=== PATIENT | male | born 1955 | race Caucasian/White ===

== ENCOUNTER 2021-01-07 11:23 | Outpatient (CLI) | payer MEDICARE, OTHER, SELFPAY ==
--- NOTE | ~2021-01-07 | MM_ITS ---
EXAMINATION: MM diagnostic mammo BI HISTORY: Bilateral retroareolar thickening TECHNIQUE: MLO and craniocaudal views of both breasts. CAD analysis was submitted and interpreted. COMPARISON: None BREAST PARENCHYMAL COMPOSITION: The breasts are almost entirely fatty. FINDINGS: No suspicious mass or architectural distortion, malignant calcification, skin thickening or retraction is detected. IMPRESSION: 1. No mammographic evidence of malignancy 2. No recommendations. BI-RADS Category 1: Negative Reviewed, dictated and finalized at location A.
== END 2021-01-07 11:24 | disposition home or self-care (01) ==
PROVIDERS: PCP Internal Medicine; Visit Provider Internal Medicine
DX: N63.32 Unspecified lump in axillary tail of the left breast (principal)
CPT/HCPCS: 77066

== ENCOUNTER 2021-06-16 08:26 | Outpatient (CLI) | payer MEDICARE, OTHER, SELFPAY ==
--- NOTE | 2021-07-06 18:22 | WPDSLEEPSTUD ---
Sleep Study Date of Study: 06/16/21 <Laney Orozco DO - Last Filed: 07/06/21 18:46> Ordering Provider: Mary Zamarripa MD <Laney Orozco DO - Last Filed: 07/06/21 18:46> Interpreting Physician: Laney Orozco DO <Laney Orozco DO - Last Filed: 07/06/21 18:46> Sleep Study Type: Polysomnogram <Laney Orozco DO - Last Filed: 07/06/21 18:46> Height: 1.93 m <Laney Orozco DO - Last Filed: 07/06/21 18:46> Weight: 148.831 kg <Laney Orozco DO - Last Filed: 07/06/21 18:46> Body Mass Index: 39.9 <Laney Orozco DO - Last Filed: 07/06/21 18:46> Neck Circumference (inches): 21 <Laney Orozco DO - Last Filed: 07/06/21 18:46> [place]: 7 <Laney Orozco DO - Last Filed: 07/06/21 18:46> Reason for Sleep Study The patient has known ASHA. He initially started using PAP in 2018. He was on CPAP 17 cm H2O but then was changed to autoPAP 15-20 cm H2O. He still had unrefreshing sleep and daytime hypersomnia despite the pressure chnages. <Laney Orozco DO - Last Filed: 07/06/21 18:46> Sleep History The patient is a 65-year-old male with previously diagnosed obstructive sleep apnea, atrial fibrillation, hypertension, venous insufficiency with stasis dermatitis and dyslipidemia that had a sleep study ordered by his primary care physician to recall of 5 for PAP therapy. The patient occasionally awakens from sleep short of breath. He denies awakening at night with heartburn, belching or cough. He occasionally snores loud enough that others complain. He denies having trouble sleeping when he has a cold. He frequently wakes up gasping for air throughout the night. He frequently has breathing problems at night observed by others. He rarely sweats excessively at night. He frequently has heart palpitations or irregular heartbeats during the night. He denies falling asleep during the day and while driving. He denies having trouble at school or work due to sleepiness. He denies sleep paralysis, cataplexy and hypnagogic / hypnopompic hallucinations. He rarely has nightmares. He occasionally has thoughts racing through his mind. He denies feeling sad or depressed. He occasionally feels anxious. He rarely notices parts of his body jerk. He denies kicking throughout the night. He occasionally has crawling and aching feelings in his legs but denies leg pain during the night. He denies grinding his teeth during sleep and awakening with jaw pain in morning. He is constantly bothered by pain during the day but rarely awakened by pain during the night. He frequently wakes up feeling stiff in the morning with sore and achy muscles. He goes to bed at 11:00 p.m. on both weekdays and weekends. It typically takes him between 15 and 45 minutes to fall asleep. He will wake up between 3 and 4 times per night. When he awakens, he will change positions and fall back asleep. He wakes up between 630 and 7:00 a.m. on both weekdays and weekends. He will typically stay in bed for 5 minutes after awakening in the morning. He is currently living with his girlfriend. He does not consume any caffeinated beverages within 2 hours of bedtime. He does not engage in physical exercise before bedtime. He will read and watch television before falling asleep. He does not take naps in the afternoon or the evening. He consumes caffeinated beverages daily. He has between 3 and 4 alcoholic drinks per day. He denies tobacco and recreational drug use. <Laney Orozco DO - Last Filed: 07/06/21 18:46> [facility] Past Medical History Medical History: Medical History Abdominal wall hernia repaired 2014 Anemia Atrial fibrillation Diastasis recti Dyslipidemia Essential hypertension ASHA (obstructive sleep apnea) Stasis dermatitis Venous insufficiency <Laney Orozco DO - Last Filed:
[2021-07-06 18:33] VITALS: BMI 39.9
== END 2021-06-17 07:21 | disposition home or self-care (01) ==
LOC: ANHCSM 08:27
PROVIDERS: PCP Internal Medicine; Visit Provider Internal Medicine Critical Care Medicine
DX: G47.33 Obstructive sleep apnea (adult) (pediatric) (principal)
CPT/HCPCS: 95810

== ENCOUNTER 2021-07-21 07:50 | Outpatient (CLI) | payer MEDICARE, OTHER, SELFPAY ==
--- NOTE | 2021-08-09 20:30 | WPDSLEEPSTUD ---
Sleep Study Date of Study: 07/21/21 <Laney Orozco DO - Last Filed: 08/10/21 14:18> Ordering Provider: Mary Zamarripa MD <Laney Orozco DO - Last Filed: 08/10/21 14:18> Interpreting Physician: Laney Orozco DO <Laney Orozco DO - Last Filed: 08/10/21 14:18> Sleep Study Type: BiPAP Titration <Laney Orozco DO - Last Filed: 08/10/21 14:18> Height: 1.93 m <Laney Orozco DO - Last Filed: 08/10/21 14:18> Weight: 153.314 kg <Lnaey Orozco DO - Last Filed: 08/10/21 14:18> Body Mass Index: 41.1 <Laney Orozco DO - Last Filed: 08/10/21 14:18> Neck Circumference (inches): 20.5 <Laney Orozco DO - Last Filed: 08/10/21 14:18> [place]: 2 <Laney Orozco DO - Last Filed: 08/10/21 14:18> Reason for Sleep Study The patient had a PSG on 06/16/2021 that showed an AHI of 30.4. It was recommended that he have a BPAP Titration starting at 12/8 cm H2O. <Laney Orozco DO - Last Filed: 08/10/21 14:18> Sleep History The patient is a 65-year-old male with previously diagnosed obstructive sleep apnea, atrial fibrillation, hypertension, venous insufficiency with stasis dermatitis and dyslipidemia that had a sleep study ordered by his primary care physician to recall of 5 for PAP therapy. The patient occasionally awakens from sleep short of breath. He denies awakening at night with heartburn, belching or cough. He occasionally snores loud enough that others complain. He denies having trouble sleeping when he has a cold. He frequently wakes up gasping for air throughout the night. He frequently has breathing problems at night observed by others. He rarely sweats excessively at night. He frequently has heart palpitations or irregular heartbeats during the night. He denies falling asleep during the day and while driving. He denies having trouble at school or work due to sleepiness. He denies sleep paralysis, cataplexy and hypnagogic / hypnopompic hallucinations. He rarely has nightmares. He occasionally has thoughts racing through his mind. He denies feeling sad or depressed. He occasionally feels anxious. He rarely notices parts of his body jerk. He denies kicking throughout the night. He occasionally has crawling and aching feelings in his legs but denies leg pain during the night. He denies grinding his teeth during sleep and awakening with jaw pain in morning. He is constantly bothered by pain during the day but rarely awakened by pain during the night. He frequently wakes up feeling stiff in the morning with sore and achy muscles. He goes to bed at 11:00 p.m. on both weekdays and weekends. It typically takes him between 15 and 45 minutes to fall asleep. He will wake up between 3 and 4 times per night. When he awakens, he will change positions and fall back asleep. He wakes up between 630 and 7:00 a.m. on both weekdays and weekends. He will typically stay in bed for 5 minutes after awakening in the morning. He is currently living with his girlfriend. He does not consume any caffeinated beverages within 2 hours of bedtime. He does not engage in physical exercise before bedtime. He will read and watch television before falling asleep. He does not take naps in the afternoon or the evening. He consumes caffeinated beverages daily. He has between 3 and 4 alcoholic drinks per day. He denies tobacco and recreational drug use. <Laney Orozco DO - Last Filed: 08/10/21 14:18> [facility] Past Medical History Medical History: Medical History Abdominal wall hernia repaired 2014 Anemia Atrial fibrillation Diastasis recti Dyslipidemia Essential hypertension ASHA (obstructive sleep apnea) Stasis dermatitis Venous insufficiency <Laney Orozco DO - Last Filed: 08/10/21 14:18> Surgical History Surgical History: Surgical History (Review
[2021-08-10 14:10] VITALS: BMI 41.1
== END 2021-07-22 07:03 | disposition home or self-care (01) ==
LOC: ANHCSM 07:51
PROVIDERS: PCP Internal Medicine; Visit Provider Internal Medicine Critical Care Medicine
DX: G47.33 Obstructive sleep apnea (adult) (pediatric) (principal)
CPT/HCPCS: 95811

== ENCOUNTER 2021-10-27 10:48 | Outpatient (CLI) | payer MEDICARE, OTHER, SELFPAY ==
--- NOTE | ~2021-10-27 | XR_ITS ---
XR lumbar spine 2-3V DATE: 10/27/2021 11:52 INDICATION: Back pain TECHNIQUE: AP, lateral, coned lateral lumbosacral views COMPARISON: 10/20/2017 lumbar spine 01/16/2017 MRI lumbar spine FINDINGS: Again noted is grade 1 anterolisthesis at L5-S1 due to bilateral L5 pars intra-articular is defects. There is moderately severe degenerative disc disease at L3-4 and L5-S1 and to a lesser extent L4-5. The included lower thoracic and lumbar pedicles are intact. No fracture or bone destruction is evident. The lumbar pedicles appear intact. The sacral iliac joints appear normal. Surgical clips overlie the right upper quadrant, likely due to cholecystectomy. IMPRESSION: Bilateral L5 pars defects with grade 1 anterolisthesis at L5-S1 Multilevel degenerative disc disease, greatest at L3-4 and L5-S1 Little interval change since 10/20/2017 Reviewed, dictated and finalized at location A.
--- NOTE | ~2021-10-27 | US_ITS ---
EXAMINATION: US abdomen complete EXAM DATE: 10/27/2021 11:50 INDICATION: Z87.898 - Personal history of other specified conditions . TECHNIQUE: Multiple grayscale and Doppler images of the complete abdomen were obtained (by a technolo gist who performed the scan) and subsequently reviewed. Correlation is made to CT and MRI abdomen fro m 2010. FINDINGS: The abdominal aorta is normal in caliber. Visualized portion IVC is patent. The pancreatic head a nd body are normal in appearance. The pancreatic tail is not visualized. The liver has normal echogenicity and contour. There is a mass probably left liver lobe measuring 4 cm. Correlating with a prior MRI report from 2010, patient does have known masses which have been pre viously suspected to be benign. Largest mass on that study measured 5 cm. There is no evidence of in trahepatic biliary duct dilation. Portal venous flow was seen in the hepatopedal, normal direction a nd has normal Doppler waveform. Common bile duct measures 5 mm, which is normal. The gallbladder fossa is unremarkable. Right kidney: There is normal contour and echogenicity. It measures 12.9 x 5.5 x 6.7 centimeters. There are no focal renal lesions identified. There is no hydronephrosis. Left kidney: There is normal contour and echogenicity. It measures 14.1 x 5.0 x 5.6 centimeters. A focal lobular region was measured at 2.7 x 2.0 x 2.1 cm, most likely dromedary hump (normal renal cor tical lobulation). Correlation for this was made with coronal CT images from 2010 which does show lob ulation in this region. There is a cyst in the superior pole of the left kidney. There is no hydron ephrosis. The spleen measures 16.9 centimeters which is moderately enlarged. IMPRESSION: 1. Left liver lobe 4 cm mass probably the largest suspected benign mass on MRI from 2010. 2. Moderate splenomegaly. Normal portal venous flow. Reviewed, dictated and finalized at location B.
--- NOTE | ~2021-10-27 | XR_ITS ---
XR hip BI 2V w AP pelvis DATE: 10/27/2021 11:51 INDICATION: Back pain TECHNIQUE: AP pelvis. AP and lateral views of each hip. COMPARISON: None FINDINGS: The pubic symphysis and sacroiliac joints are intact. No pelvic fracture or bone destruction is detected. There is mild bilateral hip osteoarthritis. No fracture or dislocation, avascular necrosis or bone de struction is detected. IMPRESSION: Mild bilateral hip osteoarthritis Reviewed, dictated and finalized at location A.
== END 2021-10-27 10:49 | disposition home or self-care (01) ==
PROVIDERS: PCP Internal Medicine; Visit Provider Internal Medicine
DX: M47.817 Spondylosis without myelopathy or radiculopathy, lumbosacral region (principal); F10.10 Alcohol abuse, uncomplicated; Z87.898 Personal history of other specified conditions; R16.0 Hepatomegaly, not elsewhere classified; R16.1 Splenomegaly, not elsewhere classified; M16.0 Bilateral primary osteoarthritis of hip
CPT/HCPCS: 72100; 73521; 76700

== ENCOUNTER 2021-12-07 08:41 | Outpatient (CLI) | payer MEDICARE, OTHER, SELFPAY ==
--- NOTE | ~2021-12-07 | XR_ITS ---
EXAMINATION: XR chest 2V 12/07/2021 12:59 INDICATION: Status post fall. Right chest pain. PROCEDURE: 2 view chest COMPARISON: No prior studies for comparison. FINDINGS: The lungs are clear. The cardiomediastinal silhouette is borderline. There are no pleural effusions. There is no pneumothorax suspected. IMPRESSION: 1: NO ACUTE CARDIOPULMONARY DISEASE. Reviewed, dictated and finalized at location A.
--- NOTE | 2021-12-07 11:15 | NEURO_ITS ---
Impression: # Complains of numbness of feet. 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 # Needle/EMG revealed no active denervation potentials but severe scarcity of motor unit potentials. # Clinical correlation recommended. Nerve Conduction Studies Anti Sensory Summary Table Stim Site NR Peak (ms) P-T Amp (?V) Site1 Site2 Delta-P (ms) Dist (cm) Ron (m/s) Left Sup Fibular Anti Sensory (Ant Lat Mall) NO RESPONSE 14 cm NR 14 cm Ant Lat Mall 16.0 Right Sup Fibular Anti Sensory (Ant Lat Mall) NO RESPONSE 14 cm NR 14 cm Ant Lat Mall 16.0 Left Sural Anti Sensory (Lat Mall) NO RESPONSE Calf NR Calf Lat Mall 16.0 Right Sural Anti Sensory (Lat Mall) NO RESPONSE Calf NR Calf Lat Mall 16.0 Motor Summary Table Stim Site NR Onset (ms) O-P Amp (mV) Site1 Site2 Delta-0 (ms) Dist (cm) Ron (m/s) Left Peroneal Motor (Vastus Med) NO RESPONSE Ankle NR Popit Ankle 0.0 Popit NR Right Peroneal Motor (Vastus Med) Ankle 4.3 2.1 Popit Ankle 9.8 42.0 43 Popit 14.1 2.1 Left Tibial Motor (Abd Moore Brev) NO RESPONSE Ankle NR Knee NR Right Tibial Motor (Abd Moore Brev) NO RESPONSE Ankle NR Knee NR F Wave Studies NR F-Lat (ms) L-R F-Lat (ms) Left Peroneal (Mrkrs) (EDB) NO RESPONSE NR Right Peroneal (Mrkrs) (EDB) 63.01 Left Tibial (Mrkrs) (Abd Hallucis) 62.69 Right Tibial (Mrkrs) (Abd Hallucis) NO RESPONSE NR EMG Side Muscle Nerve Root Ins Act Fibs Amp Dur Recrt Comment Right AntTibialis Dp Br Fibular L4-5 Nml Nml Nml Nml Reduced Right Gastroc Tibial S1-2 Nml Nml Nml Nml Reduced Right Fibularis Long Sup Br Fibular L5-S1 Nml Nml Nml Nml Reduced Right Flex Dig Long Tibial L5-S2 Nml Nml Nml Nml Reduced Right Ext Dig Brev Dp Br Fibular L5, S1 Nml Nml Nml Nml Reduced Left AntTibialis Dp Br Fibular L4-5 Nml Nml Nml Nml Reduced Left Gastroc Tibial S1-2 Nml Nml Nml Nml Reduced Left Fibularis Long Sup Br Fibular L5-S1 Nml Nml Nml Nml Reduced Left Flex Dig Long Tibial L5-S2 Nml Nml Nml Nml Reduced Left Ext Dig Brev Dp Br Fibular L5, S1 Nml Nml Nml Nml Reduced Right QuadratusFem QuadFemoris L4-5, S1 Nml Nml Nml Nml Reduced Left QuadratusFem QuadFemoris L4-5, S1 Nml Nml Nml Nml Reduced MTDD
== END 2021-12-07 08:42 | disposition home or self-care (01) ==
PROVIDERS: PCP Internal Medicine; Visit Provider Internal Medicine
DX: G62.9 Polyneuropathy, unspecified (principal); R07.89 Other chest pain; R94.131 Abnormal electromyogram [EMG]
CPT/HCPCS: 71046; 95886; 95910

== ENCOUNTER 2022-02-02 13:11 | Outpatient (RCR) | payer MEDICARE, OTHER, SELFPAY ==
[2022-02-02 15:11] VITALS: BP 130/78; PULSE 75; TEMP 36.8; O2SAT 98
[2022-02-02] MEDS: ACETAMINOPHEN 325 MG TABLET 650 MG PO (15:17)
[2022-02-02] MEDS: FAMOTIDINE 20 MG TABLET PO (15:18)
[2022-02-02] MEDS: diphenhydrAMINE HCl CAP 25 MG CAPSULE PO (15:18)
[2022-02-02] MEDS: BEBTELOVIMAB 175 MG/2 ML VIAL IV PUSH (15:34)
[2022-02-02 16:30] VITALS: BP 152/77; PULSE 88; O2SAT 96
== END 2022-02-02 16:00 ==
LOC: AMCINF 13:11
PROVIDERS: PCP Internal Medicine; Referring Provider Internal Medicine; Visit Provider Internal Medicine Hematology & Oncology
DX: U07.1 COVID-19 (principal); I25.10 Atherosclerotic heart disease of native coronary artery without angina pectoris
CPT/HCPCS: A9270; M0222; Q0222

== ENCOUNTER 2022-07-07 07:00 | Outpatient (NON) | payer MEDICARE, OTHER, SELFPAY | END 2022-07-07 07:01 | disposition home or self-care (01) | PROVIDERS: Visit Provider Nurse Practitioner | DX: D22.5 Melanocytic nevi of trunk (principal) | CPT/HCPCS: 88305 ==

== ENCOUNTER 2022-07-18 09:45 | Outpatient (CLI) | payer MEDICARE, OTHER, SELFPAY ==
[2022-07-18 10:24] LABS: Hemoglobin A1C 5.9 % (<5.7)
== END 2022-07-18 09:46 | disposition home or self-care (01) ==
PROVIDERS: Visit Provider Nurse Practitioner
DX: R73.09 Other abnormal glucose (principal)
CPT/HCPCS: 36415; 83036

== ENCOUNTER 2022-08-02 07:00 | Outpatient (NON) | payer MEDICARE, OTHER, SELFPAY | END 2022-08-02 07:01 | disposition home or self-care (01) | LOC: ANHLAB 08-03 10:51 | PROVIDERS: Visit Provider Nurse Practitioner | DX: I78.1 Nevus, non-neoplastic (principal) | CPT/HCPCS: 88305 ==

== ENCOUNTER → 2022-08-23 12:29 | Outpatient (CLI) | payer MEDICARE, OTHER, SELFPAY ==
--- NOTE | ~2022-08-23 | US_ITS ---
EXAMINATION: US soft tissue head and neck DATE: 08/23/2022 12:48 INDICATION: Mass or lump at the anterior left neck TECHNIQUE: Multiple grayscale and Doppler ultrasound images of the region of concern at the supraclav icular anterior left neck were obtained. COMPARISON: None FINDINGS/IMPRESSION: No pathologically enlarged lymph nodes or other abnormal masses or fluid collections identified in th e region of concern. Reviewed, dictated and finalized at location L. RVISOR COFFEE
== END ==
PROVIDERS: PCP Nurse Practitioner; Visit Provider Nurse Practitioner
DX: R22.9 Localized swelling, mass and lump, unspecified (principal)
CPT/HCPCS: 76536

== ENCOUNTER 2022-09-19 11:39 | Outpatient (CLI) | payer MEDICARE, OTHER, SELFPAY ==
[2022-09-21 12:27] LABS: PCP NEGATIVE ng/mL (<25)
[2022-09-23 08:23] LABS: Amphetamines Negative; Barbiturates Negative; Benzodiazepines Negative; Cocaine Metabolites Negative; Marijuana Metabolites Negative
== END 2022-09-19 11:40 | disposition home or self-care (01) ==
LOC: ANHLAB 11:41
PROVIDERS: PCP Nurse Practitioner; Visit Provider Internal Medicine
DX: Z79.899 Other long term (current) drug therapy (principal)
CPT/HCPCS: 80307

== ENCOUNTER 2023-02-01 15:36 | Outpatient (CLI) | payer MEDICARE, OTHER, SELFPAY ==
[2023-02-01 16:41] LABS: Basophils Percent Auto 1.1 % (0.2-1.2); Eosinophils Absolute Auto 0.2 K/mm3 (0-0.3); Hematocrit 40.8 % (42.0-52.0); Hemoglobin 13.4 g/dL (14.0-18.0); Immature Granulocyte Absolute 0.02 K/mm3 (0.00-0.031); Immature Granulocyte Percent A 0.6 % (0-0.5); Lymphocytes Absolute Auto 0.94 K/mm3 (0.9-3.2); Lymphocytes Percent Auto 26.1 % (18.3-44.2); Mean Corpuscular HGB Conc 32.8 g/dl (32-36); Mean Corpuscular Hemoglobin 28.6 pg (26-34); Mean Platelet Volume 9.1 fl (7.4-10.4); Monocytes Absolute Auto 0.4 K/mm3 (0.1-0.6); Monocytes Percent Auto 11.4 % (2.6-8.5); Neutrophils Percent Auto 55.8 % (45.5-73.1); Platelet Count Result 138 k/mm3 (150-375); Red Blood Count 4.69 M/mm3 (4.6-6.20); Red Cell Distribution Width 17.2 % (11.5-14.5); White Blood Count 3.6 K/mm3 (4.5-10.0)
[2023-02-01 16:53] LABS: Alanine Aminotransferase 49 U/L (6-50); Albumin Level 4.1 g/dL (3.5-5.1); Alkaline Phosphatase 58 U/L (38-126); Anion Gap 3 mmol/L (8-16); Aspartate Amino Transferase 42 U/L (17-59); Blood Urea Nitrogen 11 mg/dL (9-20); Calcium 8.7 mg/dL (8.4-10.2); Carbon Dioxide 33 mmol/L (22-30); Chloride 101 mmol/L (98-107); Estimated Glomerular Filt Rate > 60; Glucose 96 mg/dL (65-110); Potassium 4.1 mmol/L (3.4-5.0); Sodium 137 mmol/L (137-145)
[2023-02-01 17:54] LABS: Hemoglobin A1C 5.1 % (<5.7)
[2023-02-01 18:32] LABS: Creatinine Urine 37.4 mg/dL
[2023-02-01 18:55] LABS: MALB Creatinine Ratio < 16.0 mg/g (0-30); Microalbumin Urine Random < 6.0 mg/L (0-16.7)
== END 2023-02-01 15:37 | disposition home or self-care (01) ==
PROVIDERS: PCP Nurse Practitioner Family; Visit Provider Nurse Practitioner Family
DX: Z12.5 Encounter for screening for malignant neoplasm of prostate (principal); R73.09 Other abnormal glucose; I10 Essential (primary) hypertension
CPT/HCPCS: 36415; 80053; 82043; 83036; 84153; 85025; G0103

== ENCOUNTER 2023-03-06 11:37 | Outpatient (CLI) | payer MEDICARE, OTHER, SELFPAY ==
--- NOTE | 2023-03-07 12:05 | WPDPFTINT ---
PFT Procedure Performed PFT Procedure Performed Spirometry with Pre/Post Bronchodilator Plethysmography (Lung Vol) Diffusing Cap (DLCO) Flow Vol Loop PFT Interpretation DOS:03/06/2023 REQUESTING: Ariana Macario APRN REASON FOR TESTING: Shortness of breath PULMONARY FUNCTION TESTS Results are reliable and reproducible. Spirometry: Pre bronchodilator FEV1 is 2.61 L, 64%, decreased. Pre bronchodilator FVC is 4.19 L, 77%, low end of normal. FEV1/ FVC ratio is 62%, decreased, consistent with airflow obstruction. The FEF 25-75 is 1.29 L, 42%, decreased. After bronchodilator, there is a 10% increase in the FEV1, 2.87 L, 70% predicted still below normal. After bronchodilator FVC increases by 4%, 4.37 L, 81%, normal. FEV1/FVC after bronchodilator 66%. This is in the normal range. The FEF 25-75 becomes 1.63 L, 53% predicted, 27% increase. Lung volumes: Total lung capacity is 7.75 L, 94% predicted, normal. Residual volume is 3.51 L, 131% predicted, higher than normal, consistent with air trapping. RV/TLC is 45%, increased, consistent with air trapping. Airway resistance is increased, 5.35, 432% predicted. Diffusion: DLCO is 24.7, 83%, normal. DLCO/ VA is 3.99, 106% predicted, normal. Flow volume loop: There is mild coving of the expiratory limb. IMPRESSION: This study shows a mild obstructive ventilatory impairment with a mild response to bronchodilator. The 10% increase in FEV1 is not statistically significant, below the 12% threshold. There is a severe small airways pattern with an excellent response to bronchodilator. There is mild air trapping and normal diffusion. Lack of response to bronchodilator should not preclude use if clinically indicated. In the proper clinical setting this pattern may be consistent with asthma. No prior studies are available for comparison. Mary Zamarripa MD
== END 2023-03-06 11:38 | disposition home or self-care (01) ==
LOC: ANHPFT 11:37
PROVIDERS: PCP Nurse Practitioner Family; Visit Provider Nurse Practitioner Family
DX: R06.02 Shortness of breath (principal)
CPT/HCPCS: 94060; 94726; 94729

== ENCOUNTER 2023-08-23 10:57 | Outpatient (CLI) | payer MEDICARE, SELFPAY ==
[2023-08-23 12:03] LABS: Hemoglobin A1C 5.7 % (<5.7)
[2023-08-23 12:25] LABS: Free T4 Free Thyroxine 1.09 ng/mL (0.78-2.19)
== END 2023-08-23 10:58 | disposition home or self-care (01) ==
PROVIDERS: PCP Nurse Practitioner Family; Visit Provider Nurse Practitioner Family
DX: R73.09 Other abnormal glucose (principal); I10 Essential (primary) hypertension; G62.9 Polyneuropathy, unspecified; G47.33 Obstructive sleep apnea (adult) (pediatric); E66.01 Morbid (severe) obesity due to excess calories; D50.9 Iron deficiency anemia, unspecified; R53.83 Other fatigue; I48.19 Other persistent atrial fibrillation
CPT/HCPCS: 36415; 83036; 84439; 84443

== ENCOUNTER 2023-10-17 15:10 | Outpatient (CLI) | payer MEDICARE, SELFPAY ==
[2023-10-17 15:37] LABS: Basophils Percent Auto 0.5 % (0.2-1.2); Eosinophils Absolute Auto 0.2 K/mm3 (0-0.3); Eosinophils Percent Auto 4.5 % (0-4.4); Hematocrit 39.1 % (42.0-52.0); Hemoglobin 11.5 g/dL (14.0-18.0); Immature Granulocyte Absolute 0.01 K/mm3 (0.00-0.031); Immature Granulocyte Percent A 0.2 % (0-0.5); Lymphocytes Absolute Auto 0.78 K/mm3 (0.9-3.2); Lymphocytes Percent Auto 18.5 % (18.3-44.2); Mean Corpuscular HGB Conc 29.4 g/dl (32-36); Mean Corpuscular Hemoglobin 23.8 pg (26-34); Mean Corpuscular Volume 80.8 fl (80-100); Mean Platelet Volume 9.4 fl (7.4-10.4); Monocytes Absolute Auto 0.5 K/mm3 (0.1-0.6); Monocytes Percent Auto 12.8 % (2.6-8.5); Neutrophils Absolute Auto 2.7 K/mm3 (1.3-6.7); Neutrophils Percent Auto 63.5 % (45.5-73.1); Platelet Count Result 171 k/mm3 (150-375); Red Blood Count 4.84 M/mm3 (4.6-6.20); Red Cell Distribution Width 15.2 % (11.5-14.5); White Blood Count 4.2 K/mm3 (4.5-10.0)
[2023-10-17 15:46] LABS: Alanine Aminotransferase 45 U/L (6-50); Albumin Level 4.1 g/dL (3.5-5.1); Alkaline Phosphatase 58 U/L (38-126); Anion Gap 5 mmol/L (8-16); Aspartate Amino Transferase 42 U/L (17-59); Bilirubin,Total 0.8 mg/dL (0.2-1.3); Blood Urea Nitrogen 13 mg/dL (9-20); Calcium 9.3 mg/dL (8.4-10.2); Carbon Dioxide 31 mmol/L (22-30); Chloride 101 mmol/L (98-107); Cholesterol 111 mg/dL (0-200); Estimated Glomerular Filt Rate > 60; Glucose 132 mg/dL (65-110); HDL Direct 49 mg/dL; Potassium 4.4 mmol/L (3.4-5.0); Sodium 137 mmol/L (137-145); Triglycerides 140 mg/dL (<150)
[2023-10-17 15:58] LABS: LDL Cholesterol Direct 53 mg/dL
[2023-10-17 16:06] LABS: Anisocytosis 1+; Ovalocytes 1+; Platelet Estimate Adequate (Adequate); Schistocytes None Seen
[2023-10-17 16:38] LABS: Creatinine Urine 76.1 mg/dL
[2023-10-17 17:08] LABS: Microalbumin Urine Random < 6.0 mg/L (0-16.7)
[2023-10-17 17:09] LABS: MALB Creatinine Ratio < 7.9 mg/g (0-30)
== END 2023-10-17 15:11 | disposition home or self-care (01) ==
LOC: ANHLAB 15:14
PROVIDERS: PCP Nurse Practitioner Family; Visit Provider Nurse Practitioner Family
DX: D64.9 Anemia, unspecified (principal); I10 Essential (primary) hypertension; I87.2 Venous insufficiency (chronic) (peripheral); E66.01 Morbid (severe) obesity due to excess calories
CPT/HCPCS: 36415; 80053; 80061; 82043; 85025

== ENCOUNTER 2024-01-17 00:03 | Day surgery (SDC) | payer MEDICARE, SELFPAY ==
[2024-01-08 13:32] VITALS: BMI 41.3
--- NOTE | 2024-01-08 14:22 | PC.NURSE ---
Spoke with __PATIENT AND SPOUSE__ regarding medication _XARELTO_. Pt. verbalizes understanding that the last dose of _XARELTO_ is to be taken on _01/14/2024_ and the Endoscopist will instruct them when to restart after the procedure.
[2024-01-17] MEDS: LACTATED RINGERS 1,000 ML 150 ML IV CONT (08:31)
[2024-01-17 08:33] VITALS: BP 162/92; PULSE 88; RESP 20; TEMP 36.2; O2SAT 97; BMI 38.7
--- NOTE | 2024-01-17 08:35 | SUR.PREOP ---
Pt's last dose of xarelto on Monday. Was supposed to stop on Monday. Dr. Anne made aware. Ok to proceed with procedure.
--- NOTE | 2024-01-17 08:52 | WPDANESEPPF ---
Anes - Initial Pre Proc Eval Procedure: Operation Date: 01/17/24 09:30 Proposed Procedures p Esophagogastroduodenoscopy & Colonoscopy - Ramin Fernandez MD Date/Time: 01/17/24 08:52 Surgeon: Ramin Fernandez MD Pre Op Diagnosis: JUAN CARLOS, Personal Hx. colon polyps,Angiodyplasia Patient Data Age: 68 Gender: M Height: 1.93 m Weight: 144.6 kg Last Vital Signs Temp 97.2 F L 01/17/24 08:33 Pulse 88 01/17/24 08:33 Resp 20 01/17/24 08:33 BP 162/92 H 01/17/24 08:33 Pulse Ox 97 01/17/24 08:33 O2 Del Method Room Air 01/17/24 08:33 Allergies Allergy/AdvReac Type Severity Reaction Status Date / Time No Known Allergies Allergy NONE Verified 01/17/24 08:32 Home Medications Medication Instructions Recorded Confirmed Type pantoprazole 40 mg tablet,delayed 40 mg PO DAILY 05/14/21 01/08/24 History release albuterol sulfate 90 mcg/actuation 2 puff inhalation Q6H PRN 03/31/23 01/08/24 Rx aerosol inhaler (ProAir HFA) Shortness of breath #8.5 grams hydrocodone 10 mg-acetaminophen 1 tablet PO Q6H PRN Pain 08/09/23 01/08/24 History 325 mg tablet carvedilol 25 mg tablet 25 mg PO Q12H #180 tabs 08/14/23 01/08/24 Rx hydrochlorothiazide 12.5 mg tablet 12.5 mg PO DAILY #90 tabs 08/14/23 01/08/24 Rx amlodipine 5 mg tablet 5 mg PO DAILY #90 tabs 10/09/23 01/08/24 Rx telmisartan 80 mg tablet 80 mg PO DAILY #90 tabs 10/12/23 01/08/24 Rx cholestyramine (with sugar) 4 gram 4 g PO DAILY #30 ea 12/05/23 01/08/24 Rx powder for susp in a packet rivaroxaban 20 mg tablet (Xarelto) 20 mg PO DAILY #90 tabs 12/19/23 01/08/24 Rx cholecalciferol (vitamin D3) 125 125 mcg PO QMWF 01/08/24 01/08/24 History mcg (5,000 unit) tablet (Vitamin D3) Patient hx anesthesia problems: none Family hx anesthesia problems: none Results Review: All pre-operative results and documents have been reviewed as part of the pre-operative evaluation. [facility] Past Medical History Medical History Abdominal wall hernia repaired 2014 Actinic keratosis Anemia Atrial fibrillation Degenerative cervical disc Diastasis recti Dyslipidemia Essential hypertension Lumbar degenerative disc disease ASHA (obstructive sleep apnea) Stasis dermatitis Venous insufficiency Surgical History Surgical History History of umbilical hernia repair 2005 S/P vasectomy Family History Family History Father Acute myocardial infarction Patient's father is Mother Patient's mother is Family history of chronic obstructive pulmonary disease Other Cerebrovascular accident Family history of arthritis Hypertension Social History Social History Smoking status: Never smoker Second hand tobacco smoke exposure: Yes Alcohol intake: current Drinks per week: 14 Alcohol use details: [facility] Substance use: never Substance use type: does not use Other substance usage details: CBD/THC OINTMENT NEEDED Lack of Transportation: No Lack of Food: Never True Current Housing: I Have Housing Concerned About Future Housing: No Difficulty Paying Gas/Electric Bills: No Difficulty Paying for Meds: No Currently Unemployed: No Education: High School Diploma/GED Difficulty w/ Childcare or Family Care: No Living arrangements: with family Occupation/Education: retired Gender identity (if verbalized by the patient): Male Spiritual care concerns: No Anes - Eval Final PreProcedure Day of Procedure 01/17/24 08:52 Patient weight: obese Heart: regular rate and rhythm Lungs: clear to auscultation Airway: Mallampati scale and special considerations (Crack on upper L incisor noted and has been repaired. ) Neurological: a
--- NOTE | 2024-01-17 09:11 | PM.HPGS ---
History of Present Illness History of Present Illness Consent: Risks, benefits, and alternatives have been discussed and questions answered. Patient agrees to proceed with procedure. Chief complaint: JUAN CARLOS, Personal Hx. 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 Review of Systems Review of Systems: All systems reviewed & are unremarkable except as noted in HPI and below PMFSH Past Medical History Medical History Abdominal wall hernia repaired 2014 Actinic keratosis Anemia Atrial fibrillation Degenerative cervical disc Diastasis recti Dyslipidemia Essential hypertension Lumbar degenerative disc disease ASHA (obstructive sleep apnea) Stasis dermatitis Venous insufficiency Surgical History Surgical History History of umbilical hernia repair 2005 S/P vasectomy Family History Family History Father Acute myocardial infarction Patient's father is Mother Patient's mother is Family history of chronic obstructive pulmonary disease Other Cerebrovascular accident Family history of arthritis Hypertension Social History Social History Smoking status: Never smoker Second hand tobacco smoke exposure: Yes Alcohol intake: current Drinks per week: 14 Alcohol use details: [facility] Substance use: never Substance use type: does not use Other substance usage details: CBD/THC OINTMENT NEEDED Lack of Transportation: No Lack of Food: Never True Current Housing: I Have Housing Concerned About Future Housing: No Difficulty Paying Gas/Electric Bills: No Difficulty Paying for Meds: No Currently Unemployed: No Education: High School Diploma/GED Difficulty w/ Childcare or Family Care: No Living arrangements: with family Occupation/Education: retired Gender identity (if verbalized by the patient): Male Spiritual care concerns: No Meds Home Medications and Allergies Home Medications Medication Instructions Recorded Confirmed Type pantoprazole 40 mg tablet,delayed 40 mg PO DAILY 05/14/21 01/08/24 History release albuterol sulfate 90 mcg/actuation 2 puff inhalation Q6H PRN 03/31/23 01/08/24 Rx aerosol inhaler (ProAir HFA) Shortness of breath #8.5 grams hydrocodone 10 mg-acetaminophen 1 tablet PO Q6H PRN Pain 08/09/23 01/08/24 History 325 mg tablet carvedilol 25 mg tablet 25 mg PO Q12H #180 tabs 08/14/23 01/08/24 Rx hydrochlorothiazide 12.5 mg tablet 12.5 mg PO DAILY #90 tabs 08/14/23 01/08/24 Rx amlodipine 5 mg tablet 5 mg PO DAILY #90 tabs 10/09/23 01/08/24 Rx telmisartan 80 mg tablet 80 mg PO DAILY #90 tabs 10/12/23 01/08/24 Rx cholestyramine (with sugar) 4 gram 4 g PO DAILY #30 ea 12/05/23 01/08/24 Rx powder for susp in a packet rivaroxaban 20 mg tablet (Xarelto) 20 mg PO DAILY #90 tabs 12/19/23 01/08/24 Rx cholecalciferol (vitamin D3) 125 125 mcg PO QMWF 01/08/24 01/08/24 History mcg (5,000 unit) tablet (Vitamin D3) Allergies Allergy/AdvReac Type Severity Reaction Status Date / Time No Known Allergies Allergy NONE Verified 01/17/24 08:32 Vital Signs Vital Signs - 24 hr 01/17/24 08:33 Temperature 97.2 F L Pulse Rate 88 Respiratory Rate 20 Blood Pressure 162/92 H Pulse Oximetry 97 Oxygen Delivery Room Air Exam Const: General: comfortable and no acute distress HENMT: Face/Nose/Sinus: Normal nares present Eyes: General: appearance normal, both eyes and all related structures Neck: Neck: no JVD Resp: Auscultation: clear to auscultation
--- NOTE | 2024-01-17 09:29 | SUR.OPER ---
EGD: COLON: Start 922
[2024-01-17 09:36] VITALS: BP 117/81; PULSE 87; RESP 20; O2SAT 97
[2024-01-17 09:46] VITALS: BP 122/77; PULSE 81; RESP 20; O2SAT 93
[2024-01-17 09:55] VITALS: BP 139/89; PULSE 81; RESP 20; O2SAT 95
== END 2024-01-17 10:07 | disposition home or self-care (01) ==
PROVIDERS: PCP Nurse Practitioner Family; Referring Provider Nurse Practitioner Family; Visit Provider Internal Medicine Gastroenterology
PROC: 0DJ08ZZ Inspection of Upper Intestinal Tract, Via Natural or Artificial Opening Endoscopic (ICD-10-PCS; CPT 43235; principal; 2024-01-17 09:30)
DX: R19.7 Diarrhea, unspecified (principal); D12.2 Benign neoplasm of ascending colon; K57.30 Diverticulosis of large intestine without perforation or abscess without bleeding; D64.9 Anemia, unspecified; I48.91 Unspecified atrial fibrillation; I10 Essential (primary) hypertension; E78.5 Hyperlipidemia, unspecified; G47.33 Obstructive sleep apnea (adult) (pediatric); I87.2 Venous insufficiency (chronic) (peripheral); E66.9 Obesity, unspecified; Z68.38 Body mass index [BMI] 38.0-38.9, adult; Z79.51 Long term (current) use of inhaled steroids; Z79.01 Long term (current) use of anticoagulants
CPT/HCPCS: 45385; 45380; 43239; 88305; J2704; J7120

== ENCOUNTER 2024-02-27 10:37 | Outpatient (CLI) | payer MEDICARE, SELFPAY ==
[2024-02-27 11:29] LABS: Hemoglobin A1C 5.8 % (<5.7)
[2024-02-27 11:47] LABS: Basophils Percent Auto 0.8 % (0.2-1.2); Eosinophils Absolute Auto 0.2 K/mm3 (0-0.3); Eosinophils Percent Auto 4.5 % (0-4.4); Hematocrit 36.8 % (42.0-52.0); Immature Granulocyte Absolute 0.01 K/mm3 (0.00-0.031); Immature Granulocyte Percent A 0.3 % (0-0.5); Lymphocytes Absolute Auto 0.76 K/mm3 (0.9-3.2); Lymphocytes Percent Auto 20.2 % (18.3-44.2); Mean Corpuscular HGB Conc 29.9 g/dl (32-36); Mean Corpuscular Volume 76.8 fl (80-100); Mean Platelet Volume 9.8 fl (7.4-10.4); Monocytes Absolute Auto 0.5 K/mm3 (0.1-0.6); Neutrophils Absolute Auto 2.3 K/mm3 (1.3-6.7); Neutrophils Percent Auto 62.2 % (45.5-73.1); Platelet Count Result 139 k/mm3 (150-375); Red Blood Count 4.79 M/mm3 (4.6-6.20); Red Cell Distribution Width 17.3 % (11.5-14.5); White Blood Count 3.8 K/mm3 (4.5-10.0)
[2024-02-27 12:13] LABS: Vitamin D 25 Hydroxy 43.9 ng/mL
[2024-02-27 12:14] LABS: Hypochromasia 1+; Ovalocytes 1+; Platelet Estimate Adequate (Adequate); Schistocytes None Seen
[2024-02-27 13:19] LABS: Alanine Aminotransferase 38 U/L (6-50); Albumin Level 4.1 g/dL (3.5-5.1); Alkaline Phosphatase 61 U/L (38-126); Anion Gap 7 mmol/L (4-12); Aspartate Amino Transferase 33 U/L (17-59); Bilirubin,Total 0.8 mg/dL (0.2-1.3); Blood Urea Nitrogen 11 mg/dL (9-20); Calcium 9.2 mg/dL (8.4-10.2); Carbon Dioxide 30 mmol/L (22-30); Chloride 100 mmol/L (98-107); Cholesterol 100 mg/dL (0-200); Estimated Glomerular Filt Rate > 60; Glucose 129 mg/dL (65-110); HDL Direct 50 mg/dL; Potassium 4.1 mmol/L (3.4-5.0); Sodium 137 mmol/L (137-145); Triglycerides 118 mg/dL (<150)
[2024-02-27 13:29] LABS: LDL Cholesterol Direct 38 mg/dL
== END 2024-02-27 10:38 | disposition home or self-care (01) ==
LOC: ANHLAB 10:42
PROVIDERS: PCP Nurse Practitioner Family; Visit Provider Nurse Practitioner Family
DX: I48.19 Other persistent atrial fibrillation (principal); E78.5 Hyperlipidemia, unspecified; I10 Essential (primary) hypertension; D50.9 Iron deficiency anemia, unspecified; D64.9 Anemia, unspecified; E66.01 Morbid (severe) obesity due to excess calories; G47.33 Obstructive sleep apnea (adult) (pediatric); R73.09 Other abnormal glucose
CPT/HCPCS: 36415; 80053; 80061; 82306; 83036; 85025

== ENCOUNTER 2024-06-20 15:11 | Outpatient (CLI) | payer MEDICARE, SELFPAY ==
[2024-06-22 16:54] LABS: Beef IgE (F27) 0.11 kU/L; Lamb (F88) IgE <0.10 kU/L; Lamb Class 0; Pork (F26) IgE <0.10 kU/L; Pork Class 0
[2024-06-25 11:54] LABS: Galactose Alpha 1,3 IgE 0.26 kU/L (<0.10)
== END 2024-06-20 15:12 | disposition home or self-care (01) ==
PROVIDERS: PCP Nurse Practitioner Family; Visit Provider Nurse Practitioner Family
DX: T78.40XA Allergy, unspecified, initial encounter (principal); D50.9 Iron deficiency anemia, unspecified; K52.9 Noninfective gastroenteritis and colitis, unspecified; X58.XXXA Exposure to other specified factors, initial encounter
CPT/HCPCS: 36415; 86008

== ENCOUNTER 2024-06-21 16:00 | Outpatient (CLI) | payer MEDICARE, SELFPAY | END 2024-06-21 16:01 | disposition home or self-care (01) | PROVIDERS: PCP Nurse Practitioner Family; Visit Provider Nurse Practitioner Family | DX: K52.9 Noninfective gastroenteritis and colitis, unspecified (principal); D50.9 Iron deficiency anemia, unspecified | CPT/HCPCS: 82653; 83993 ==

== ENCOUNTER 2024-07-09 07:12 | Outpatient (CLI) | payer MEDICARE, SELFPAY ==
--- NOTE | 2024-06-25 13:54 | SUR.PREOP ---
Patient called in regards to [facility] capsule endoscopy. Went through pre operative questions and patient requested instructions be mailed to him. Informed patient to call us once he receives the instructions so we can go through those with him.
--- NOTE | 2024-07-03 14:18 | PC.NURSE ---
Spoke with patient and confirmed that he received his [facility] capsule endoscopy instructions. Instructions have been gone through and he states he has no questions at this time.
--- NOTE | 2024-07-09 07:13 | SUR.OPER ---
Patient brought to GI Lab. Instructions for patient undergoing Capsule Endoscopy reviewed with patient. Consent form signed. Sensor array applied to patient's abdomen and connected to recorded. Patient swallowed capsule with 16ozs of water infused with Simethicone. Patient instructed they may have clear liquids at 0825 this AM and eat or drink at 1025 this AM. Patient instructed to return to GI Lab at 1500 this afternoon for removal of recording device and to call [phone] or to return to the hospital if any nausea and vomiting or abdominal pain is experienced.
--- NOTE | 2024-07-09 14:33 | SUR.PHASEII ---
Patient returned to the GI Lab at 1430 for recorder box removal. Patient voiced no complaints. States they have understanding of instructions. Patient left ambulatory.
== END 2024-07-09 07:13 | disposition home or self-care (01) ==
PROVIDERS: PCP Nurse Practitioner Family; Referring Provider Nurse Practitioner Family; Visit Provider Internal Medicine Gastroenterology
PROC: 0DJ07ZZ Inspection of Upper Intestinal Tract, Via Natural or Artificial Opening (ICD-10-PCS; CPT 91110; principal; 2024-07-09 07:00)
DX: Z01.818 Encounter for other preprocedural examination (principal); K52.9 Noninfective gastroenteritis and colitis, unspecified; D50.9 Iron deficiency anemia, unspecified
CPT/HCPCS: 91110

== ENCOUNTER 2024-08-29 15:11 | Outpatient (CLI) | payer MEDICARE, SELFPAY ==
--- OUTSIDE RECORDS SUMMARY | 2024-08-29 15:37 | XMS_ITS | Clinical Summary ---
Author Organization [facility] Building C Address [address] [place] [address] Care Team Providers Care Die Maker Apprentice Name Role Phone JoshuaTom DO Unavailable [phone] Dharmesh Paul MD PhD Unavailable [phone] Yony Hill MD Unavailable [phone] Ramin Franco MD Unavailable + Ariana Macario NP Primary Care Provider [phone] Allergies Active Allergy Reactions Criticality Noted Date Comments Prochlorperazine Other (See comments) Low Pt unaware of any reaction to this medication Medications cholecalciferol (VITAMIN D3) 400 unit capsule take 1 by Oral route once 0 0 6 Active carvedilol (COREG) 25 mg tablet Take 1 tablet (25 mg total) by mouth 2 (two) times a day with meals. 60 tablet 1 8 Active telmisartan (MICARDIS) 80 mg tablet Take 0.5 tablets (40 mg total) by mouth daily 0 9 Active amLODIPine (NORVASC) 5 mg tablet TAKE 1 TABLET BY MOUTH EVERY DAY 90 tablet 3 9 Active ProAir HFA 90 mcg/actuation inhaler TAKE 2 PUFFS EVERY 6 HOURS NEEDED FOR COUGH, WHEEZE OR SHORTNESS OF BREATH 11/07/202 0 Active hydroCHLOROthia zide (HYDRODIURIL) 12.5 mg tablet Take 1 tablet (12.5 mg total) by mouth daily 1 Active zolpidem (AMBIEN) 10 mg tablet 1 Active HYDROcodone-veda taminophen (NORCO) 10-325 mg per tablet as needed [address] (PROTONIX) 40 mg EC tablet TAKE 1 TABLET BY MOUTH EVERY DAY 30 tablet 3 4 Active Xarelto 20 mg tablet Take 1 tablet (20 mg total) by mouth daily 90 tablet 1 4 Active dicyclomine (BENTYL) 10 mg capsule 4 Active colestipoL (COLESTID) 5 gram packet Take 1 packet (5 g total) by mouth daily Only takes half a packet a day. Active Active Problems Problem Noted Date Diagnosed Date Typical atrial flutter (CMS/HCC) 11/15/2019 S/P ablation of atrial fibrillation 11/15/2019 Chest discomfort 11/15/2019 Assessment & Plan (11/15/2019 3:26 PM CDT): I do not have a satisfactory explanation for the patient's chest discomfort. He certainly experienced pericarditis type chest discomfort immediately post ablation (as result of ablation in the coronary sinus). This resolved completely before his new chest discomfort, which is of different character, became evident. I believe it is unlikely that pericarditis could be present at this point, though it is not ruled out. He is not reporting pain with swallowing, eating, or drinking, and has not noticed hemoptysis/hematemesis, or melena, so I do not believe that esophageal injury is the cause. The patient is known to have a dilated aortic root, as well as risk factors for coronary disease. I recommended that he contact his deburr technician or to determine if additional evaluation is necessary. I would certainly prefer to have at least an ECG available at our disposal, and possibly an echocardiogram. The patient will follow-up with me in 2 months for an office visit and twelve- lead ECG. Other neutropenia (CMS/HCC) 11/09/2018 Thrombocytopenia, secondary 11/09/2018 Iron deficiency anemia due to chronic blood loss 09/29/2018 Iron deficiency anemia 09/28/2018 Persistent atrial fibrillation 03/06/2017 Assessment & Plan (06/18/2018 3:17 PM COMMUNICATION SPECIALIST): Patient is 1 month status post repeat ablation for persistent atrial fibrillation. He is back in atrial fibrillation. I recommended that he undergo cardioversion. It is possible that his current arrhythmia was mediated by inflammation from the procedure. He has been anticoagulated since the procedure. My office will make the appropriate arrangements. Assessment & Plan (03/06/2017 1:16 PM CDT): He is post ablation of his atrial fibrillation on 02/02/2016. In May of 2016 he was noted to have recurrence of his atrial fibrillation. He then underwent cardioversion on 06/24/2016. Today he presents but states he had an episode of atrial fibrillation that lasted approximately 12 hours last week. He states that during that time he had complaints of fatigue and shortness of breath. Have discussed the role of alcohol in how pertains to increase incidence of atrial fibrillation. He agrees to minimize. If he continues to have increased episodes of atrial fibrillation can consider antiarrhythmic drug therapy or repeat ablation. He can follow up in 6 months for an office visit and 12 lead EKG. Essential hypertension 03/06/2017 Assessment & Plan (06/18/2018 3:18 PM COMMUNICATION SPECIALIST): The patient's blood pressure has been elevated recently. I added low-dose amlodipine to his regimen. Assessment & Plan (09/18/2017 12:55 PM COMMUNICATION SPECIALIST): Risk factor for stroke. Remains anticoagulated. Assessment & Plan (03/06/2017 1:17 PM CDT): Risk factor for stroke. Remains anticoagulated.. Anticoagulation management encounter 03/06/2017 Assessment & Plan (11/15/2019 3:23 PM CDT): I recommended that the patient remain anticoagulated for thromboprophylaxis. He is presently tolerating Xarelto without difficulty. Assessment & Plan (06/18/2018 3:18 PM COMMUNICATION SPECIALIST): The patient has a [id number] score of 1 (annualized risk of stroke 1.2 %). I recommended that the patient remain anticoagulated for thromboprophylaxis. Assessment & Plan (09/18/2017 12:55 PM COMMUNICATION SPECIALIST): He remains anticoagulated on Xarelto 20 mg daily. He denies any issues of bleeding remains compliant with anticoagulation. It is recommended that he remain anticoagulated for thromboprophylaxis. Assessment & Plan (03/06/2017 1:13 PM CDT): He remains anticoagulated with Xarelto 20 mg daily. He denies any issues with bleeding or bruising. Other persistent atrial fibrillation 02/28/2017 Assessment & Plan (11/15/2019 3:23 PM CDT): Symptomatic persistent atrial fibrillation, 1 month post ablation. The patient states that he believes that he is in sinus rhythm the majority of the time. I have no way to confirm this at present. The patient should have a 12 lead ECG when the current SARS-Cov-19 pandemic allows from a safety standpoint. We will continue to monitor and follow closely, and manage new / recurrent arrhythmia expectantly. Assessment & Plan (09/18/2017 12:59 PM COMMUNICATION SPECIALIST): He is post ablation of his atrial fibrillation on 02/02/2016. In May of 2016 he was found to have recurrence of his atrial fibrillation. He then underwent cardioversion on 06/24/2016. He has recently been having more episodes of atrial fibrillation can last up to hours at a time. He does remain anticoagulated on beta-chiquita. At this time have discussed options for management with patient including antiarrhythmic drug therapy versus repeat ablation. Will also discuss with Dr. Shah. The patient is unsure what he would like to pursue at this time but he will call our office to pursue further management. Resolved Problems Problem Noted Date Diagnosed Date Resolved Date Paroxysmal atrial fibrillation ([facility]) 08/29/2019 10/17/2023 Overview (08/29/2019): Added automatically from request for surgery [id number] On amiodarone therapy 08/21/20192023 Encounters Date Type Department Care Team Description 08/26/2024 1:51 PM COMMUNICATION SPECIALIST - 08/26/2024 11:59 PM COMMUNICATION SPECIALIST Hospital Encounter [facility] Lab [address] [place] [phone] Discharge Disposition: Discharge to home or self care 08/23/[address] [facility] On[facility] [address] [place] [phone] Tisha Farley RN 08/22/2024 11:45 AM COMMUNICATION SPECIALIST Infusion [facility] at [address] [phone] Iron deficiency anemia due to chronic blood loss (Primary Dx) 08/22/2024 11:30 AM COMMUNICATION SPECIALIST Office Visit [facility] [address] [place] [phone] Tom Lewis, Iron deficiency anemia, unspecified iron deficiency anemia type; Iron deficiency anemia due to chronic blood loss 08/22/2024 10:45 AM COMMUNICATION SPECIALIST Lab [facility] at [address] [address] Iron deficiency anemia, unspecified iron deficiency anemia type; Iron deficiency anemia due to chronic blood loss 07/25/2024 8:30 AM COMMUNICATION SPECIALIST Infusion [facility] at [address] [phone] Iron deficiency anemia due to chronic blood loss (Primary Dx); Iron deficiency anemia, unspecified iron deficiency anemia type 07/25/2024 7:45 AM COMMUNICATION SPECIALIST Lab [facility] at [address] [address] Iron deficiency anemia, unspecified iron deficiency anemia type 07/18/2024 8:15 AM COMMUNICATION SPECIALIST Infusion [facility] at [address] [phone] Iron deficiency anemia due to chronic blood loss (Primary Dx); Iron deficiency anemia, unspecified iron deficiency anemia type 07/18/2024 7:30 AM COMMUNICATION SPECIALIST Lab [facility] at [address] [address] Iron deficiency anemia, unspecified iron deficiency anemia type 07/11/2024 8:00 AM COMMUNICATION SPECIALIST Infusion [facility] at [address] [place] [phone] Iron deficiency anemia due to chronic blood loss (Primary Dx); Iron deficiency anemia, unspecified iron deficiency anemia type 07/11/2024 7:30 AM COMMUNICATION SPECIALIST Lab [facility] at [address] [address] Iron deficiency anemia, unspecified iron deficiency anemia type 07/05/2024 2:45 PM COMMUNICATION SPECIALIST Office Visit [facility] [address] [place] [address] [place] [phone] Tom Lewis DO Iron deficiency anemia, unspecified iron deficiency anemia type (Primary Dx) 07/05/2024 2:00 PM COMMUNICATION SPECIALIST Lab [facility] at [address] [address] Iron deficiency anemia, unspecified iron deficiency anemia type 06/17/2024 Telephone [facility] [address] [place] [phone] Yony Hill MD Med Refill 05/31/2024 1:27 PM CDT - 05/31/2024 11:59 PM CDT Hospital Encounter [facility] Lab [address] [place] [phone] Iron deficiency anemia, unspecified iron deficiency anemia type Discharge Disposition: Discharge to home or self care 05/31/[address] [facility] [address] [place] [address] [place] [phone] Tisha Farley RN 05/30/2024 12:45 PM CDT Infusion [facility] at [address] [place] [phone] Iron deficiency anemia due to chronic blood loss (Primary Dx); Iron deficiency anemia, unspecified iron deficiency anemia type from Last 3 Months Immunizations Name Administration Dates Next Due Influenza, Unspecified 04/12/2023 Pfizer SARS-CoV-2 Monovalent Vaccination (12+ Yrs) PURPLE 11/04/2020,10/14/2020 Surgical History Surgery Date Site/Laterality Comments HERNIA REPAIR Bilateral UMBILICAL HERNIA REPAIR 07/31/2005 - 07/30/2006 COLONOSCOPY 07/31/2020 - 07/30/2021 Medical History Medical History Date Comments Hypertension Paroxysmal A-fib (CMS/HCC) (HCC) s/p multiple cardioversions, ablation 2015, 2017, 09/2019 PVC (premature ventricular contraction) Family History Medical History Relation Name Comments Heart disease Father Relation Name Status Comments Father Social History Tobacco Use Types Packs/Day Years Used Date Smoking Tobacco: Never Smokeless Tobacco: Never Tobacco Cessation:Counseling Given: Not Answered Alcohol Use Standard Drinks/Week Comments Yes 2 (1 standard drink = 0.6 oz pur e alcohol) AUDIT-C Answer Date Recorded Q1: How often do you have a drink containing alc ohol? 2-3 times a week 12/31/2020 Q2: How many drinks containi ng alcohol do you have on a typical day when you are drinking? 3 or 4 12/31/2020 Frequency of Binge Drinking Not on file 09/2020 PHQ-2 Answer Date Recorded PHQ-2 Score 0 03/23/2019 Sex and Gender Information Value Date Recorded Sex Assigned at Not on file Legal Sex Male 12:26 PM COMMUNICATION SPECIALIST Gender Identity Not on file Sexual Orientation Not on file Obstetrics History Last Filed Vital Signs Vital Sign Reading Time Taken Comments Blood Pressure 121/76 08/22/2024 1:37 PM COMMUNICATION SPECIALIST Pulse 76 08/22/2024 1:37 PM COMMUNICATION SPECIALIST Temperature 36.4 ??C (97.5 ??F) 08/22/2024 10:[address] Respiratory Rate 18 08/22/2024 1:37 PM COMMUNICATION SPECIALIST Oxygen Saturation 96% 08/22/2024 1:37 PM COMMUNICATION SPECIALIST Inhaled Oxygen Concentration - - Weight 155.6 kg (343 lb) 08/22/2024 10:50 AM COMMUNICATION SPECIALIST Height 193 cm (6' 4 ) 08/22/2024 10:50 AM COMMUNICATION SPECIALIST w shoes Body Mass Index 41.75 08/22/2024 10:50 AM COMMUNICATION SPECIALIST Plan of Treatment Health Maintenance Due Date Last Done Comments Hepatitis C Screening 1955 Prostate Cancer Screening-PSA 1957 Pneumococcal vaccine 65+ (1 of 2 - PCV) 1963 DTaP/Tdap/Td Vaccine (1 - Tdap) 1968 Hepatitis B Screening 1975 Zoster Vaccine (1 of 2) 1976 Depression Screening 03/27/2019 03/27/2018 Covid-19 Vaccine (3 - Pfizer risk series) 12/02/2020 11/04/2020, 10/14/2020 Fall Risk Assessment 10/12/2021 10/12/2020, 03/27/20 18 Well Visit 65+ 2022 Influenza Vaccine (#1) 2024 04/12/2023 Colon Cancer Screening-Colonoscopy 10/12/20302020 Colon Cancer Screening-CT Colonography Discontinued Colon Cancer Screening-DNA Stool Discontinued 10/13/19 Colon Cancer Screening-FIT Discontinued 10/12/2020 Colon Cancer Screening-Sigmoidoscopy Discontinued 09/28 Medical Devices Implanted Type Area Roll Cutting Operator Device Identifier Shelf Expiration Date Model / Serial / Lot [employer] [id number] Vascade 6/7fr Bioabsorbable Vascular System Compression Collagen - [id number] - [id number] Implanted:Qty: 1 on 09/30/2019 by José Antonio Shah MD at [facility] Collagen N/A: Vein [employer] 05/08/2021 [id number] 05U / [id number] 09A / [id number] 09A [employer] [id number] System 6-12fr Mvp Venous Closure Vascade - [id number] - [id number] Implanted:Qty: 1 on 09/30/2019 by José Antonio Shah MD at [facility] Collagen N/A: Vein [employer] 09/16/2021 800-612C- 10U / [id number] 17A / [id number] 17A [employer] [id number] System 6-12fr Mvp Venous Closure Vascade - [id number] - [id number] Implanted:Qty: 1 on 09/30/2019 by José Antonio Shah MD at [facility] Collagen N/A: Vein [employer] 09/16/2021 800-612C- 10U / [id number] 17A / [id number] 17A [employer] [id number] System 6-12fr Mvp Venous Closure Vascade - [id number] - [id number] Implanted:Qty: 1 on 09/30/2019 by José Antonio Shah MD at [facility] Collagen N/A: Vein [employer] 09/16/2021 800-612C- 10U / [id number] 17A / [id number] 17A Procedures Procedure Name Priority Date/Time Associated Diagnosis Comments RETICULOCYTES Routine 08/22/2024 10:12 AM COMMUNICATION SPECIALIST Iron deficiency anemia, unspecified iron deficiency anemia type DIFFERENTIAL AUTO Routine 08/22/2024 10: 12 AM COMMUNICATION SPECIALIST Iron deficiency anemia, unspecified iron deficiency anemia type FERRITIN Routine 08/22/2024 10:12 AM COMMUNICATION SPECIALIST Iron deficiency anemia, unspecified iron deficiency anemia type IRON PROFILE W/ IBC Routine 08/22/2024 1 0:12 AM COMMUNICATION SPECIALIST Iron deficiency anemia, unspecified iron deficiency anemia type CBC WITH AUTO DIFFERENTIAL Routine 08/22/2024 10:12 AM COMMUNICATION SPECIALIST Iron deficiency anemia, unspecified iron deficiency anemia type DIFFERENTIAL AUTO Routine 07/25/2024 7:3 5 AM COMMUNICATION SPECIALIST Iron deficiency anemia, unspecified iron deficiency anemia type CBC WITH AUTO DIFFERENTIAL Routine 07/25/2024 7:35 AM COMMUNICATION SPECIALIST Iron deficiency anemia, unspecified iron deficiency anemia type DIFFERENTIAL AUTO Routine 07/18/2024 7:1 2 AM COMMUNICATION SPECIALIST Iron deficiency anemia, unspecified iron deficiency anemia type CBC WITH AUTO DIFFERENTIAL Routine 07/18/2024 7:12 AM COMMUNICATION SPECIALIST Iron deficiency anemia, unspecified iron deficiency anemia type DIFFERENTIAL AUTO Routine 07/11/2024 7:3 5 AM COMMUNICATION SPECIALIST Iron deficiency anemia, unspecified iron deficiency anemia type ANTIBODY SCREEN Routine 07/11/2024 7:35 AM COMMUNICATION SPECIALIST Iron deficiency anemia, unspecified iron deficiency anemia type ABO/RH Routine 07/11/2024 7:35 AM COMMUNICATION SPECIALIST Iron deficiency anemia, unspecified iron deficiency anemia type TYPE AND SCREEN Routine 07/11/2024 7:35 AM COMMUNICATION SPECIALIST Iron deficiency anemia, unspecified iron deficiency anemia type CBC WITH AUTO DIFFERENTIAL Routine 07/11/2024 7:35 AM COMMUNICATION SPECIALIST Iron deficiency anemia, unspecified iron deficiency anemia type MANUAL DIFFERENTIAL Routine 07/05/2024 2 :01 PM COMMUNICATION SPECIALIST Iron deficiency anemia, unspecified iron deficiency anemia type DIFFERENTIAL AUTO Routine 07/05/2024 2:0 1 PM COMMUNICATION SPECIALIST Iron deficiency anemia, unspecified iron deficiency anemia type CBC WITH AUTO DIFFERENTIAL Routine 07/05/2024 2:01 PM COMMUNICATION SPECIALIST Iron deficiency anemia, unspecified iron deficiency anemia type FERRITIN Routine 07/05/2024 2:01 PM COMMUNICATION SPECIALIST Iron deficiency anemia, unspecified iron deficiency anemia type IRON PROFILE W/ IBC Routine 07/05/2024 2 :01 PM COMMUNICATION SPECIALIST Iron deficiency anemia, unspecified iron deficiency anemia type RETICULOCYTES Routine 07/05/2024 2:01 PM COMMUNICATION SPECIALIST Iron deficiency anemia, unspecified iron deficiency anemia type GUAIAC OCCULT BLOOD, FECAL, NOT FOR NEOPLASM SCREENING Routine 05/31/2024 2:20 PM CDT Iron deficiency anemia, unspecified iron deficiency anemia type COLONOSCOPY 10/12/2020 3:51 PM CDT from Last 3 Months or Most Recently Relevant to Health Maintenance Results * Differential, auto (08/22/2024 10:12 AM COMMUNICATION SPECIALIST) Neutrophil abs 2.8 1.5 - 6.5 K/cumm Comment:Testing performed by : [address] [address] Imm gran abs 0.0 0.0 - 0.1 K/cumm [facility] Comment:Testing performed by : [address] [address] Lymphocyte abs 0.9 0.8 - 3.3 K/cumm [facility] Comment:Testing performed by : [address] [address] Monocyte abs 0.5 0.2 - 0.8 K/cumm [facility] Comment:Testing performed by : [address] [address] Eosinophil abs 0.2 0.0 - 0.5 K/cumm [facility] Comment:Testing performed by : [address] [address] Basophil abs 0.0 0.0 - 0.1 K/cumm [facility] Comment:Testing performed by : [address] [address] Neutrophil pct 63.7 % [facility] Comment: Interpretive Data Percent cell count reference ranges are not reported, since discordance with absolute values may lead to misinterpretation of CBC data. Current Interpretive Data was last revised on 2017. Testing performed by: [address] [address] Imm gran pct 0.2 % [facility] Comment: Interpretive Data Percent cell count reference ranges are not reported, since discordance with absolute values may lead to misinterpretation of CBC data. Current Interpretive Data was last revised on 2017. Testing performed by: [address] [address] Lymphocyte pct 19.4 % [facility] Comment: Interpretive Data Percent cell count reference ranges are not reported, since discordance with absolute values may lead to misinterpretation of CBC data. Current Interpretive Data was last revised on 2017. Testing performed by: [address] [place]., [address] Monocyte pct 11.9 % [facility] Comment: Interpretive Data Percent cell count reference ranges are not reported, since discordance with absolute values may lead to misinterpretation of CBC data. Current Interpretive Data was last revised on 2017. Testing performed by: [address] [address] Eosinophil pct 4.1 % [facility] Comment: Interpretive Data Percent cell count reference ranges are not reported, since discordance with absolute values may lead to misinterpretation of CBC data. Current Interpretive Data was last revised on 2017. Testing performed by: [address] [address] Basophil pct 0.7 % [facility] Comment: Interpretive Data Percent cell count reference ranges are not reported, since discordance with absolute values may lead to misinterpretation of CBC data. Current Interpretive Data was last revised on 2017. Testing performed by: [address] [address] Blood 08/22/2024 10:1 2 AM COMMUNICATION SPECIALIST 08/22/2024 10:14 AM COMMUNICATION SPECIALIST Tom Lewis DO LAB BLOOD ORDERABLES Final R esult [facility] [address] [facility] Department [place] [address] * (ABNORMAL) Iron profile w/ IBC (08/22/2024 10:12 AM COMMUNICATION SPECIALIST) Iron 27(L) 50 - 150 mcg/dL Comment:Testing performed by : [address] [address] TIBC 463(H) 250 - 400 mcg/dL [facility] Comment:Testing performed by : [address] [address] Transferrin saturation 6(L) 20 - 50 % [facility] Comment:Testing performed by : [address] [address] Blood 08/22/2024 10:1 2 AM COMMUNICATION SPECIALIST 08/22/2024 11:41 AM COMMUNICATION SPECIALIST us Tom Lewis DO LAB BLOOD ORDERABLES Final R esult [facility] [address] [facility] Department [place] [address] * (ABNORMAL) CBC with auto differential (08/22/2024 10:12 AM COMMUNICATION SPECIALIST) Pathologist [facility] WBC 4.4 3.8 - 9.9 K/cumm Comment:Testing performed by : [address] [address] Hgb 9.3(L) 13.0 - 17.5 g/dL [facility] Comment:Testing performed by : [address] [address] Hct 32.7(L) 38.9 - 50.3 % [facility] Comment:Testing performed by : [address] [address] Plt 171 150 - 400 K/cumm [facility] Comment:Testing performed by : [address] [address] MPV 9.3 9.1 - 12.3 fL [facility] Comment:Testing performed by : [address] [address] RBC 4.92 4.30 - 5.80 M/cumm [facility] Comment:Testing performed by : [address] [address] MCV 66.5(L) 81.3 - 96.4 fL [facility] Comment:Testing performed by : [address] [address] MCH 18.9(L) 27.1 - 33.3 pg [facility] Comment:Testing performed by : [address] [address] MCHC 28.4(L) 32.3 - 35.7 g/dL [facility] Comment:Testing performed by : [address] [address] RDW CV 18.9(H) 11.1 - 14.9 % [facility] Comment:Testing performed by : [address] [address] RDW SD 44.3 35.7 - 48.1 fL [facility] Comment:Testing performed by : [address] [address] NRBC abs 0.00 0.00 - 0.01 K/cumm [facility] Comment:Testing performed by : [address] [address] Blood 08/22/2024 10:1 2 AM COMMUNICATION SPECIALIST 08/22/2024 10:14 AM COMMUNICATION SPECIALIST Tom Lewis LAB BLOOD ORDERABLES Final R esult Performing Organization Address [facility] de Phone Number HECTOR [address] [place] [address] * (ABNORMAL) Reticulocyte Count (08/22/2024 10:12 AM COMMUNICATION SPECIALIST) Retics, absolute 0.080 0.020 - 0.087 M/cumm Comment:Testing performed by : [address] [address] Retics 1.6 0.4 - 2.9 % [facility] Comment:Testing performed by : [address] [address] Reticulocyte Hgb 17.9(L) 30.5 - 38.0 pg [facility] Comment:Testing performed by : [address] [address] Blood 08/22/2024 10:1 2 AM COMMUNICATION SPECIALIST 08/22/2024 10:14 AM COMMUNICATION SPECIALIST Tom Lewis LAB BLOOD ORDERABLES Final R esult Performing Organization Address [facility] de Phone Number HECTOR [address] [place] [address] * (ABNORMAL) Ferritin (08/22/2024 10:12 AM COMMUNICATION SPECIALIST) Ferritin 15(L) 30 - 400 ng/mL Comment:Testing performed by : [address] [address] Blood 08/22/2024 10:1 2 AM COMMUNICATION SPECIALIST 08/22/2024 11:41 AM COMMUNICATION SPECIALIST Tom Lewis DO LAB BLOOD ORDERABLES Final R esult [facility] [address] [facility] Department [place] [address] * Differential, auto (07/25/2024 7:35 AM COMMUNICATION SPECIALIST) Pathologist [facility] Neutrophil abs 1.9 1.5 - 6.5 K/cumm Comment:Testing performed by : [address] [address] Imm gran abs 0.0 0.0 - 0.1 K/cumm HECTOR Comment:Testing performed by : [address] [address] Lymphocyte abs 0.8 0.8 - 3.3 K/cumm HECTOR Comment:Testing performed by : [address] [address] Monocyte abs 0.5 0.2 - 0.8 K/cumm [facility] Comment:Testing performed by : [address] [address] Eosinophil abs 0.1 0.0 - 0.5 K/cumm HECTOR Comment:Testing performed by : [address] [address] Basophil abs 0.0 0.0 - 0.1 K/cumm HECTOR Comment:Testing performed by : [address] [address] Neutrophil pct 55.6 % [facility] Comment: Interpretive Data Percent cell count reference ranges are not reported, since discordance with absolute values may lead to misinterpretation of CBC data. Current Interpretive Data was last revised on 2017. Testing performed by: [address] [address] Imm gran pct 0.3 % [facility] Comment: Interpretive Data Percent cell count reference ranges are not reported, since discordance with absolute values may lead to misinterpretation of CBC data. Current Interpretive Data was last revised on 2017. Testing performed by: [address] [address] Lymphocyte pct 24.0 % [facility] Comment: Interpretive Data Percent cell count reference ranges are not reported, since discordance with absolute values may lead to misinterpretation of CBC data. Current Interpretive Data was last revised on 2017. Testing performed by: [address] [address] Monocyte pct 15.0 % [facility] Comment: Interpretive Data Percent cell count reference ranges are not reported, since discordance with absolute values may lead to misinterpretation of CBC data. Current Interpretive Data was last revised on 2017. Testing performed by: [address] [address] Eosinophil pct 4.2 % [facility] Comment: Interpretive Data Percent cell count reference ranges are not reported, since discordance with absolute values may lead to misinterpretation of CBC data. Current Interpretive Data was last revised on 2017. Testing performed by: [address] [address] Basophil pct 0.9 % [facility] Comment: Interpretive Data Percent cell count reference ranges are not reported, since discordance with absolute values may lead to misinterpretation of CBC data. Current Interpretive Data was last revised on 2017. Testing performed by: [address] [address] Blood 07/25/2024 7:35 AM COMMUNICATION SPECIALIST 07/25/2024 7:44 AM COMMUNICATION SPECIALIST us Tom Lewis DO LAB BLOOD ORDERABLES Final R esult HECTOR [address] [facility] Department [place] [address] * (ABNORMAL) CBC with auto differential (07/25/2024 7:35 AM COMMUNICATION SPECIALIST) [facility] WBC 3.3(L) 3.8 - 9.9 K/cumm Comment:Testing performed by : [address] [address] Hgb 8.6(L) 13.0 - 17.5 g/dL HECTOR Comment:Testing performed by : [address] [address] Hct 30.5(L) 38.9 - 50.3 % HECTOR Comment:Testing performed by : [address] [address] Plt 155 150 - 400 K/cumm HECTOR Comment:Testing performed by : [address] [address] MPV 9.2 9.1 - 12.3 fL HECTOR Comment:Testing performed by : [address] [address] RBC 4.51 4.30 - 5.80 M/cumm HECTOR Comment:Testing performed by : [address] [address] MCV 67.6(L) 81.3 - 96.4 fL HECTOR Comment:Testing performed by : [address] [address] MCH 19.1(L) 27.1 - 33.3 pg HECTOR Comment:Testing performed by : [address] [address] MCHC 28.2(L) 32.3 - 35.7 g/dL HECTOR Comment:Testing performed by : [address] [address] RDW CV 19.6(H) 11.1 - 14.9 % HECTOR Comment:Testing performed by : [address] [address] RDW SD 47.2 35.7 - 48.1 fL HECTOR Comment:Testing performed by : [address] [address] NRBC abs 0.00 0.00 - 0.01 K/cumm HECTOR Comment:Testing performed by : [address] [address] Blood 07/25/2024 7:35 AM COMMUNICATION SPECIALIST 07/25/2024 7:44 AM COMMUNICATION SPECIALIST Tom Lewis DO LAB BLOOD ORDERABLES Final R esult HECTOR 0020 [facility] Department [place] [address] * Differential, auto (07/18/2024 7:12 AM COMMUNICATION SPECIALIST) Pathologist [facility] Neutrophil abs 2.6 1.5 - 6.5 K/cumm Comment:Testing performed by : [address] [address] Imm gran abs 0.0 0.0 - 0.1 K/cumm HECTOR Comment:Testing performed by : [address] [address] Lymphocyte abs 0.8 0.8 - 3.3 K/cumm HECTOR Comment:Testing performed by : [address] [address] Monocyte abs 0.5 0.2 - 0.8 K/cumm HECTOR Comment:Testing performed by : [address] [address] Eosinophil abs 0.2 0.0 - 0.5 K/cumm HECTOR Comment:Testing performed by : [address] [address] Basophil abs 0.0 0.0 - 0.1 K/cumm HECTOR Comment:Testing performed by : [address] [address] Neutrophil pct 63.4 % HECTOR Comment: Interpretive Data Percent cell count reference ranges are not reported, since discordance with absolute values may lead to misinterpretation of CBC data. Current Interpretive Data was last revised on 2017. Testing performed by: [address] [address] Imm gran pct 0.7 % [facility] Comment: Interpretive Data Percent cell count reference ranges are not reported, since discordance with absolute values may lead to misinterpretation of CBC data. Current Interpretive Data was last revised on 2017. Testing performed by: [address] [address] Lymphocyte pct 19.3 % [facility] Comment: Interpretive Data Percent cell count reference ranges are not reported, since discordance with absolute values may lead to misinterpretation of CBC data. Current Interpretive Data was last revised on 2017. Testing performed by: [address] [address] Monocyte pct 12.0 % [facility] Comment: Interpretive Data Percent cell count reference ranges are not reported, since discordance with absolute values may lead to misinterpretation of CBC data. Current Interpretive Data was last revised on 2017. Testing performed by: [address] [address] Eosinophil pct 3.9 % [facility] Comment: Interpretive Data Percent cell count reference ranges are not reported, since discordance with absolute values may lead to misinterpretation of CBC data. Current Interpretive Data was last revised on 2017. Testing performed by: [address] [address] Basophil pct 0.7 % [facility] Comment: Interpretive Data Percent cell count reference ranges are not reported, since discordance with absolute values may lead to misinterpretation of CBC data. Current Interpretive Data was last revised on 2017. Testing performed by: [address] [address] Blood 07/18/2024 7:12 AM COMMUNICATION SPECIALIST 07/18/2024 7:30 AM COMMUNICATION SPECIALIST us Tom Lewis DO LAB BLOOD ORDERABLES Final R esult HECTOR 23[address] [facility] Department of Laboratories [place], [place] [id number] * (ABNORMAL) CBC with auto differential (07/18/2024 7:12 AM COMMUNICATION SPECIALIST) [facility] WBC 4.1 3.8 - 9.9 K/cumm Comment:Testing performed by : [address] [address] Hgb 8.6(L) 13.0 - 17.5 g/dL HECTOR Comment:Testing performed by : [address], [address] Hct 30.9(L) 38.9 - 50.3 % HECTOR Comment:Testing performed by : [address], [address] Plt 204 150 - 400 K/cumm HECTOR Comment:Testing performed by : [address] [address] MPV 10.1 9.1 - 12.3 fL HECTOR Comment:Testing performed by : [address], [address] RBC 4.56 4.30 - 5.80 M/cumm HECTOR Comment:Testing performed by : [address] [address] MCV 67.8(L) 81.3 - 96.4 fL HECTOR Comment:Testing performed by : [address] [address] MCH 18.9(L) 27.1 - 33.3 pg HECTOR Comment:Testing performed by : [address], [address] MCHC 27.8(L) 32.3 - 35.7 g/dL HECTOR Comment:Testing performed by : [address], [address] RDW CV 18.9(H) 11.1 - 14.9 % HECTOR Comment:Testing performed by : [address] [address] RDW SD 45.7 35.7 - 48.1 fL HECTOR Comment:Testing performed by : [address], [address] NRBC abs 0.00 0.00 - 0.01 K/cumm HECTOR Comment:Testing performed by : [address] [address] Blood 07/18/2024 7:12 AM COMMUNICATION SPECIALIST 07/18/2024 7:30 AM COMMUNICATION SPECIALIST Tom Lewis DO LAB BLOOD ORDERABLES Final R esult HECTOR 2150 [facility] Department [place] [address] * (ABNORMAL) Differential, auto (07/11/2024 7:35 AM COMMUNICATION SPECIALIST) Neutrophil abs 1.4(L) 1.5 - 6.5 K/cumm Comment:Testing performed by : [address] [address] Imm gran abs 0.0 0.0 - 0.1 K/cumm HECTOR Comment:Testing performed by : [address] [address] Lymphocyte abs 0.7(L) 0.8 - 3.3 K/cumm HECTOR Comment:Testing performed by : [address] [address] Monocyte abs 0.4 0.2 - 0.8 K/cumm HECTOR Comment:Testing performed by : [address] [address] Eosinophil abs 0.1 0.0 - 0.5 K/cumm HECTOR Comment:Testing performed by : [address] [address] Basophil abs 0.0 0.0 - 0.1 K/cumm HECTOR Comment:Testing performed by : [address] [address] Neutrophil pct 53.0 % HECTOR Comment: Interpretive Data Percent cell count reference ranges are not reported, since discordance with absolute values may lead to misinterpretation of CBC data. Current Interpretive Data was last revised on 2017. Testing performed by: [address] [address] Imm gran pct 0.4 % [facility] Comment: Interpretive Data Percent cell count reference ranges are not reported, since discordance with absolute values may lead to misinterpretation of CBC data. Current Interpretive Data was last revised on 2017. Testing performed by: [address] [address] Lymphocyte pct 26.3 % [facility] Comment: Interpretive Data Percent cell count reference ranges are not reported, since discordance with absolute values may lead to misinterpretation of CBC data. Current Interpretive Data was last revised on 2017. Testing performed by: [address] [address] Monocyte pct 14.3 % [facility] Comment: Interpretive Data Percent cell count reference ranges are not reported, since discordance with absolute values may lead to misinterpretation of CBC data. Current Interpretive Data was last revised on 2017. Testing performed by: [address] [address] Eosinophil pct 4.9 % [facility] Comment: Interpretive Data Percent cell count reference ranges are not reported, since discordance with absolute values may lead to misinterpretation of CBC data. Current Interpretive Data was last revised on 2017. Testing performed by: [address] [address] Basophil pct 1.1 % [facility] Comment: Interpretive Data Percent cell count reference ranges are not reported, since discordance with absolute values may lead to misinterpretation of CBC data. Current Interpretive Data was last revised on 2017. Testing performed by: [address] [address] Blood 07/11/2024 7:35 AM COMMUNICATION SPECIALIST 07/11/2024 7:46 AM COMMUNICATION SPECIALIST us Tom Lewis DO LAB BLOOD ORDERABLES Final R esult HECTOR 7[address] [facility] Department of Laboratories [place], [place] [id number] * (ABNORMAL) CBC with auto differential (07/11/2024 7:35 AM COMMUNICATION SPECIALIST) [facility] WBC 2.7(L) 3.8 - 9.9 K/cumm Comment:Testing performed by : [address] [address] Hgb 8.4(L) 13.0 - 17.5 g/dL HECTOR Comment:Testing performed by : [address], [address] Hct 29.3(L) 38.9 - 50.3 % HECTOR Comment:Testing performed by : [address], [address] Plt 168 150 - 400 K/cumm HECTOR Comment:Testing performed by : [address], [address] MPV 9.6 9.1 - 12.3 fL HECTOR Comment:Testing performed by : [address], [address] RBC 4.36 4.30 - 5.80 M/cumm HECTOR Comment:Testing performed by : [address] [address] MCV 67.2(L) 81.3 - 96.4 fL HECTOR Comment:Testing performed by : [address] [address] MCH 19.3(L) 27.1 - 33.3 pg HECTOR Comment:Testing performed by : [address], [address] MCHC 28.7(L) 32.3 - 35.7 g/dL HECTOR Comment:Testing performed by : [address], [address] RDW CV 18.1(H) 11.1 - 14.9 % HECTOR Comment:Testing performed by : [address], [address] RDW SD 43.8 35.7 - 48.1 fL HECTOR Comment:Testing performed by : [address], [address] NRBC abs 0.00 0.00 - 0.01 K/cumm [facility] Comment:Testing performed by : [address] [address] Blood 07/11/2024 7:35 AM COMMUNICATION SPECIALIST 07/11/2024 7:46 AM COMMUNICATION SPECIALIST Tom Lewis DO LAB BLOOD ORDERABLES Final R esult Performing Organization Address [facility] Co de Phone Number [address] [place] [address] * ABO/Rh (07/11/2024 7:35 AM COMMUNICATION SPECIALIST) ABO/Rh AB Positive Comment:Testing performed by : [address], [address] Blood 07/11/2024 7:35 AM COMMUNICATION SPECIALIST 07/11/2024 9:39 AM COMMUNICATION SPECIALIST Narrative HECTOR - 07/11/2024 10:40 AM COMMUNICATION SPECIALIST Has the patient had Daratumumab or Isatuximab in the past 6 months?->No Tom Lewis Ecal BLOOD BANK TEST ORDERABL ES Final Result Performing Organization Address [facility] de Phone Number [address] [address] * Antibody screen (07/11/2024 7:35 AM COMMUNICATION SPECIALIST) Jose, indirect, Gel Interpretation Negative ABSC Comment:Testing performed by : [address] [address] Blood 07/11/2024 7:35 AM COMMUNICATION SPECIALIST 07/11/2024 9:39 AM COMMUNICATION SPECIALIST Narrative HECTOR - 07/11/2024 10:40 AM COMMUNICATION SPECIALIST Has the patient had Daratumumab or Isatuximab in the past 6 months?->No Tom Lewis Ecal BLOOD BANK TEST ORDERABL ES Final Result Performing Organization Address [facility] de Phone Number HECTOR 16[address] [facility] Department [place] [address] * Differential, auto (07/05/2024 2:01 PM COMMUNICATION SPECIALIST) Neutrophil abs 2.0 1.5 - 6.5 K/cumm Comment:Testing performed by : [address] [address] Imm gran abs 0.0 0.0 - 0.1 K/cumm HECTOR Comment:Testing performed by : [address] [address] Lymphocyte abs 0.8 0.8 - 3.3 K/cumm HECTOR Comment:Testing performed by : [address] [address] Monocyte abs 0.4 0.2 - 0.8 K/cumm HECTOR Comment:Testing performed by : [address] [address] Eosinophil abs 0.1 0.0 - 0.5 K/cumm HECTOR Comment:Testing performed by : [address] [address] Basophil abs 0.0 0.0 - 0.1 K/cumm HECTOR Comment:Testing performed by : [address] [address] Neutrophil pct 60.3 % HECTOR Comment: Interpretive Data Percent cell count reference ranges are not reported, since discordance with absolute values may lead to misinterpretation of CBC data. Current Interpretive Data was last revised on 2017. Testing performed by: [address] [address] Imm gran pct 0.6 % HECTOR Comment: Interpretive Data Percent cell count reference ranges are not reported, since discordance with absolute values may lead to misinterpretation of CBC data. Current Interpretive Data was last revised on 2017. Testing performed by: [address] [address] Lymphocyte pct 22.7 % HECTOR Comment: Interpretive Data Percent cell count reference ranges are not reported, since discordance with absolute values may lead to misinterpretation of CBC data. Current Interpretive Data was last revised on 2017. Testing performed by: [address] [address] Monocyte pct 12.8 % HECTOR Comment: Interpretive Data Percent cell count reference ranges are not reported, since discordance with absolute values may lead to misinterpretation of CBC data. Current Interpretive Data was last revised on 2017. Testing performed by: [address] [address] Eosinophil pct 2.7 % HECTRO Comment: Interpretive Data Percent cell count reference ranges are not reported, since discordance with absolute values may lead to misinterpretation of CBC data. Current Interpretive Data was last revised on 2017. Testing performed by: [address] [address] Basophil pct 0.9 % HECTOR Comment: Interpretive Data Percent cell count reference ranges are not reported, since discordance with absolute values may lead to misinterpretation of CBC data. Current Interpretive Data was last revised on 2017. Testing performed by: [address] [address] Blood 07/05/2024 2:01 PM COMMUNICATION SPECIALIST 07/05/2024 2:03 PM COMMUNICATION SPECIALIST us Tom Lewis DO LAB BLOOD ORDERABLES Final R esult [facility] [address] [facility] Department [place] [address] * (ABNORMAL) Iron profile w/ IBC (07/05/2024 2:01 PM COMMUNICATION SPECIALIST) Iron 15(L) 50 - 150 mcg/dL Comment:Testing performed by : [address] [address] TIBC 461(H) 250 - 400 mcg/dL HECTOR Comment:Testing performed by : [address] [address] Transferrin saturation 3(L) 20 - 50 % HECTOR Comment:Testing performed by : [address] [address] Blood 07/05/2024 2:01 PM COMMUNICATION SPECIALIST 07/05/2024 4:18 PM COMMUNICATION SPECIALIST us Tom Lewis DO LAB BLOOD ORDERABLES Final R esult HECTOR 45[address] [facility] Department [place] [address] * (ABNORMAL) CBC with auto differential (07/05/2024 2:01 PM COMMUNICATION SPECIALIST) WBC 3.4(L) 3.8 - 9.9 K/cumm Comment:Testing performed by : [address] [address] Hgb 8.7(L) 13.0 - 17.5 g/dL HECTOR Comment:Testing performed by : [address] [address] Hct 30.4(L) 38.9 - 50.3 % HECTOR Comment:Testing performed by : [address] [address] Plt 181 150 - 400 K/cumm HECTOR Comment:Testing performed by : [address] [address] MPV 9.0(L) 9.1 - 12.3 fL HECTOR Comment:Testing performed by : [address] [address] RBC 4.48 4.30 - 5.80 M/cumm HECTOR Comment:Testing performed by : [address] [address] MCV 67.9(L) 81.3 - 96.4 fL HECTOR Comment:Testing performed by : [address] [address] MCH 19.4(L) 27.1 - 33.3 pg HECTOR Comment:Testing performed by : [address] [address] MCHC 28.6(L) 32.3 - 35.7 g/dL HECTOR DUNCAN Comment:Testing performed by : [address] [address] RDW CV 18.4(H) 11.1 - 14.9 % HECTOR DUNCAN Comment:Testing performed by : [address] [address] RDW SD 44.9 35.7 - 48.1 fL HECTOR DUNCAN Comment:Testing performed by : [address] [address] NRBC abs 0.00 0.00 - 0.01 K/cumm HECTOR Comment:Testing performed by : [address] [address] Blood 07/05/2024 2:01 PM COMMUNICATION SPECIALIST 07/05/2024 2:03 PM COMMUNICATION SPECIALIST Tom Lewis DO LAB BLOOD ORDERABLES Final R esult HECTOR 64[address] [facility] Department [place] [address] * Manual Differential (07/05/2024 2:01 PM COMMUNICATION SPECIALIST) Differential Auto Comment:Testing performed by : [address] [address] Neutrophil abs 2.0 1.5 - 6.5 K/cumm HECTOR Comment:Testing performed by : [address] [address] Imm gran abs 0.0 0.0 - 0.1 K/cumm HECTOR Comment:Testing performed by : [address] [address] Lymphocyte abs 0.8 0.8 - 3.3 K/cumm HECTOR Comment:Testing performed by : [address] [address] Monocyte abs 0.4 0.2 - 0.8 K/cumm HECTOR Comment:Testing performed by : [address] [address] Eosinophil abs 0.1 0.0 - 0.5 K/cumm [facility] Comment:Testing performed by : [address] [address] Basophil abs 0.0 0.0 - 0.1 K/cumm [facility] Comment:Testing performed by : [address] [address] Neutrophil pct 60.3 % [facility] Comment: Interpretive Data Percent cell count reference ranges are not reported, since discordance with absolute values may lead to misinterpretation of CBC data. Current Interpretive Data was last revised on 2017. Testing performed by: [address] [address] Imm gran pct 0.6 % [facility] Comment: Interpretive Data Percent cell count reference ranges are not reported, since discordance with absolute values may lead to misinterpretation of CBC data. Current Interpretive Data was last revised on 2017. Testing performed by: [address] [address] Lymphocyte pct 22.7 % [facility] Comment: Interpretive Data Percent cell count reference ranges are not reported, since discordance with absolute values may lead to misinterpretation of CBC data. Current Interpretive Data was last revised on 2017. Testing performed by: [address] [address] Monocyte pct 12.8 % [facility] Comment: Interpretive Data Percent cell count reference ranges are not reported, since discordance with absolute values may lead to misinterpretation of CBC data. Current Interpretive Data was last revised on 2017. Testing performed by: [address] [address] Eosinophil pct 2.7 % [facility] Comment: Interpretive Data Percent cell count reference ranges are not reported, since discordance with absolute values may lead to misinterpretation of CBC data. Current Interpretive Data was last revised on 2017. Testing performed by: [address] [address] Basophil pct 0.9 % [facility] Comment: Interpretive Data Percent cell count reference ranges are not reported, since discordance with absolute values may lead to misinterpretation of CBC data. Current Interpretive Data was last revised on 2017. Testing performed by: [address] [address] RBC morphology Consistent with RBC Indicies HECTOR DUNCAN Comment:Testing performed by : [address] [address] Blood 07/05/2024 2:01 PM COMMUNICATION SPECIALIST 07/05/2024 2:03 PM COMMUNICATION SPECIALIST Tom Navarrete Joshua DO LAB BLOOD ORDERABLES Final R esult Performing Organization Address [facility] Co de Phone Number HECTOR [facility] [place] [address] * (ABNORMAL) Reticulocyte Count (07/05/2024 2:01 PM COMMUNICATION SPECIALIST) Retics, absolute 0.082 0.020 - 0.087 M/cumm Comment:Testing performed by : [address] [address] Retics 1.8 0.4 - 2.9 % HECTOR DUNCAN Comment:Testing performed by : [address] [address] Reticulocyte Hgb 18.2(L) 30.5 - 38.0 pg HECTOR DUNCAN Comment:Testing performed by : [address] [address] Blood 07/05/2024 2:01 PM COMMUNICATION SPECIALIST 07/05/2024 2:03 PM COMMUNICATION SPECIALIST Tom CamejoMatt Joshua DO LAB BLOOD ORDERABLES Final R esult Performing Organization Address [facility] Co de Phone Number HECTOR [address] [place] [address] * (ABNORMAL) Ferritin (07/05/2024 2:01 PM COMMUNICATION SPECIALIST) Ferritin 12(L) 30 - 400 ng/mL Comment:Testing performed by : [address] [address] Blood 07/05/2024 2:01 PM COMMUNICATION SPECIALIST 07/05/2024 4:18 PM COMMUNICATION SPECIALIST Tom Lewis DO LAB BLOOD ORDERABLES Final R esult Performing Organization Address [facility] Co de Phone Number SHAJI[address] [address] * (ABNORMAL) Guaiac occult blood, fecal, not for neoplasm screening (05/31/2024 2:20 PM CDT) Guaiac occult blood, fecal Positive(A ) Negative Comment:Testing performed by : [facility], [address] [place] [address]., [address] Stool 05/31/2024 2:20 PM CDT 05/31/2024 3:51 PM CDT Tom Lewis DO LAB BODY FLUIDS AND STOOLS O RDERABLES Final Result Performing Organization Address [facility] de Phone Number SHAJI[address] [place] [address] * COLONOSCOPY (10/12/2020 3:51 PM CDT) Anatomical Region Laterality Modality Other Narrative Procedure Note Dharmesh Paul MD PhD - 10/12/2020 3:51 PM CDT ENDOSCOPY LAB Patient Name: Darian Sheffield Procedure Date: 10/12/2020 3:51 PM Date of : 1955 Admit Type: Outpatient Age: 65 Gender: Male Attending MD: Dharmesh Paul MD,PHD Room: [facility] ENDOSCOPY ROOM 03 Note Status: Finalized Procedure: Colonoscopy Indications: Iron deficiency anemia Providers: Dharmesh Paul MD, PHD Referring MD: Julio Lockhart.N.PMatt Medicines: Monitored Anesthesia Care Complications: No immediate complications. Estimated Blood Loss: Estimated blood loss: none. Procedure: Pre-Anesthesia Assessment: - Immediately prior to administration ofmedications, the patient was re-assessed for adequacy to receive sedatives. The benefits, risks and alternatives of theprocedure and sedation were discussed and informed consentwas obtained. All questions were answered. Please referto the signed informed consent document in the medical record. The scope was passed under direct vision.The [id number] was introduced through the anusand advanced to the terminal ileum. The colonoscopy was performed with difficulty due to a redundant colon. Successful completion of the procedure was aided by ColoWrap and water immersion. The patient tolerated the procedure well. The quality of the bowel preparation was excellent. The quality of the bowel preparation was evaluated using the BBPS (BostonBowel Preparation Scale) with scores of: Right Colon = 3, Transverse Colon = 3 and Left Colon = 3 (entiremucosa seen well with no residual staining, smallfragments of stool or opaque liquid). The total BBPS score equals 9. The bowel preparation used was SUPREP via split dose instruction. Bowel prep was administered using a split dose. Findings: The perianal and digital rectal examinations were normal. The terminal ileum appeared normal. A 25 mm polyp was found in the cecum. The polyp was Parisclassification Is (protruding, sessile). Area was successfully injected with 8 mLOrise gel for a lift polypectomy. The polyp was removed with a piecemeal technique using a hot snare. Resection and retrieval were complete.To close after polypectomy, three hemostatic clips were successfullyplaced (MR conditional). A 25 mm polyp was found in the ascending colon. The polyp was Mickie classification Is (protruding, sessile). Area was successfullyinjected with 5 mL Orise gel for a lift polypectomy. The polyp was removedwith a piecemeal technique using a hot snare. Resection and retrieval were complete. To close after polypectomy, two hemostatic clips were successfully placed (MR conditional). A few small and large-mouthed diverticula were found in the sigmoid colon. The exam was otherwise without abnormality on direct and retroflexion views. Impression: - The examined portion of the ileum was normal. - One 25 mm polyp in the cecum, removed piecemeal using a hot snare. Resected and retrieved.Injected. Clips (MR conditional) were placed. - One 25 mm polyp in the ascending colon, removed piecemeal using a hot snare. Resected andretrieved. Injected. Clips (MR conditional) were placed. - Diverticulosis in the sigmoid colon. - The examination was otherwise normal on directand retroflexion views. Recommendation: - Await pathology results. - Repeat colonoscopy in 6 months for surveillance after piecemeal polypectomy and for surveillancebased on pathology results. - In the unusual situation that you developabdominal pain, bleeding, or other significant problems inthe days following this procedure, please call gene at [phone] or [phone] to speak to my tutoring assistant. After hours and weekends, please call [phone] and ask for the GI fellow lead radiation therapist.Please tell them that Dr. Paul did your procedure and that you were instructed to have the fellow call me orthe physician covering for me to discuss yourcondition. If you have an urgent problem, please go thenearest emergency room and have the ER doctor call gene during the day or the GI fellow after hours and weekends. Attending Participation: I personally performed the entire procedure. Electronically signed by Dharmesh Paul MD. Dharmesh Paul MD, PHD 10/12/2020 4:42:00 PM Number of Addenda: 0 Note Initiated On: 10/12/2020 3:51 PM Dharmesh Paul MD PhD ENDOSCOPY PROCEDURES Denita l Result from Last 3 Months or Most Recently Relevant to Health Maintenance Insurance [facility] MEDIC[facility] Address: [address] [address] MEDICARE SOL[employer] [facility] MEDICARE Address: [address] [address] [place] [address] Advance Directives For more information, please contact: [phone] * Full Code (Latest Code Status on File) Date Activated Date Inactivated Comments 10/12/2020 2:15 PM 10/12/2020 9:37 PM * Full Code Date Activated Date Inactivated Comments 05/02/2018 5:10 PM 05/03/2018 3:03 PM 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 Relationship Specialty Start Date End Date Ariana Macario NP [address] [facility] [address] [place] [address] PCP - General Nurse Practitioner 07/05/24 Tom Lewis DO [address] [facility] MEDICAL ONCOLOGY, [facility] [address] [place] [address] Medical Oncologist/Hematologi Hematology and Oncology 08/26/20 Dharmesh Paul MD PhD [address] [place] [address] Referring Physician Gastroenterology 12/31/20 Yony Hill MD [address] [facility] [address] [place] [address] Consulting Physician Cardiology 04/14/22 Ramin Franco MD [address] [facility] [address] [place] [address] Referring Physician Gastroenterology 06/03/24
--- OUTSIDE RECORDS SUMMARY | 2024-08-29 15:37 | XMS_ITS | Encounter Summary ---
Author Organization [facility] Address [address] [address] Care Team Providers Care Commodity Director Name Role Phone No, Physician Primary Care Provider [phone] Jonathan QURESHI NP, Merlin Larson Primary Care Provider Jonathan QURESHI NP, Merlin Larson Primary Care Provider Tom Lewis DO Unavailable [phone] Toro Henriquez MD Primary Care Provider [phone] Dharmesh Paul MD PhD Unavailable [phone] Yony Hill MD Unavailable [phone] Gabo Vance MD Primary Care Provider [phone] Ramin Franco MD Unavailable + Ariana Macario NP Primary Care Provider [phone] Encounter Details Date Type Department Care Team (Late st Contact Info) Description 07/28/2016 Orders Only Arrhythmia Center Provider, MD Murali [address] [place] [id number] Social History Tobacco Use Types Packs/Day Years Used Date Smoking Tobacco: Never Assessed Alcohol Use Standard Drinks/Week Comments Yes 0 (1 standard drink = 0.6 oz pur e alcohol) Sex and Gender Information Value Date Recorded Sex Assigned at Not on file 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 us Historical Provider [facility] NIKOLAY JAQUEZ Final Result documented in this encounter Visit Diagnoses Not on filedocumented in this encounter Care Teams Commodity Director Relationship Specialty Start Date End Date No, Physician PCP - General 02/06/17 02/13/17 Merlin Castillo III DIRECTOR STRATEGIC ACCOUNT MANAGEMENT PCP - General Family Practice 02/14/17 09/24/18 Merlin Castillo III DIRECTOR STRATEGIC ACCOUNT MANAGEMENT PCP - General Family Practice 09/25/18 12/30/20 Toro Henriquez MD [address] [facility] [address] [place] [address] PCP - General Internal Medicine 12/31/20 06/14/23 Gabo Vance MD [address] [facility] [address] [place] [address] PCP - General Family Practice 06/15/23 07/04/24 Ariana Macario NP [address] [facility] [address] [place] [address] PCP - General Nurse Practitioner 07/05/24 Tom Lewis DO [address] [place] [address] MEDICAL ONCOLOGY, [facility] [address] [place] [address] Medical Oncologist/Hematologi Hematology and Oncology 08/26/20 Dharmesh Paul MD PhD [address] [place] [address] Referring Physician Gastroenterology 12/31/20 Yony Hill MD [address] [facility] [address] [place] [address] Consulting Physician Cardiology 04/14/22 Ramin Franco MD [address] [facility] [address] [place] [address] Referring Physician Gastroenterology 06/03/24 documented as of this encounter
--- OUTSIDE RECORDS SUMMARY | 2024-08-29 15:37 | XMS_ITS | Referral Summary ---
[facility] Address [address] [place] [address] Care Team Providers Care Publicity Manager Name Role Phone JoshuaTom DO Unavailable [phone] Dharmesh Paul MD PhD Unavailable [phone] Yony Hill MD Unavailable Ramin Franco MD Unavailable + Ariana Macario NP Primary Care Provider [phone] Encounters Date Type Department Care Team Description 08/26/2024 1:51 PM VETERINARY SURGEON - 08/26/2024 11:59 PM VETERINARY SURGEON Hospital Encounter [facility] Lab [address] [place] [id number] Discharge Disposition: Discharge to home or self care 08/23/2024 Telephone [facility] Oncology [address] [place] [phone] Tisha Farley RN 08/22/2024 11:45 AM VETERINARY SURGEON Infusion [facility] at [address] [phone] Iron deficiency anemia due to chronic blood loss (Primary Dx) 08/22/2024 10:45 AM VETERINARY SURGEON Lab [address] [address] Iron deficiency anemia, unspecified iron deficiency anemia type; Iron deficiency anemia due to chronic blood loss 08/22/2024 11:30 AM VETERINARY SURGEON Office Visit [facility]cology [address] [place] [phone] Tom Lewis DO Iron deficiency anemia, unspecified iron deficiency anemia type; Iron deficiency anemia due to chronic blood loss 07/25/2024 7:45 AM VETERINARY SURGEON Lab [facility] at [address] [address] Iron deficiency anemia, unspecified iron deficiency anemia type 07/25/2024 8:30 AM VETERINARY SURGEON Infusion [facility] at [address] [phone] Iron deficiency anemia due to chronic blood loss (Primary Dx); Iron deficiency anemia, unspecified iron deficiency anemia type 07/18/2024 7:30 AM VETERINARY SURGEON Lab [facility] at [address] [address] Iron deficiency anemia, unspecified iron deficiency anemia type 07/18/2024 8:15 AM VETERINARY SURGEON Infusion [facility] at [address] [address] Iron deficiency anemia due to chronic blood loss (Primary Dx); Iron deficiency anemia, unspecified iron deficiency anemia type 07/11/2024 7:30 AM VETERINARY SURGEON Lab [facility] at [address] [address] Iron deficiency anemia, unspecified iron deficiency anemia type 07/11/2024 8:00 AM VETERINARY SURGEON Infusion [facility] at [address] [phone] Iron deficiency anemia due to chronic blood loss (Primary Dx); Iron deficiency anemia, unspecified iron deficiency anemia type 07/05/2024 2:00 PM VETERINARY SURGEON Lab [facility] at [address] [address] Iron deficiency anemia, unspecified iron deficiency anemia type 07/05/2024 2:45 PM VETERINARY SURGEON Office Visit [facility] On[facility] [address] [place] [phone] Tom Lewis DO Iron deficiency anemia, unspecified iron deficiency anemia type (Primary Dx) 06/17/2024 Telephone [facility] Cardiology [address] [place] [address] Yony Hill MD Med Refill 05/31/2024 Telephone [facility] [address] [place] [phone] Tisha Farley RN 05/31/2024 1:27 PM CDT - 05/31/2024 11:59 PM CDT Hospital Encounter [facility] [place] [facility] [address] [place] [address] Iron deficiency anemia, unspecified iron deficiency anemia type Discharge Disposition: Discharge to home or self care 05/30/2024 12:45 PM CDT Infusion [facility] at [facility] [address] [place] [phone] Iron deficiency anemia due to chronic blood loss (Primary Dx); Iron deficiency anemia, unspecified iron deficiency anemia type from Last 3 Months Allergies Active Allergy Reactions Criticality Noted Date [...] FOR COUGH, WHEEZE OR SHORTNESS OF BREATH 0 Active hydroCHLOROthia zide (HYDRODIURIL) 12.5 mg [...] disease. I recommended that he contact his house mover or to determine if additional evaluation is [...] 03/06/2017 Assessment & Plan (06/18/2018 3:17 PM VETERINARY SURGEON): Patient is 1 month status post repeat [...] 03/06/2017 Assessment & Plan (06/18/2018 3:18 PM VETERINARY SURGEON): The patient's blood pressure has been elevated recently. I added low-dose amlodipine to his regimen. Assessment & Plan (09/18/2017 12:55 PM VETERINARY SURGEON): Risk factor for stroke. Remains anticoagulated. Assessment & Plan (03/06/2017 1:17 PM CDT): Risk factor for stroke. Remains anticoagulated.. Anticoagulation management encounter 03/06/2017 Assessment & Plan (11/15/2019 3:23 PM CDT): I recommended that the patient remain anticoagulated for thromboprophylaxis. He is presently tolerating Xarelto without difficulty. Assessment & Plan (06/18/2018 3:18 PM VETERINARY SURGEON): The patient has a [id number] score of 1 (annualized risk of stroke 1.2 %). I recommended that the patient remain anticoagulated for thromboprophylaxis. Assessment & Plan (09/18/2017 12:55 PM VETERINARY SURGEON): He remains anticoagulated on Xarelto 20 mg [...] expectantly. Assessment & Plan (09/18/2017 12:59 PM VETERINARY SURGEON): He is post ablation of his atrial [...] Diagnosed Date Resolved Date Paroxysmal atrial fibrillation ([facility]) 08/29/2019 10/17/2023 Overview (08/29/2019): Added automatically from request for surgery [id number] On amiodarone therapy 08/21/20192023 Immunizations Name Administration Dates Next Due Influenza, Unspecified 04/12/2023 Pfizer SARS-CoV-2 Monovalent Vaccination (12+ Yrs) PURPLE 11/04/2020,10/14/2020 Social History Tobacco Use Types Packs/Day Years [...] on file Legal Sex Male 12:26 PM VETERINARY SURGEON Gender Identity Not on file Sexual Orientation Not on file Last Filed Vital Signs Vital Sign Reading Time Taken Comments Blood Pressure 121/76 08/22/2024 1:37 PM VETERINARY SURGEON Pulse 76 08/22/2024 1:37 PM VETERINARY SURGEON Temperature 36.4 ??C (97.5 ??F) 08/22/2024 10:[address] Respiratory Rate 18 08/22/2024 1:37 PM VETERINARY SURGEON Oxygen Saturation 96% 08/22/2024 1:37 PM VETERINARY SURGEON Inhaled Oxygen Concentration - - Weight 155.6 kg (343 lb) 08/22/2024 10:50 AM VETERINARY SURGEON Height 193 cm (6' 4 ) 08/22/2024 10:50 AM VETERINARY SURGEON w shoes Body Mass Index 41.75 08/22/2024 10:50 AM VETERINARY SURGEON Plan of Treatment Not on file Medical Devices Implanted Type [employer] Device Identifier Shelf Expiration Date Model / Serial / Lot [employer] [id number] Vascade 6/7fr Bioabsorbable Vascular System Compression Collagen - [id number] - [id number] Implanted:Qty: 1 on 09/30/2019 by José Antonio Shah MD at [facility] Collagen N/A: Vein [employer] 05/08/2021 700-580I- 05U / [id number] 09A / [id number] 09A [employer] [id number] System 6-12fr Mvp Venous Closure Vascade - [id number] - [id number] Implanted:Qty: 1 on 09/30/2019 by José Antonio Shah MD at [facility] Collagen N/A: Vein [employer] 09/16/2021 800-612C- 10U / [id number] 17A / [id number] 17A [employer] [id number] System 6-12fr Mvp Venous Closure Vascade - [id number] - [id number] Implanted:Qty: 1 on 09/30/2019 by José Antonio Shah MD at [facility] Collagen N/A: Vein [employer] 09/16/2021 800-612C- 10U / [id number] 17A / [id number] 17A [employer] [id number] System 6-12fr Mvp Venous Closure Vascade - [id number] - [id number] Implanted:Qty: 1 on 09/30/2019 by José Antonio Shah MD at [facility] Collagen N/A: Vein [employer] 09/16/2021 800-612C- 10U / [id number] 17A / [id number] 17A Procedures Procedure Name Priority Date/Time Associated Diagnosis Comments RETICULOCYTES Routine 08/22/2024 10:12 AM VETERINARY SURGEON Iron deficiency anemia, unspecified iron deficiency anemia type DIFFERENTIAL AUTO Routine 08/22/2024 10: 12 AM VETERINARY SURGEON Iron deficiency anemia, unspecified iron deficiency anemia type FERRITIN Routine 08/22/2024 10:12 AM VETERINARY SURGEON Iron deficiency anemia, unspecified iron deficiency anemia type IRON PROFILE W/ IBC Routine 08/22/2024 1 0:12 AM VETERINARY SURGEON Iron deficiency anemia, unspecified iron deficiency anemia type CBC WITH AUTO DIFFERENTIAL Routine 08/22/2024 10:12 AM VETERINARY SURGEON Iron deficiency anemia, unspecified iron deficiency anemia type DIFFERENTIAL AUTO Routine 07/25/2024 7:3 5 AM VETERINARY SURGEON Iron deficiency anemia, unspecified iron deficiency anemia type CBC WITH AUTO DIFFERENTIAL Routine 07/25/2024 7:35 AM VETERINARY SURGEON Iron deficiency anemia, unspecified iron deficiency anemia type DIFFERENTIAL AUTO Routine 07/18/2024 7:1 2 AM VETERINARY SURGEON Iron deficiency anemia, unspecified iron deficiency anemia type CBC WITH AUTO DIFFERENTIAL Routine 07/18/2024 7:12 AM VETERINARY SURGEON Iron deficiency anemia, unspecified iron deficiency anemia type DIFFERENTIAL AUTO Routine 07/11/2024 7:3 5 AM VETERINARY SURGEON Iron deficiency anemia, unspecified iron deficiency anemia type ANTIBODY SCREEN Routine 07/11/2024 7:35 AM VETERINARY SURGEON Iron deficiency anemia, unspecified iron deficiency anemia type ABO/RH Routine 07/11/2024 7:35 AM VETERINARY SURGEON Iron deficiency anemia, unspecified iron deficiency anemia type TYPE AND SCREEN Routine 07/11/2024 7:35 AM VETERINARY SURGEON Iron deficiency anemia, unspecified iron deficiency anemia type CBC WITH AUTO DIFFERENTIAL Routine 07/11/2024 7:35 AM VETERINARY SURGEON Iron deficiency anemia, unspecified iron deficiency anemia type MANUAL DIFFERENTIAL Routine 07/05/2024 2 :01 PM VETERINARY SURGEON Iron deficiency anemia, unspecified iron deficiency anemia type DIFFERENTIAL AUTO Routine 07/05/2024 2:0 1 PM VETERINARY SURGEON Iron deficiency anemia, unspecified iron deficiency anemia type CBC WITH AUTO DIFFERENTIAL Routine 07/05/2024 2:01 PM VETERINARY SURGEON Iron deficiency anemia, unspecified iron deficiency anemia type FERRITIN Routine 07/05/2024 2:01 PM VETERINARY SURGEON Iron deficiency anemia, unspecified iron deficiency anemia type IRON PROFILE W/ IBC Routine 07/05/2024 2 :01 PM VETERINARY SURGEON Iron deficiency anemia, unspecified iron deficiency anemia type RETICULOCYTES Routine 07/05/2024 2:01 PM VETERINARY SURGEON Iron deficiency anemia, unspecified iron deficiency anemia type GUAIAC OCCULT BLOOD, FECAL, NOT FOR NEOPLASM SCREENING Routine 05/31/2024 2:20 PM CDT Iron deficiency anemia, unspecified iron deficiency anemia type COLONOSCOPY 10/12/2020 3:51 PM CDT from Last 3 Months or Most Recently Relevant to Health Maintenance Results * Differential, auto (08/22/2024 10:12 AM VETERINARY SURGEON) Neutrophil abs 2.8 1.5 - 6.5 K/cumm Comment:Testing performed by : [address] [address] Imm gran abs 0.0 0.0 - 0.1 K/cumm HECTOR Comment:Testing performed by : [address] [address] Lymphocyte abs 0.9 0.8 - 3.3 K/cumm HECTOR Comment:Testing performed by : [address] [address] Monocyte abs 0.5 0.2 - 0.8 K/cumm HECTOR Comment:Testing performed by : [address] [address] Eosinophil abs 0.2 0.0 - 0.5 K/cumm HECTOR Comment:Testing performed by : [address] [address] Basophil abs 0.0 0.0 - 0.1 K/cumm HECTOR Comment:Testing performed by : [address] [address] Neutrophil pct 63.7 % HECTOR Comment: Interpretive Data Percent cell count reference ranges are not reported, since discordance with absolute values may lead to misinterpretation of CBC data. Current Interpretive Data was last revised on 2017. Testing performed by: [address] [address] Imm gran pct 0.2 % [facility] Comment: Interpretive Data Percent cell count reference ranges are not reported, since discordance with absolute values may lead to misinterpretation of CBC data. Current Interpretive Data was last revised on 2017. Testing performed by: [address] [address] Lymphocyte pct 19.4 % [facility] Comment: Interpretive Data Percent cell count reference ranges are not reported, since discordance with absolute values may lead to misinterpretation of CBC data. Current Interpretive Data was last revised on 2017. Testing performed by: [address] [address] Monocyte pct 11.9 % [facility] Comment: Interpretive Data Percent cell count reference ranges are not reported, since discordance with absolute values may lead to misinterpretation of CBC data. Current Interpretive Data was last revised on 2017. Testing performed by: [address] [address] Eosinophil pct 4.1 % [facility] Comment: Interpretive Data Percent cell count reference ranges are not reported, since discordance with absolute values may lead to misinterpretation of CBC data. Current Interpretive Data was last revised on 2017. Testing performed by: [address] [address] Basophil pct 0.7 % [facility] Comment: Interpretive Data Percent cell count reference ranges are not reported, since discordance with absolute values may lead to misinterpretation of CBC data. Current Interpretive Data was last revised on 2017. Testing performed by: [address] [address] Blood 08/22/2024 10:1 2 AM VETERINARY SURGEON 08/22/2024 10:14 AM VETERINARY SURGEON us Tom Lewis DO LAB BLOOD ORDERABLES Final R esult HECTOR [address] [facility] Department of Laboratories [place], [place] [id number] * (ABNORMAL) Iron profile w/ IBC (08/22/2024 10:12 AM VETERINARY SURGEON) [facility] Iron 27(L) 50 - 150 mcg/dL Comment:Testing performed by : [address] [address] TIBC 463(H) 250 - 400 mcg/dL HECTOR DUNCAN Comment:Testing performed by : [address] [address] Transferrin saturation 6(L) 20 - 50 % HECTOR Comment:Testing performed by : [address] [address] Blood 08/22/2024 10:1 2 AM VETERINARY SURGEON 08/22/2024 11:41 AM VETERINARY SURGEON us Tom Lewis DO LAB BLOOD ORDERABLES Final R esult Performing Organization Address City/State/[facility] Co de Phone Number HECTOR [address] [facility] Department [place] [address] * (ABNORMAL) CBC with auto differential (08/22/2024 10:12 AM VETERINARY SURGEON) [facility] WBC 4.4 3.8 - 9.9 K/cumm Comment:Testing performed by : [address] [address] Hgb 9.3(L) 13.0 - 17.5 g/dL HECTOR DUNCAN Comment:Testing performed by : [address] [address] Hct 32.7(L) 38.9 - 50.3 % HECTOR DUNCAN Comment:Testing performed by : [address] [address] Plt 171 150 - 400 K/cumm HECTOR DUNCAN Comment:Testing performed by : [address] [address] MPV 9.3 9.1 - 12.3 fL HECTOR DUNCAN Comment:Testing performed by : [address] [address] RBC 4.92 4.30 - 5.80 M/cumm HECTOR Comment:Testing performed by : [address] [address] MCV 66.5(L) 81.3 - 96.4 fL HECTOR Comment:Testing performed by : [address] [address] MCH 18.9(L) 27.1 - 33.3 pg HECTOR Comment:Testing performed by : [address] [address] MCHC 28.4(L) 32.3 - 35.7 g/dL HECTOR Comment:Testing performed by : [address], [address] RDW CV 18.9(H) 11.1 - 14.9 % HECTOR Comment:Testing performed by : [address] [address] RDW SD 44.3 35.7 - 48.1 fL HECTOR Comment:Testing performed by : [address] [address] NRBC abs 0.00 0.00 - 0.01 K/cumm HECTOR Comment:Testing performed by : [address] [address] Blood 08/22/2024 10:1 2 AM VETERINARY SURGEON 08/22/2024 10:14 AM VETERINARY SURGEON Tom Lewis DO LAB BLOOD ORDERABLES Final R esult [facility] [address] [facility] Department [place] [address] * (ABNORMAL) Reticulocyte Count (08/22/2024 10:12 AM VETERINARY SURGEON) Retics, absolute 0.080 0.020 - 0.087 M/cumm Comment:Testing performed by : [address], [address] Retics 1.6 0.4 - 2.9 % HECTOR Comment:Testing performed by : [address] [place]., [address] Reticulocyte Hgb 17.9(L) 30.5 - 38.0 pg HECTOR Comment:Testing performed by : [address] [address] Blood 08/22/2024 10:1 2 AM VETERINARY SURGEON 08/22/2024 10:14 AM VETERINARY SURGEON Tom Lewis DO LAB BLOOD ORDERABLES Final R esult Performing Organization Address [facility] de Phone Number [address] [place] [address] * (ABNORMAL) Ferritin (08/22/2024 10:12 AM VETERINARY SURGEON) Pathologist [facility] Ferritin 15(L) 30 - 400 ng/mL Comment:Testing performed by : [address] [address] Blood 08/22/2024 10:1 2 AM VETERINARY SURGEON 08/22/2024 11:41 AM VETERINARY SURGEON Tom Lewis DO LAB BLOOD ORDERAB[facility] Performing Organization Address [facility] de Phone Number [address] [place] [address] * Differential, auto (07/25/2024 7:35 AM VETERINARY SURGEON) Pathologist [facility] Neutrophil abs 1.9 1.5 - 6.5 K/cumm Comment:Testing performed by : [address] [address] Imm gran abs 0.0 0.0 - 0.1 K/cumm HECTOR Comment:Testing performed by : [address] [address] Lymphocyte abs 0.8 0.8 - 3.3 K/cumm HECTOR Comment:Testing performed by : [address] [address] Monocyte abs 0.5 0.2 - 0.8 K/cumm HECTOR Comment:Testing performed by : [address] [address] Eosinophil abs 0.1 0.0 - 0.5 K/cumm HECTOR Comment:Testing performed by : [address] [address] Basophil abs 0.0 0.0 - 0.1 K/cumm HECTOR Comment:Testing performed by : [address] [address] Neutrophil pct 55.6 % [facility] Comment: Interpretive Data Percent cell count reference ranges are not reported, since discordance with absolute values may lead to misinterpretation of CBC data. Current Interpretive Data was last revised on 2017. Testing performed by: [address] [address] Imm gran pct 0.3 % [facility] Comment: Interpretive Data Percent cell count reference ranges are not reported, since discordance with absolute values may lead to misinterpretation of CBC data. Current Interpretive Data was last revised on 2017. Testing performed by: [address] [address] Lymphocyte pct 24.0 % [facility] Comment: Interpretive Data Percent cell count reference ranges are not reported, since discordance with absolute values may lead to misinterpretation of CBC data. Current Interpretive Data was last revised on 2017. Testing performed by: [address] [address] Monocyte pct 15.0 % [facility] Comment: Interpretive Data Percent cell count reference ranges are not reported, since discordance with absolute values may lead to misinterpretation of CBC data. Current Interpretive Data was last revised on 2017. Testing performed by: [address] [address] Eosinophil pct 4.2 % [facility] Comment: Interpretive Data Percent cell count reference ranges are not reported, since discordance with absolute values may lead to misinterpretation of CBC data. Current Interpretive Data was last revised on 2017. Testing performed by: [address] [address] Basophil pct 0.9 % [facility] Comment: Interpretive Data Percent cell count reference ranges are not reported, since discordance with absolute values may lead to misinterpretation of CBC data. Current Interpretive Data was last revised on 2017. Testing performed by: [address] [address] Blood 07/25/2024 7:35 AM VETERINARY SURGEON 07/25/2024 7:44 AM VETERINARY SURGEON Tom Lewis DO LAB BLOOD ORDERABLES Final R esult [facility] [address] [facility] Department of Laboratories [place], [place] [id number] * (ABNORMAL) CBC with auto differential (07/25/2024 7:35 AM VETERINARY SURGEON) Pathologist [facility] WBC 3.3(L) 3.8 - 9.9 K/cumm Comment:Testing performed by : [address] [address] Hgb 8.6(L) 13.0 - 17.5 g/dL HECTOR Comment:Testing performed by : [address] [address] Hct 30.5(L) 38.9 - 50.3 % HECTOR Comment:Testing performed by : [address] [address] Plt 155 150 - 400 K/cumm HECTOR Comment:Testing performed by : [address] [address] MPV 9.2 9.1 - 12.3 fL HECTOR Comment:Testing performed by : [address] [address] RBC 4.51 4.30 - 5.80 M/cumm HECTOR Comment:Testing performed by : [address] [address] MCV 67.6(L) 81.3 - 96.4 fL HECTOR Comment:Testing performed by : [address] [address] MCH 19.1(L) 27.1 - 33.3 pg HECTOR DUNCAN Comment:Testing performed by : [address] [address] MCHC 28.2(L) 32.3 - 35.7 g/dL HECTOR DUNCAN Comment:Testing performed by : [address] [address] RDW CV 19.6(H) 11.1 - 14.9 % HECTOR DUNCAN Comment:Testing performed by : [address] [address] RDW SD 47.2 35.7 - 48.1 fL HECTOR DUNCAN Comment:Testing performed by : [address] [address] NRBC abs 0.00 0.00 - 0.01 K/cumm HECTOR DUNCAN Comment:Testing performed by : [address] [address] Blood 07/25/2024 7:35 AM VETERINARY SURGEON 07/25/2024 7:44 AM VETERINARY SURGEON Tom Lewis DO LAB BLOOD ORDERABLES Final R esult [facility] [address] [facility] Department [place] [address] * Differential, auto (07/18/2024 7:12 AM VETERINARY SURGEON) Neutrophil abs 2.6 1.5 - 6.5 K/cumm Comment:Testing performed by : [address] [address] Imm gran abs 0.0 0.0 - 0.1 K/cumm HECTOR DUNCAN Comment:Testing performed by : [address] [address] Lymphocyte abs 0.8 0.8 - 3.3 K/cumm HECTOR DUNCAN Comment:Testing performed by : [address] [address] Monocyte abs 0.5 0.2 - 0.8 K/cumm HECTOR DUNCAN Comment:Testing performed by : [address] [address] Eosinophil abs 0.2 0.0 - 0.5 K/cumm [facility] Comment:Testing performed by : [address] [address] Basophil abs 0.0 0.0 - 0.1 K/cumm [facility] Comment:Testing performed by : [address] [address] Neutrophil pct 63.4 % [facility] Comment: Interpretive Data Percent cell count reference ranges are not reported, since discordance with absolute values may lead to misinterpretation of CBC data. Current Interpretive Data was last revised on 2017. Testing performed by: [address] [address] Imm gran pct 0.7 % [facility] Comment: Interpretive Data Percent cell count reference ranges are not reported, since discordance with absolute values may lead to misinterpretation of CBC data. Current Interpretive Data was last revised on 2017. Testing performed by: [address] [address] Lymphocyte pct 19.3 % [facility] Comment: Interpretive Data Percent cell count reference ranges are not reported, since discordance with absolute values may lead to misinterpretation of CBC data. Current Interpretive Data was last revised on 2017. Testing performed by: [address] [address] Monocyte pct 12.0 % [facility] Comment: Interpretive Data Percent cell count reference ranges are not reported, since discordance with absolute values may lead to misinterpretation of CBC data. Current Interpretive Data was last revised on 2017. Testing performed by: [address] [address] Eosinophil pct 3.9 % [facility] Comment: Interpretive Data Percent cell count reference ranges are not reported, since discordance with absolute values may lead to misinterpretation of CBC data. Current Interpretive Data was last revised on 2017. Testing performed by: [address] [address] Basophil pct 0.7 % [facility] Comment: Interpretive Data Percent cell count reference ranges are not reported, since discordance with absolute values may lead to misinterpretation of CBC data. Current Interpretive Data was last revised on 2017. Testing performed by: [address] [address] Blood 07/18/2024 7:12 AM VETERINARY SURGEON 07/18/2024 7:30 AM VETERINARY SURGEON Tom Lewis DO LAB BLOOD ORDERABLES Final R esult [facility] [address] [facility] Department [place] [address] * (ABNORMAL) CBC with auto differential (07/18/2024 7:12 AM VETERINARY SURGEON) WBC 4.1 3.8 - 9.9 K/cumm Comment:Testing performed by : [address] [address] Hgb 8.6(L) 13.0 - 17.5 g/dL HECTOR Comment:Testing performed by : [address] [address] Hct 30.9(L) 38.9 - 50.3 % HECTOR Comment:Testing performed by : [address] [address] Plt 204 150 - 400 K/cumm HECTOR Comment:Testing performed by : [address] [address] MPV 10.1 9.1 - 12.3 fL HECTOR Comment:Testing performed by : [address] [address] RBC 4.56 4.30 - 5.80 M/cumm HECTOR Comment:Testing performed by : [address] [address] MCV 67.8(L) 81.3 - 96.4 fL HECTOR Comment:Testing performed by : [address] [address] MCH 18.9(L) 27.1 - 33.3 pg HECTOR DUNCAN Comment:Testing performed by : [address] [address] MCHC 27.8(L) 32.3 - 35.7 g/dL HECTOR DUNCAN Comment:Testing performed by : [address] [address] RDW CV 18.9(H) 11.1 - 14.9 % HECOTR DUNCAN Comment:Testing performed by : [address] [address] RDW SD 45.7 35.7 - 48.1 fL HECTOR DUNCAN Comment:Testing performed by : [address] [address] NRBC abs 0.00 0.00 - 0.01 K/cumm HECTOR DUNCAN Comment:Testing performed by : [address] [address] Blood 07/18/2024 7:12 AM VETERINARY SURGEON 07/18/2024 7:30 AM VETERINARY SURGEON us Tom Lewis DO LAB BLOOD ORDERABLES Final R esult HECTOR [address] [facility] Department [place] [address] * (ABNORMAL) Differential, auto (07/11/2024 7:35 AM VETERINARY SURGEON) Neutrophil abs 1.4(L) 1.5 - 6.5 K/cumm Comment:Testing performed by : [address] [address] Imm gran abs 0.0 0.0 - 0.1 K/cumm HECTOR DUNCAN Comment:Testing performed by : [address] [address] Lymphocyte abs 0.7(L) 0.8 - 3.3 K/cumm HECTOR DUNCAN Comment:Testing performed by : [address] [address] Monocyte abs 0.4 0.2 - 0.8 K/cumm HECTOR DUNCAN Comment:Testing performed by : [address] [address] Eosinophil abs 0.1 0.0 - 0.5 K/cumm [facility] Comment:Testing performed by : [address] [address] Basophil abs 0.0 0.0 - 0.1 K/cumm HECTOR Comment:Testing performed by : [address] [address] Neutrophil pct 53.0 % [facility] Comment: Interpretive Data Percent cell count reference ranges are not reported, since discordance with absolute values may lead to misinterpretation of CBC data. Current Interpretive Data was last revised on 2017. Testing performed by: [address] [address] Imm gran pct 0.4 % [facility] Comment: Interpretive Data Percent cell count reference ranges are not reported, since discordance with absolute values may lead to misinterpretation of CBC data. Current Interpretive Data was last revised on 2017. Testing performed by: [address] [address] Lymphocyte pct 26.3 % [facility] Comment: Interpretive Data Percent cell count reference ranges are not reported, since discordance with absolute values may lead to misinterpretation of CBC data. Current Interpretive Data was last revised on 2017. Testing performed by: [address] [address] Monocyte pct 14.3 % [facility] Comment: Interpretive Data Percent cell count reference ranges are not reported, since discordance with absolute values may lead to misinterpretation of CBC data. Current Interpretive Data was last revised on 2017. Testing performed by: [address] [address] Eosinophil pct 4.9 % [facility] Comment: Interpretive Data Percent cell count reference ranges are not reported, since discordance with absolute values may lead to misinterpretation of CBC data. Current Interpretive Data was last revised on 2017. Testing performed by: [address] [address] Basophil pct 1.1 % [facility] Comment: Interpretive Data Percent cell count reference ranges are not reported, since discordance with absolute values may lead to misinterpretation of CBC data. Current Interpretive Data was last revised on 2017. Testing performed by: [address] [address] Blood 07/11/2024 7:35 AM VETERINARY SURGEON 07/11/2024 7:46 AM VETERINARY SURGEON Tom Lewis DO LAB BLOOD ORDERABLES Final R esult [facility] Department [place] [address] * (ABNORMAL) CBC with auto differential (07/11/2024 7:35 AM VETERINARY SURGEON) WBC 2.7(L) 3.8 - 9.9 K/cumm Comment:Testing performed by : [address] [address] Hgb 8.4(L) 13.0 - 17.5 g/dL HECTOR Comment:Testing performed by : [address] [address] Hct 29.3(L) 38.9 - 50.3 % HECTOR Comment:Testing performed by : [address] [address] Plt 168 150 - 400 K/cumm HECTOR Comment:Testing performed by : [address] [address] MPV 9.6 9.1 - 12.3 fL HECTOR Comment:Testing performed by : [address] [address] RBC 4.36 4.30 - 5.80 M/cumm HECTOR Comment:Testing performed by : [address] [address] MCV 67.2(L) 81.3 - 96.4 fL HECTOR Comment:Testing performed by : [address] [address] MCH 19.3(L) 27.1 - 33.3 pg HECTOR DUNCAN Comment:Testing performed by : [facility], [address] [place] [address]., [address] MCHC 28.7(L) 32.3 - 35.7 g/dL HECTOR DUNCAN Comment:Testing performed by : [address] [address] RDW CV 18.1(H) 11.1 - 14.9 % HECTOR DUNCAN Comment:Testing performed by : [address] [address] RDW SD 43.8 35.7 - 48.1 fL HECTOR DUNCAN Comment:Testing performed by : [address] [address] NRBC abs 0.00 0.00 - 0.01 K/cumm HECTOR Comment:Testing performed by : [address] [address] Blood 07/11/2024 7:35 AM VETERINARY SURGEON 07/11/2024 7:46 AM VETERINARY SURGEON Tom Navarrete [employer] LAB BLOOD ORDERABLES Final R esult Performing Organization Address [facility] Co de Phone Number [address] [place] [address] * ABO/Rh (07/11/2024 7:35 AM VETERINARY SURGEON) ABO/Rh AB Positive Comment:Testing performed by : [address] [address] Blood 07/11/2024 7:35 AM VETERINARY SURGEON 07/11/2024 9:39 AM VETERINARY SURGEON Narrative HECTOR - 07/11/2024 10:40 AM VETERINARY SURGEON Has the patient had Daratumumab or Isatuximab in the past 6 months?->No Tom Lewis [employer] BLOOD BANK TEST ORDERABL ES Final Result Performing Organization Address [facility] Co de Phone Number [place] [address] [facility] [place] [address] * Antibody screen (07/11/2024 7:35 AM VETERINARY SURGEON) Jose, indirect, Gel Interpretation Negative ABSC Comment:Testing performed by : [address] [address] Blood 07/11/2024 7:35 AM VETERINARY SURGEON 07/11/2024 9:39 AM VETERINARY SURGEON Narrative HECTOR - 07/11/2024 10:40 AM VETERINARY SURGEON Has the patient had Daratumumab or Isatuximab in the past 6 months?->No Tom Lewis DO LAB BLOOD BANK TEST ORDERABL ES Final Result HECTOR [address] [facility] Department [place] [address] * Differential, auto (07/05/2024 2:01 PM VETERINARY SURGEON) Pathologist [facility] Neutrophil abs 2.0 1.5 - 6.5 K/cumm Comment:Testing performed by : [address] [address] Imm gran abs 0.0 0.0 - 0.1 K/cumm HECTOR Comment:Testing performed by : [address] [address] Lymphocyte abs 0.8 0.8 - 3.3 K/cumm HECTOR Comment:Testing performed by : [address] [address] Monocyte abs 0.4 0.2 - 0.8 K/cumm HECTOR Comment:Testing performed by : [address] [address] Eosinophil abs 0.1 0.0 - 0.5 K/cumm HECTOR Comment:Testing performed by : [address] [address] Basophil abs 0.0 0.0 - 0.1 K/cumm HECTOR Comment:Testing performed by : [address] [address] Neutrophil pct 60.3 % HECTOR Comment: Interpretive Data Percent cell count reference ranges are not reported, since discordance with absolute values may lead to misinterpretation of CBC data. Current Interpretive Data was last revised on 2017. Testing performed by: [address] [address] Imm gran pct 0.6 % CERNER Comment: Interpretive Data Percent cell count reference ranges are not reported, since discordance with absolute values may lead to misinterpretation of CBC data. Current Interpretive Data was last revised on 2017. Testing performed by: [address] [address] Lymphocyte pct 22.7 % [facility] Comment: Interpretive Data Percent cell count reference ranges are not reported, since discordance with absolute values may lead to misinterpretation of CBC data. Current Interpretive Data was last revised on 2017. Testing performed by: [address] [address] Monocyte pct 12.8 % [facility] Comment: Interpretive Data Percent cell count reference ranges are not reported, since discordance with absolute values may lead to misinterpretation of CBC data. Current Interpretive Data was last revised on 2017. Testing performed by: [address] [address] Eosinophil pct 2.7 % [facility] Comment: Interpretive Data Percent cell count reference ranges are not reported, since discordance with absolute values may lead to misinterpretation of CBC data. Current Interpretive Data was last revised on 2017. Testing performed by: [address] [address] Basophil pct 0.9 % [facility] Comment: Interpretive Data Percent cell count reference ranges are not reported, since discordance with absolute values may lead to misinterpretation of CBC data. Current Interpretive Data was last revised on 2017. Testing performed by: [address] [address] Blood 07/05/2024 2:01 PM VETERINARY SURGEON 07/05/2024 2:03 PM VETERINARY SURGEON Tom Lewis DO LAB BLOOD ORDERABLES Final R esult Performing Organization Address City/State/[facility] Co de Phone Number HECTOR [address] [facility] Department [place] [address] * (ABNORMAL) Iron profile w/ IBC (07/05/2024 2:01 PM VETERINARY SURGEON) Pathologist [facility] Iron 15(L) 50 - 150 mcg/dL Comment:Testing performed by : [address] [address] TIBC 461(H) 250 - 400 mcg/dL HECTOR DUNCAN Comment:Testing performed by : [address] [address] Transferrin saturation 3(L) 20 - 50 % HECTOR Comment:Testing performed by : [address] [address] Blood 07/05/2024 2:01 PM VETERINARY SURGEON 07/05/2024 4:18 PM VETERINARY SURGEON Tom Lewis DO LAB BLOOD ORDERABLES Final R esult Performing Organization Address [facility] de Phone Number [place] [id number] [facility] Department [place] [address] * (ABNORMAL) CBC with auto differential (07/05/2024 2:01 PM VETERINARY SURGEON) Pathologist [facility] WBC 3.4(L) 3.8 - 9.9 K/cumm Comment:Testing performed by : [address] [address] Hgb 8.7(L) 13.0 - 17.5 g/dL HECTOR DUNCAN Comment:Testing performed by : [address] [address] Hct 30.4(L) 38.9 - 50.3 % HECTOR DUNCAN Comment:Testing performed by : [address] [address] Plt 181 150 - 400 K/cumm HECTOR DUNCAN Comment:Testing performed by : [address] [address] MPV 9.0(L) 9.1 - 12.3 fL HECTOR DUNCAN Comment:Testing performed by : [address] [address] RBC 4.48 4.30 - 5.80 M/cumm HECTOR Comment:Testing performed by : [address] [address] MCV 67.9(L) 81.3 - 96.4 fL HECTOR Comment:Testing performed by : [address] [address] MCH 19.4(L) 27.1 - 33.3 pg HECTOR Comment:Testing performed by : [address] [address] MCHC 28.6(L) 32.3 - 35.7 g/dL HECTOR Comment:Testing performed by : [address] [address] RDW CV 18.4(H) 11.1 - 14.9 % HECTOR Comment:Testing performed by : [address] [address] RDW SD 44.9 35.7 - 48.1 fL HECTOR Comment:Testing performed by : [address] [address] NRBC abs 0.00 0.00 - 0.01 K/cumm HECTOR Comment:Testing performed by : [address] [address] Blood 07/05/2024 2:01 PM VETERINARY SURGEON 07/05/2024 2:03 PM VETERINARY SURGEON us Tom Lewis DO LAB BLOOD ORDERABLES Final R esult HECTOR [address] [facility] Department [place] [address] * Manual Differential (07/05/2024 2:01 PM VETERINARY SURGEON) Differential Auto Comment:Testing performed by : [address] [address] Neutrophil abs 2.0 1.5 - 6.5 K/cumm CERNER Comment:Testing performed by : [facility], [address] [place] [address], [place]., [address] Imm gran abs 0.0 0.0 - 0.1 K/cumm [facility] Comment:Testing performed by : [address], [place]., [address] Lymphocyte abs 0.8 0.8 - 3.3 K/cumm [facility] Comment:Testing performed by : [address] [address] Monocyte abs 0.4 0.2 - 0.8 K/cumm [facility] Comment:Testing performed by : [address], [place]., [address] Eosinophil abs 0.1 0.0 - 0.5 K/cumm [facility] Comment:Testing performed by : [address], [place]., [address] Basophil abs 0.0 0.0 - 0.1 K/cumm [facility] Comment:Testing performed by : [address] [address] Neutrophil pct 60.3 % [facility] Comment: Interpretive Data Percent cell count reference ranges are not reported, since discordance with absolute values may lead to misinterpretation of CBC data. Current Interpretive Data was last revised on 2017. Testing performed by: [address] [address] Imm gran pct 0.6 % CERNER Comment: Interpretive Data Percent cell count reference ranges are not reported, since discordance with absolute values may lead to misinterpretation of CBC data. Current Interpretive Data was last revised on 2017. Testing performed by: [address] [address] Lymphocyte pct 22.7 % CERNER Comment: Interpretive Data Percent cell count reference ranges are not reported, since discordance with absolute values may lead to misinterpretation of CBC data. Current Interpretive Data was last revised on 2017. Testing performed by: [address] [address] Monocyte pct 12.8 % CERNER Comment: Interpretive Data Percent cell count reference ranges are not reported, since discordance with absolute values may lead to misinterpretation of CBC data. Current Interpretive Data was last revised on 2017. Testing performed by: [address] [address] Eosinophil pct 2.7 % HECTOR Comment: Interpretive Data Percent cell count reference ranges are not reported, since discordance with absolute values may lead to misinterpretation of CBC data. Current Interpretive Data was last revised on 2017. Testing performed by: [address] [address] Basophil pct 0.9 % HECTOR Comment: Interpretive Data Percent cell count reference ranges are not reported, since discordance with absolute values may lead to misinterpretation of CBC data. Current Interpretive Data was last revised on 2017. Testing performed by: [address] [address] RBC morphology Consistent with RBC Indicies HECTOR DUNCAN Comment:Testing performed by : [address] [address] Blood 07/05/2024 2:01 PM VETERINARY SURGEON 07/05/2024 2:03 PM VETERINARY SURGEON us Tom Lewis DO LAB BLOOD ORDERABLES Final R esult HECTOR DUNCAN [address] [facility] Department of Laboratories [place], [place] [id number] * (ABNORMAL) Reticulocyte Count (07/05/2024 2:01 PM VETERINARY SURGEON) Retics, absolute 0.082 0.020 - 0.087 M/cumm Comment:Testing performed by : [address] [address] Retics 1.8 0.4 - 2.9 % HECTOR DUNCAN Comment:Testing performed by : [address] [address] Reticulocyte Hgb 18.2(L) 30.5 - 38.0 pg HECTOR DUNCAN Comment:Testing performed by : [address] [address] Blood 07/05/2024 2:01 PM VETERINARY SURGEON 07/05/2024 2:03 PM VETERINARY SURGEON Tom Lewis DO LAB BLOOD ORDERABLES Final R esult Performing Organization Address [facility] Co de Phone Number SHAJI[address] [address] * (ABNORMAL) Ferritin (07/05/2024 2:01 PM VETERINARY SURGEON) Ferritin 12(L) 30 - 400 ng/mL Comment:Testing performed by : [address] [address] Blood 07/05/2024 2:01 PM VETERINARY SURGEON 07/05/2024 4:18 PM VETERINARY SURGEON Tom Lewis DO LAB BLOOD ORDERABLES Final R esult Performing Organization Address [facility] [place] [facility] de Phone Number [address] [address] * (ABNORMAL) Guaiac occult blood, fecal, not for neoplasm screening (05/31/2024 2:20 PM CDT) [facility] Guaiac occult blood, fecal Positive(A ) Negative Comment:Testing performed by : [address] [address] Stool 05/31/2024 2:20 PM CDT 05/31/2024 3:51 PM CDT Tom Lewis DO LAB BODY FLUIDS AND STOOLS O RDERABLES Final Result Performing Organization Address [facility] Co de Phone Number SHAJI[address] [address] * COLONOSCOPY (10/12/2020 3:51 PM CDT) Anatomical Region Laterality Modality Other Narrative Procedure Note Dharmesh Paul MD PhD - 10/12/2020 3:51 PM CDT ENDOSCOPY LAB Patient Name: Darian Sheffield Procedure Date: 10/12/2020 3:51 PM Date of : 1955 Admit Type: Outpatient Age: 65 Gender: Male Attending MD: Dharmesh Paul MD,PHD Room: [facility] ENDOSCOPY ROOM 03 Note Status: Finalized Procedure: Colonoscopy Indications: Iron deficiency anemia Providers: Dharmesh Paul MD, PHD Referring MD: Isaac LockhartNKaran Medicines: Monitored Anesthesia Care Complications: No immediate [...] The scope was passed under direct vision.The [id number] was introduced through the anusand advanced to [...] inthe days following this procedure, please call camilairvinice at [phone] or [phone] to speak to my faculty research assistant. After hours and weekends, please call [phone] and ask for the GI fellow communications officer.Please tell them that Dr. Paul did your [...] Recently Relevant to Health Maintenance Insurance [facility] Address: [facility] [address] [place] [address] [facility] Address: [address] [address] Advance Directives For more information, please contact: [phone] * Full Code (Latest Code Status on File) Date Activated Date Inactivated Comments 10/12/2020 2:15 PM 10/12/2020 9:37 PM * Full Code Date Activated Date Inactivated Comments 05/02/2018 5:10 PM 05/03/2018 3:03 PM Care Teams Publicity Manager Relationship Specialty Start Date End Date Ariana Macario NP [address] [facility] 1 [place] [address] PCP - General Nurse Practitioner 07/05/24 Tom Lewis DO [address] [facility] MEDICAL ONCOLOGY, [facility] [address] [place] [address] Medical Oncologist/Hematologi Hematology and Oncology 08/26/20 Dharmesh Paul MD PhD [address] [place] [address] Referring Physician Gastroenterology 12/31/20 Yony Hill MD [address] [facility] [address] [place], [place] [address] Consulting Physician Cardiology 04/14/22 Ramin Franco MD [address] [facility] 204 [place] [address] Referring Physician Gastroenterology 06/03/24
--- OUTSIDE RECORDS SUMMARY | 2024-08-29 15:37 | XMS_ITS | Encounter Summary ---
Author Organization [facility] Address [address] [address] Care Team Providers Care Video Arcade Manager Name Role Phone No, Physician Primary Care Provider [phone] Jonathan QURESHI NP, Merlin Larson Primary Care Provider Jonathan QURESHI NP, Merlin Larson Primary Care Provider Tom Lewis DO Unavailable [phone] Toro Henriquez MD Primary Care Provider [phone] Dharmesh Paul MD PhD Unavailable [phone] Yony Hill MD Unavailable [phone] Gabo Vance MD Primary Care Provider + [phone] Ramin Franco MD Unavailable + Ariana Macario NP Primary Care Provider [phone] Encounter Details Date Type Department Care Team (Late st Contact Info) Description 09/27/2016 Orders Only [facility] ProviderMurali MD [address] [place] [address] Social History Tobacco Use Types Packs/Day Years Used Date Smoking Tobacco: Never Assessed Alcohol Use Standard Drinks/Week Comments Yes 0 (1 standard drink = 0.6 oz pur e alcohol) Sex and Gender Information Value Date Recorded Sex Assigned at Not on file Legal Sex Male 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 us Historical Provider [facility] NIKOLAY JAQUEZ Final Result documented in this encounter Visit Diagnoses Not on filedocumented in this encounter Care Teams Video Arcade Manager Relationship Specialty Start Date End Date No, Physician PCP - General 02/06/17 02/13/17 Merlin Castillo III, NP PCP - General Family Practice 02/14/17 09/24/18 Merlin Castillo III EMPLOYEE HE[employer] NURSE PCP - General Family Practice 09/25/18 12/30/20 Toro Henriquez MD [address] [facility] 1 [place] [address] PCP - General Internal Medicine 12/31/20 06/14/23 Gabo Vance MD [address] [facility] [address] [place] [address] PCP - General Family Practice 06/15/23 07/04/24 Ariana Macario NP [address] [facility] 1 [place] [address] PCP - General Nurse Practitioner 07/05/24 Tom Lewis DO [address] [place] [address] MEDICAL ONCOLOGY, [facility] [address] [place] [address] Medical Oncologist/Hematologi Hematology and Oncology 08/26/20 Dharmesh Paul MD PhD [address] [place] [address] Referring Physician Gastroenterology 12/31/20 Yony Hill MD [address] [facility] [address] [place] [address] Consulting Physician Cardiology 04/14/22 Ramin Franco MD [address] [facility] [address] [place] [address] Referring Physician Gastroenterology 06/03/24 documented as of this encounter
[2024-08-29 17:31] LABS: Alanine Aminotransferase 33 U/L (6-50); Albumin Level 4.1 g/dL (3.5-5.1); Alkaline Phosphatase 69 U/L (38-126); Anion Gap 11 mmol/L (4-12); Aspartate Amino Transferase 25 U/L (17-59); Blood Urea Nitrogen 10 mg/dL (9-20); Calcium 9.3 mg/dL (8.4-10.2); Carbon Dioxide 27 mmol/L (22-30); Chloride 101 mmol/L (98-107); Cholesterol 90 mg/dL (0-200); Estimated Glomerular Filt Rate > 60; Glucose 98 mg/dL (65-110); HDL Direct 45 mg/dL; Potassium 3.9 mmol/L (3.4-5.0); Sodium 139 mmol/L (137-145); Triglycerides 95 mg/dL (<150)
[2024-08-29 17:43] LABS: LDL Cholesterol Direct 33 mg/dL
[2024-08-29 20:21] LABS: Hemoglobin A1C 5.3 % (<5.7)
== END 2024-08-29 15:12 | disposition home or self-care (01) ==
PROVIDERS: PCP Nurse Practitioner Family; Visit Provider Nurse Practitioner Family
DX: R73.03 Prediabetes (principal); I10 Essential (primary) hypertension; I48.19 Other persistent atrial fibrillation; E78.5 Hyperlipidemia, unspecified; E66.01 Morbid (severe) obesity due to excess calories; R93.3 Abnormal findings on diagnostic imaging of other parts of digestive tract; D50.0 Iron deficiency anemia secondary to blood loss (chronic); M54.50 Low back pain, unspecified; G89.29 Other chronic pain; G47.33 Obstructive sleep apnea (adult) (pediatric); L57.0 Actinic keratosis
CPT/HCPCS: 36415; 80053; 80061; 83036

== ENCOUNTER 2025-01-02 11:19 | Outpatient (CLI) | payer MEDICARE, SELFPAY ==
--- NOTE | ~2025-01-02 | XR_ITS ---
Lumbosacral Spine: AP and lateral views Clinical History: Pain Findings: Bilateral L5 pars interarticularis defects are present. There is approximately 2.5 cm anter olisthesis of L5 over S1 with severe degenerative disc narrowing at L5-S1. There is advanced facet ar thropathy from L3 through S1. There is moderate degenerative disc narrowing at L3-L4. The sacroiliac joints are normally outlined. Impression: Bilateral L5 pars interarticularis defects with probable 2.5 cm anterolisthesis of L5 over S1. Advanced degenerative change of the lower lumbar spine, as above. Reviewed, dictated and finalized at [facility]. Impression: Bilateral L5 pars interarticularis defects with probable 2.5 cm anterolisthesis of L5 over S1. Advanced degenerative change of the lower lumbar spine, as above.
--- OUTSIDE RECORDS SUMMARY | 2025-01-02 12:26 | XMS_ITS | Encounter Summary ---
Author Organization [facility] Address [address] [address] Care Team Providers Care Hair Boiler Name Role Phone No, Physician Primary Care Provider [phone] Jonathan QURESHI NP, Merlin Larson Primary Care Provider Jonathan QURESHI NP, Merlin Larson Primary Care Provider Tom Lewis DO Unavailable [phone] Toro Henriquez MD Primary Care Provider [phone] Dharmesh Paul MD PhD Unavailable [phone] Yony Hill MD Unavailable [phone] Gabo Vance MD Primary Care Provider [phone] Ramin Franco MD Unavailable + Ariana Macario NP Primary Care Provider [phone] Agustin Stroud MD Unavailable [phone] Encounter Details Date Type Department Care Team (Late st Contact Info) Description 07/28/2016 Orders Only [facility] Provider, MD Murali [address] [place] [address] Social History Tobacco Use Types Packs/Day Years Used Date Smoking Tobacco: Never Assessed Alcohol Use Standard Drinks/Week Comments Yes 0 (1 standard drink = 0.6 oz pur e alcohol) Sex and Gender Information Value Date Recorded Sex Assigned at Not on file Legal Sex Male 12:26 PM 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 Historical Provider [facility] N[facility] JAQUEZ Final Result documented in this encounter Visit Diagnoses Not on filedocumented in this encounter Care Teams Hair Boiler Relationship Specialty Start Date End Date No, Physician PCP - General 02/06/17 02/13/17 Merlin Castillo III, CAKE WINDER PCP - General Family Practice 02/14/17 09/24/18 Merlin Castillo III, CAKE WINDER PCP - General Family Practice 09/25/18 12/30/20 Toro Henriquez MD [address] [place] [address] PCP - General Internal Medicine 12/31/20 06/14/23 Gabo Vance MD [address] [place], [place] [id number] PCP - General Family Practice 06/15/23 07/04/24 Ariana Macario NP [address] [place] [address] PCP - General Nurse Practitioner 07/05/24 Tom Lewis DO [address] [facility] [address] [place] [address] Medical Oncologist/Hematologi Hematology and Oncology 08/26/20 Dharmesh Paul MD PhD [address] [place] [address] Referring Physician Gastroenterology 12/31/20 Yony Hill MD [address] [place], [place] [id number] Consulting Physician Cardiology 04/14/22 Ramin Franco MD [address] [place] [address] Referring Physician Gastroenterology 06/03/24 Agustin Stroud MD [address] [place] [address] Consulting Physician Cardiothoracic Surgery 12/10/24 documented as of this encounter
--- OUTSIDE RECORDS SUMMARY | 2025-01-02 12:26 | XMS_ITS | Encounter Summary ---
Author Organization [facility] Address [address] [address] Care Team Providers Care Housekeeper/Laundry Assistant Name Role Phone No, Physician Primary Care Provider [phone] Jonathan QURESHI NP, Merlin Larson Primary Care Provider Jonathan QURESHI NP, Merlin Larson Primary Care Provider Tom Lewis DO Unavailable [phone] Toro Henriquez MD Primary Care Provider [phone] Dharmesh Paul MD PhD Unavailable [phone] Yony Hill MD Unavailable [phone] Gabo Vance MD Primary Care Provider [phone] Ramin Franco MD Unavailable + Ariana Macario NP Primary Care Provider [phone] Agustin Stroud MD Unavailable [phone] Encounter Details Date Type Department Care Team (Late st Contact Info) Description 09/27/2016 Orders Only [facility] ProviderMurali MD [address] [place] [address] Social History Tobacco Use Types Packs/Day Years Used Date Smoking Tobacco: Never Assessed Alcohol Use Standard Drinks/Week Comments Yes 0 (1 standard drink = 0.6 oz pur e alcohol) Sex and Gender Information Value Date Recorded Sex Assigned at Not on file Legal Sex Male 12:26 PM 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 Historical Provider [facility] N[facility] JAQUEZ Final Result documented in this encounter Visit Diagnoses Not on filedocumented in this encounter Care Teams Housekeeper/Laundry Assistant Relationship Specialty Start Date End Date No, Physician PCP - General 02/06/17 02/13/17 Merlin Castillo III, DISPLAY ARTIST PCP - General Family Practice 02/14/17 09/24/18 Merlin Castillo III, DISPLAY ARTIST PCP - General Family Practice 09/25/18 12/30/20 Toro Henriquez MD [address] [place] [address] PCP - General Internal Medicine 12/31/20 06/14/23 Gabo Vance MD [address] [place], [place] [id number] PCP - General Family Practice 06/15/23 07/04/24 Ariana Macario NP [address] [place], [place] [id number] PCP - General Nurse Practitioner 07/05/24 Tom Lewis DO [address] [facility] [place] [address] Medical Oncologist/Hematologi Hematology and Oncology 08/26/20 Dharmesh Paul MD PhD [address] [place] [address] Referring Physician Gastroenterology 12/31/20 Yony Hill MD [address] [place], [place] [id number] Consulting Physician Cardiology 04/14/22 Ramin Franco MD [address] [place] [address] Referring Physician Gastroenterology 06/03/24 Agustin Stroud MD [address] [place] [address] Consulting Physician Cardiothoracic Surgery 12/10/24 documented as of this encounter
--- OUTSIDE RECORDS SUMMARY | 2025-01-02 12:27 | XMS_ITS | Referral Summary ---
Author Organization [facility] Address [address] [place] [address] Care Team Providers Care Automatic Chief Name Role Phone Tom Lewis DO Unavailable [phone] Dharmesh Paul MD PhD Unavailable [phone] Yony Hill MD Unavailable Ramin Fracno MD Unavailable + Ariana Macario NP Primary Care Provider Agustin Stroud MD Unavailable [phone] Encounters Date Type Department Care Team Description 12/19/2024 11:15 AM CDT Lab [facility] [address] [place] [id number] Iron deficiency anemia, unspecified iron deficiency anemia type 12/19/2024 11:45 AM CDT Office Visit [facility] On[facility] [address] [place] [address] [address] [place] [phone] Tom Lewis DO Iron deficiency anemia, unspecified iron deficiency anemia type (Primary Dx) 12/10/2024 Documentation Cardiovascular and Thoracic Surgery [address] [facility] [address] [place] [address] Meaghan Desai 12/09/2024 9:10 AM CDT Anesthesia Event [facility] [address] [place] [phone] Roderick Graham MD Strand, Sarah B., MD 12/09/2024 7:56 AM CDT - 12/09/2024 11:59 PM CDT Hospital Encounter [facility] [address] [place] [phone] Yony Castro MD Persistent atrial fibrillation (HCC) Discharge Disposition: Discharge to home or self care 12/09/2024 6:08 AM CDT - 12/09/2024 11:59 PM CDT Hospital Encounter [facility] - Imaging [address] [place] [phone] Persistent atrial fibrillation (HCC) Discharge Disposition: Discharge to home or self care 11/14/2024 12:15 PM CDT Lab [facility] at [address] [address] Iron deficiency anemia, unspecified iron deficiency anemia type 11/14/2024 12:45 PM CDT Infusion [facility] at [address] [place] [phone] Iron deficiency anemia due to chronic blood loss (Primary Dx); Iron deficiency anemia, unspecified iron deficiency anemia type 10/31/2024 Orders Only [facility] Cardiology [address] [place] [address] [address] [place] [phone] Murali Barrera MD 10/30/2024 Telephone [facility] Medical [facility] [address] [facility] [address] [place] [address] Yony Hill MD [facility] Scheduling 10/30/2024 11:45 AM CDT Office Visit [facility] Cardiology at [address] [place] [phone] Yony Hill MD Persistent atrial fibrillation (HCC) (Primary Dx) 10/17/2024 12:00 PM CDT Lab [facility] at [address] [address] Iron deficiency anemia, unspecified iron deficiency anemia type 10/17/2024 12:30 PM CDT Infusion [facility] at [address] [place] [phone] Iron deficiency anemia due to chronic blood loss (Primary Dx); Iron deficiency anemia, unspecified iron deficiency anemia type from Last 3 Months Allergies Active Allergy Reactions Criticality Noted Date Comments Prochlorperazine Other (See comments) Low Pt unaware of any reaction to this medication Medications cholecalcifero l (VITAMIN D3) 400 unit capsule take 1 by Oral route once 0 0 6 Active Additional Information Patient taking differently: (No dose reported), Take 1 tablet po on Monday, Monday and Monday, Reported on 12/19/2024 carvedilol (COREG) 25 mg tablet Take 1 tablet (25 mg total) by mouth 2 (two) times a day with meals. 60 tablet 1 8 Active telmisartan (MICARDIS) 80 mg tablet Take 1 tablet (80 mg total) by mouth daily 0 9 Active amLODIPine (NORVASC) 5 mg tablet TAKE 1 TABLET BY MOUTH EVERY DAY 90 tablet 3 9 Active ProAir HFA 90 mcg/actuation inhaler TAKE 2 PUFFS EVERY 6 HOURS NEEDED FOR COUGH, WHEEZE OR SHORTNESS OF BREATH 0 Active hydroCHLOROthi azide (HYDRODIURIL) 12.5 mg tablet Take 1 tablet (12.5 mg total) by mouth daily 1 Active HYDROcodone-ac etaminophen (NORCO) 10-325 mg per tablet as needed 2 Active Xarelto 20 mg tablet Take 1 tablet (20 mg total) by mouth daily 90 tablet [address] (PROTONIX) 40 mg EC tablet TAKE ONE TABLET BY MOUTH ONCE DAILY 30 tablet 2 5 Active zolpidem (AMBIEN) 10 mg tablet 1 12/20/19 25 Discontin ued(Patie nt Reported) dicyclomine (BENTYL) 10 mg capsule 4 12/20/19 25 Discontin ued(Patie nt Reported) colestipoL (COLESTID) 5 gram packet Take 1 packet (5 g total) by mouth daily Only takes half a packet a day. 12/20/19 25 Discontin ued(Patie nt Reported) Active Problems Problem Noted Date Diagnosed Date Typical atrial flutter 11/15/2019 S/P ablation of atrial fibrillation 11/15/2019 [...] disease. I recommended that he contact his hand engraver or to determine if additional evaluation is necessary. I would certainly prefer to have at least an ECG available at our disposal, and possibly an echocardiogram. The patient will follow-up with me in 2 months for an office visit and twelve- lead ECG. 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 I added low-dose amlodipine to his regimen. Assessment & Plan (09/18/2017 12:55 PM E COMMERCE RETAILER): Risk factor for stroke. Remains anticoagulated. Assessment & Plan (03/06/2017 1:17 PM CDT): Risk factor for stroke. Remains anticoagulated.. Anticoagulation management encounter 03/06/2017 Assessment & Plan (11/15/2019 3:23 PM CDT): I recommended that the patient remain anticoagulated for thromboprophylaxis. He is presently tolerating Xarelto without difficulty. Assessment & Plan (06/18/2018 3:18 PM E COMMERCE RETAILER): The patient has a [id number] score of 1 (annualized risk of stroke 1.2 %). I recommended that the patient remain anticoagulated for thromboprophylaxis. Assessment & Plan (09/18/2017 12:55 PM E COMMERCE RETAILER): He remains anticoagulated on Xarelto 20 mg [...] expectantly. Assessment & Plan (09/18/2017 12:59 PM E COMMERCE RETAILER): He is post ablation of his atrial [...] Diagnosed Date Resolved Date Paroxysmal atrial fibrillation 08/29/2019 10/17/2023 Overview (08/29/2019): Added automatically from request for surgery [id number] On amiodarone therapy 08/21/20192023 Immunizations Immunization Administration Dates Next Due Influenza, Unspecified 04/12/2023 [employer] SARS-CoV-2 Monovalent Vaccination (12+ Yrs) PURPLE 11/04/2020,10/14/2020 [...] Answer Date Recorded PHQ-2 Score 0 03/23/2019 Personal Safety Answer Date Recorded Have you ever been in or are you currently in a harmful physical or emotional relationship or is someone making you feel afraid or unsafe? Denies 12/09/2024 Sex and Gender Information Value Date Recorded Sex Assigned at Not on file Legal Sex Male 12:26 PM E COMMERCE RETAILER Gender Identity Not on file Sexual Orientation Not on file Last Filed Vital Signs Vital Sign Reading Time Taken Comments Blood Pressure 153/83 12/19/2024 11:35 AM CDT Pulse 96 12/19/2024 11:35 AM CDT Temperature 36.4 C (97.5 F) 12/19/2024 11:35 AM CDT Respiratory Rate 16 12/19/2024 11:35 AM CDT Oxygen Saturation 97% 12/19/2024 11:35 AM CDT Inhaled Oxygen Concentration - - Weight 155.1 kg (342 lb) 12/19/2024 11:35 AM CDT Height 193 cm (6' 4) 12/09/2024 8:26 AM CDT Body Mass Index 41.63 12/09/2024 8:26 AM CDT Plan of Treatment Not on file Medical Devices Implanted Type Area Medicare Specialist Device Identifier Shelf Expiration Date Model / Serial / Lot [employer] [id number] Vascade 6/7fr Bioabsorbable Vascular System Compression Collagen - [id number] - [id number] Implanted:Qty: 1 on 09/30/2019 by José Antonio Shah MD at [facility] Collagen N/A: Vein [employer] 05/08/2021 [id number] [id number] / [id number] / [id number] [employer] [id number] System 6-12fr Mvp Venous Closure Vascade - [id number] - [id number] Implanted:Qty: 1 on 09/30/2019 by José Antonio Shah MD at [facility] Collagen N/A: Vein [employer] 09/16/2021 [id number] [id number] / [id number] 17A / [id number] 17A [employer] [id number] System 6-12fr Mvp Venous Closure Vascade - [id number] - [id number] Implanted:Qty: 1 on 09/30/2019 by José Antonio Shah MD at [facility] Collagen N/A: Vein [employer] 09/16/2021 [id number] [id number] / [id number] 17A / [id number] 17A [employer] [id number] System 6-12fr Mvp Venous Closure Vascade - [id number] - [id number] Implanted:Qty: 1 on 09/30/2019 by José Antonio Shah MD at [facility] Collagen N/A: Vein [employer] 09/16/2021 800-612C- [id number] / [id number] [id number] / [id number] [id number] Procedures Procedure Name Priority Date/Time Associated Diagnosis Comments EGFR Routine 12/19/2024 11:03 AM CDT Iron deficiency anemia, unspecified iron deficiency anemia type DIFFERENTIAL AUTO Routine 12/19/2024 11:03 AM CDT Iron deficiency anemia, unspecified iron deficiency anemia type COMPREHENSIVE METABOLIC PANEL Routine 12/19/2024 11:03 AM CDT Iron deficiency anemia, unspecified iron deficiency anemia type FERRITIN Routine 12/19/2024 11:03 AM CDT Iron deficiency anemia, unspecified iron deficiency anemia type IRON PROFILE W/ IBC Routine 12/19/2024 11:03 AM CDT Iron deficiency anemia, unspecified iron deficiency anemia type CBC WITH AUTO DIFFERENTIAL Routine 12/19/2024 11:03 AM CDT Iron deficiency anemia, unspecified iron deficiency anemia type TRANSESOPHAGEAL ECHO (LISSA) W DOPPLER/CF WO CONTRAST Routine 12/09/2024 9:38 AM CDT Persistent atrial fibrillation (HCC) CT HEART MORPHOLOGY W CONTRAST Schedule Routine, Read Routine (OP Routine) 12/09/2024 7:46 AM CDT Persistent atrial fibrillation (HCC) DIFFERENTIAL AUTO Routine 11/14/2024 12:28 PM CDT Iron deficiency anemia, unspecified iron deficiency anemia type IRON PROFILE W/ IBC Routine 11/14/2024 12:28 PM CDT Iron deficiency anemia, unspecified iron deficiency anemia type FERRITIN Routine 11/14/2024 12:28 PM CDT Iron deficiency anemia, unspecified iron deficiency anemia type CBC WITH AUTO DIFFERENTIAL Routine 11/14/2024 12:28 PM CDT Iron deficiency anemia, unspecified iron deficiency anemia type DIFFERENTIAL AUTO Routine 10/17/2024 12:11 PM CDT Iron deficiency anemia, unspecified iron deficiency anemia type CBC WITH AUTO DIFFERENTIAL Routine 10/17/2024 12:11 PM CDT Iron deficiency anemia, unspecified iron deficiency anemia type COLONOSCOPY 10/12/2020 3:51 PM CDT from Last 3 Months or Most Recently Relevant to Health Maintenance Results * eGFR (12/19/2024 11:03 AM CDT) eGFR >90 >=60 mL/min/1. 73 m2 Comment: Interpretive Data Reference Interval Normal >/= 90 mL/min/1.73m2 Mildly decreased* 60 - 89 mL/min/1.73m2 Mildly to moderately decreased 45 - 59 mL/min/1.73m2 Moderately to severely decreased 30 - 44 mL/min/1.73m2 Severely decreased 15 - 29 mL/min/1.73m2 Kidney Failure < 15 mL/min/1.73m2 *Relative to young adult level Estimated glomerular filtration rate is determined by the 2020 CKD-EPI equation recommended by the National Kid[employer] (A Unifying Approach to GFR Estimation: Recommendations of the NKF-ASK Task Force on Reassessing the Inclusion of Race in Diagnosing Kidney Disease, JASN 2020). The CKD-EPI equation should not be used for patients with unstable renal function and has not been validated in children and those over 70. Current interpretive data was last reviewed 2021. Testing performed by: [address] [address] Blood 12/19/2024 11:0 3 AM CDT 12/19/2024 11:15 AM CDT us Tom Lewis DO LAB BLOOD ORDERABLES Final R esult HECTOR [address] [facility] Department [place] [address] * Differential, auto (12/19/2024 11:03 AM CDT) Neutrophil abs 2.91 1.50 - 6.50 K/cumm Comment:Testing performed by : [address] [address] Imm gran abs 0.01 0.00 - 0.10 K/cumm HECTOR Comment:Testing performed by : [address] [address] Lymphocyte abs 0.84 0.80 - 3.30 K/cumm HECTOR Comment:Testing performed by : [address] [address] Monocyte abs 0.63 0.20 - 0.80 K/cumm HECTOR Comment:Testing performed by : [address] [address] Eosinophil abs 0.18 0.00 - 0.50 K/cumm HECTOR Comment:Testing performed by : [address] [address] Basophil abs 0.04 0.00 - 0.10 K/cumm HECTOR Comment:Testing performed by : [address] [address] Neutrophil pct 63.1 % HECTOR Comment: Interpretive Data Percent cell count reference ranges are not reported, since discordance with absolute values may lead to misinterpretation of CBC data. Current Interpretive Data was last revised on 2017. Testing performed by: [address] [address] Imm gran pct 0.2 % [facility] Comment: Interpretive Data Percent cell count reference ranges are not reported, since discordance with absolute values may lead to misinterpretation of CBC data. Current Interpretive Data was last revised on 2017. Testing performed by: [address] [address] Lymphocyte pct 18.2 % [facility] Comment: Interpretive Data Percent cell count reference ranges are not reported, since discordance with absolute values may lead to misinterpretation of CBC data. Current Interpretive Data was last revised on 2017. Testing performed by: [address] [address] Monocyte pct 13.7 % [facility] Comment: Interpretive Data Percent cell count reference ranges are not reported, since discordance with absolute values may lead to misinterpretation of CBC data. Current Interpretive Data was last revised on 2017. Testing performed by: [address] [address] Eosinophil pct 3.9 % [facility] Comment: Interpretive Data Percent cell count reference ranges are not reported, since discordance with absolute values may lead to misinterpretation of CBC data. Current Interpretive Data was last revised on 2017. Testing performed by: [address] [address] Basophil pct 0.9 % [facility] Comment: Interpretive Data Percent cell count reference ranges are not reported, since discordance with absolute values may lead to misinterpretation of CBC data. Current Interpretive Data was last revised on 2017. Testing performed by: [address] [address] Blood 12/19/2024 11:0 3 AM CDT 12/19/2024 11:15 AM CDT us Tom Lewis DO LAB BLOOD ORDERABLES Final R esult [facility]ECTOR [address] [facility] Department [place] [address] * (ABNORMAL) Iron profile w/ IBC (12/19/2024 11:03 AM CDT) [facility] Iron 58 50 - 150 mcg/dL Comment:Testing performed by : [address] [address] TIBC 373 250 - 400 mcg/dL HECTOR Comment:Testing performed by : [address] [address] Transferrin saturation 16(L) 20 - 50 % HECTOR Comment:Testing performed by : [address] [address] Blood 12/19/2024 11:0 3 AM CDT 12/19/2024 12:43 PM CDT Tom Lewis DO LAB BLOOD ORDERABLES Final R esult Performing Organization Address City/State/[facility] Co de Phone Number HECTOR [address] [facility] Department [place] [address] * (ABNORMAL) CBC with auto differential (12/19/2024 11:03 AM CDT) [facility] WBC 4.61 3.80 - 9.90 K/cumm Comment:Testing performed by : [address] [address] Hgb 13.9 13.0 - 17.5 g/dL HECTOR DUNCAN Comment:Testing performed by : [address] [address] Hct 42.0 38.9 - 50.3 % HECTOR DUNCAN Comment:Testing performed by : [address] [address] Plt 148(L) 150 - 400 K/cumm HECTOR DUNCAN Comment:Testing performed by : [address] [address] MPV 9.4 9.1 - 12.3 fL HECTOR DUNCAN Comment:Testing performed by : [address] [address] RBC 5.11 4.30 - 5.80 M/cumm HECTOR Comment:Testing performed by : [address] [address] MCV 82.2 81.3 - 96.4 fL HECTOR Comment:Testing performed by : [address] [address] MCH 27.2 27.1 - 33.3 pg HECTOR Comment:Testing performed by : [address] [address] MCHC 33.1 32.3 - 35.7 g/dL HECTOR Comment:Testing performed by : [address] [address] RDW CV 17.8(H) 11.1 - 14.9 % HECTOR Comment:Testing performed by : [address] [address] RDW SD 52.7(H) 35.7 - 48.1 fL HECTOR Comment:Testing performed by : [address] [address] NRBC abs 0.00 0.00 - 0.01 K/cumm HECTOR Comment:Testing performed by : [address] [address] ANC Prelim 2.91 1.50 - 6.50 K/cumm HECTOR Comment: Interpretive Data The rapid ANC is a preliminary automated count and may vary from the final ANC (Neut Abs) reported in the WBC differential that follows. Current interpretive data was last revised 2024. Testing performed by: [address] [address] Blood 12/19/2024 11:0 3 AM CDT 12/19/2024 11:15 AM CDT us Tom Lewis DO LAB BLOOD ORDERABLES Final R esult HECTOR [address] [facility] Department [place] [address] * Ferritin (12/19/2024 11:03 AM CDT) Ferritin 34 30 - 400 ng/mL Comment:Testing performed by : [address] [address] Blood 12/19/2024 11:0 3 AM CDT 12/19/2024 12:43 PM CDT Tom Lewis DO LAB BLOOD ORDERABLES Final R esult [facility] [address] [facility] Department [place] [address] * Comprehensive metabolic panel (12/19/2024 11:03 AM CDT) Sodium 138 135 - 145 mmol/L Comment:Testing performed by : [address] [address] Potassium, pl 4.4 3.3 - 4.9 mmol/L HECTOR Comment:Testing performed by : [address] [address] Chloride 101 97 - 110 mmol/L HECTOR Comment:Testing performed by : [address] [address] CO2 28 22 - 32 mmol/L HECTOR Comment:Testing performed by : [address] [address] Anion gap 9 2 - 15 mmol/L HECTOR Comment:Testing performed by : [address] [address] BUN 10 6 - 25 mg/dL HECTOR Comment:Testing performed by : [address] [address] Creatinine 0.80 0.80 - 1.30 mg/dL HECTOR Comment:Testing performed by : [address] [address] Glucose 141 70 - 199 mg/dL HECTOR Comment: Interpretive Data Fasting glucose >/= 126 mg/dl is diagnostic for diabetes. Fasting is defined as no caloric intake for at least 8 hours. Fasting glucose between 100 mg/dl to 125 mg/dl is diagnostic of prediabetes. In a patient with classic symptoms of hyperglycemia or hyperglycemic crisis, a random glucose >/= 200 mg/dl is diagnostic for diabetes. In the absence of unequivocal hyperglycemia, results should be confirmed by repeat testing. The classification and Diagnosis of Diabetes Diabetes Care 202; 46: S19-S40. Current interpretive data was last revised 2022. Testing performed by: [address] [address] Calcium 9.4 8.5 - 10.3 mg/dL HECTOR Comment:Testing performed by : [address] [address] Bilirubin, total 0.8 0.1 - 1.2 mg/dL HECTOR Comment:Testing performed by : [address] [address] Protein, pl 6.7 6.5 - 8.5 g/dL HECTOR Comment:Testing performed by : [address] [address] Albumin 4.3 3.5 - 5.0 g/dL HECTOR Comment:Testing performed by : [address] [address] Alk phos 71 40 - 130 Units/L HECTOR Comment:Testing performed by : [address] [address] ALT 32 7 - 55 Units/L HECTOR Comment:Testing performed by : [address] [address] AST 26 10 - 50 Units/L HECTOR Comment:Testing performed by : [address] [address] Blood 12/19/2024 11:0 3 AM CDT 12/19/2024 11:15 AM CDT us Tom Lewis DO LAB BLOOD ORDERABLES Final R esult HECTOR [address] [facility] Department [place] [address] * TRANSESOPHAGEAL ECHO (LISSA) W DOPPLER/CF WO CONTRAST (12/09/2024 9:38 AM CDT) Estimated EF 40 % CONS SCIMAGE Anatomical Region Laterality Modality Echocardiography 12/09/2024 9:01 AM CDT Narrative 12/09/2024 9:00 PM CDT [facility] [address] [place] [address] TRANSESOPHAGEAL ECHOCARDIOGRAM Patient Name: OLEGARIO SHEFFIELD : 1955 (69y 3m) Gender: M Study Date: 12/09/2024 09:01:35 AM Ht(Inch): 76 Wt(Lb): 342.99 BSA: 2.89 Hand Clerical Verifier: ST Mathews Provider: MAURICIO HENRY BMI: 41.75 BP: 122/81 Ref Provider: MAURICIO HENRY - PROCEDURES: Transesophageal Echo Report: Transesophageal echocardiogram including 2D imaging, spectral doppler and color doppler was performed in the cardiac catheterization laboratory. The procedure was monitored with automatic blood pressure monitoring, ECG tracings, and pulse oximetry. Sedation was achieved by anesthesia using Propofol IV. The transesophageal probe was placed in the esophagus posterior to the heart without any complications. The patient tolerated the procedure well. INDICATIONS: I48.19 Other persistent atrial fibrillation. MEASUREMENTS: 2D/MM Value Range Estimated EF 40 % 2D/MM Value Range - FINDINGS: BP: Blood pressure: 122/81 mmHg. Left Ventricle: The study quality is inadequate for detailed regional wall motion assessment. Moderate left ventricular systolic dysfunction. Ejection Fraction is estimated to be 40 %. Mild enlargement of left ventricle. Right Ventricle: Normal right ventricular size. Normal right ventricular systolic function. Left Atrium: There is moderate enlargement of the left atrium. LA Appendage: No ROBERT thrombus seen. Right Atrium: There is moderate enlargement of the right atrium. Atrial Septum: Normal atrial septum. Saline contrast study negative for R to L shunt. Mitral Valve: Normal appearance of the mitral valve. Mild mitral valve regurgitation. There is no evidence for significant mitral stenosis. Aortic Valve: Trileaflet aortic valve. There is mild aortic valve regurgitation. No aortic stenosis. Tricuspid Valve: Normal appearance of the tricuspid valve. TR envelope inadequate to estimate RVSP. There is mild tricuspid regurgitation. Pulmonic Valve: Normal appearing pulmonic valve. No pulmonic stenosis. No evidence of pulmonic regurgitation. Pericardium: No pericardial effusion. Aorta: Mild aortic root dilatation. Normal size descending thoracic aorta. Ascending aorta is markedly dilated. Pulmonary Artery: Moderate enlargement of the pulmonary artery. CONCLUSIONS: 1. The study quality is inadequate for detailed regional wall motion assessment. Moderate left ventricular systolic dysfunction. Ejection Fraction is estimated to be 40 %. Mild enlargement of left ventricle. 2. Normal right ventricular size. Normal right ventricular systolic function. 3. There is moderate enlargement of the left atrium. 4. There is moderate enlargement of the right atrium. 5. Mild aortic root dilatation. Normal size descending thoracic aorta. Ascending aorta is markedly dilated. 6. Moderate enlargement of the pulmonary artery. Electronically Signed By: Yony ibarra 12/09/2024 8:59:52 PM CDT Procedure Note Yony Castro MD - 12/09/2024 [facility] [address] [place] [address] TRANSESOPHAGEAL ECHOCARDIOGRAM Patient Name: OLEGARIO SHEFFIELD : 1955 (69y 3m) Gender: M Study Date: 12/09/2024 09:01:35 AM Ht(Inch): 76 Wt(Lb): 342.99 BSA: 2.89 Hand Clerical Verifier: ST Mathews Provider: MAURICIO HENRY BMI: 41.75 BP: 122/81 Ref Provider: MAURICIO HENRY - PROCEDURES: Transesophageal Echo Report: Transesophageal echocardiogram including 2Dimaging, spectral doppler and color doppler was performed in the cardiaccatheterization laboratory. The procedure was monitored with automatic blood pressuremonitoring, ECG tracings, and pulse oximetry. Sedation was achieved by anesthesia usingPropofol IV. The transesophageal probe was placed in the esophagus posterior to the heartwithout any complications. The patient tolerated the procedure well. INDICATIONS: I48.19 Other persistent atrial fibrillation. MEASUREMENTS: 2D/MM Value Range Estimated EF 40 % 2D/MM Value Range - FINDINGS: BP: Blood pressure: 122/81 mmHg. Left Ventricle: The study quality is inadequate for detailed regional wallmotion assessment. Moderate left ventricular systolic dysfunction. EjectionFraction is estimated to be 40 %. Mild enlargement of left ventricle. Right Ventricle: Normal right ventricular size. Normal right ventricularsystolic function. Left Atrium: There is moderate enlargement of the left atrium. LA Appendage: No ROBERT thrombus seen. Right Atrium: There is moderate enlargement of the right atrium. Atrial Septum: Normal atrial septum. Saline contrast study negative for Rto L shunt. Mitral Valve: Normal appearance of the mitral valve. Mild mitral valveregurgitation. There is no evidence for significant mitral stenosis. Aortic Valve: Trileaflet aortic valve. There is mild aortic valveregurgitation. No aortic stenosis. Tricuspid Valve: Normal appearance of the tricuspid valve. TR envelopeinadequate to estimate RVSP. There is mild tricuspid regurgitation. Pulmonic Valve: Normal appearing pulmonic valve. No pulmonic stenosis. Noevidence of pulmonic regurgitation. Pericardium: No pericardial effusion. Aorta: Mild aortic root dilatation. Normal size descending thoracic aorta.Ascending aorta is markedly dilated. Pulmonary Artery: Moderate enlargement of the pulmonary artery. CONCLUSIONS: 1. The study quality is inadequate for detailed regional wall motionassessment. Moderate left ventricular systolic dysfunction. Ejection Fraction is estimated yair 40 %. Mild enlargement of left ventricle. 2. Normal right ventricular size. Normal right ventricular systolicfunction. 3. There is moderate enlargement of the left atrium. 4. There is moderate enlargement of the right atrium. 5. Mild aortic root dilatation. Normal size descending thoracic aorta.Ascending aorta is markedly dilated. 6. Moderate enlargement of the pulmonary artery. Electronically Signed By: Yony Castro MD mobap 12/09/2024 8:59:52 PM CDT us Mauricio Henry MD CV ECHO PROCEDURES Final Result * CT Heart Morphology W Contrast (12/09/2024 7:46 AM CDT) Anatomical Region Laterality Modality Chest N/A Computed Tomogra phy 12/09/2024 10:3 8 AM CDT Impressions 12/09/2024 11:03 AM CDT 1. Left atrial appendage measurements for placement of occlusion device as described. 2. No evidence of left atrial appendage thrombus. Dictated by: Cindy Cervantes M.D. The radiology attending physician has personally reviewed this study, and had reviewed and/or edited this written report and agrees with it. Electronically signed by: José Antonio Thrasher M.D., MPH Narrative 12/09/2024 11:03 AM CDT HISTORY: 69-year-old male with hypertension, obstructive sleep apnea, and atrial fibrillation (status repeated DCCV and post ablation x 2 - 2015, 2018) who is undergoing evaluation for left atrial appendage closure device. Measurements in preparation for left atrial appendage occlusion device placement. COMPARISON: None TECHNIQUE: Heart CT performed during administration of 118 mL of Optiray 350, intravenously per pulmonary vein protocol. Images were transferred to an independent workstation for additional 3D post-processing. FINDINGS: Left atrial appendage: Ostium: * Area 6.67 cm squared, * Circumference 9.51 cm, * Diameter 32.5 x 26.7 mm. Landing Zone * Area 4.97 cm squared, * Circumference 8.44 cm, * Diameter 28.4 x 22.2 mm. Left atrial appendage depth: 15 mm Left atrial appendage length: 51 mm Left atrial appendage shape: Chicken wing On initial imaging, there is slow flow resulting in incomplete opacification of the left atrial appendage. On 82nd delayed imaging, the left atrial appendage become well-opacified and there is No evidence of left atrial appendage thrombus. Left atrial diameter (atrial diastole): 65 mm Interatrial septum measures 8.9 mm thick and is free of device or thrombus. Esophagus lies immediately posterior to the Left Inferior pulmonary vein. Other findings: Noncalcified, fissural lymph node (less than 6 mm). No areas of high-grade stenosis in the left or right coronary systems. Calcification of the thoracic aorta. Mild thickening of the esophagus. Procedure Note José Antonio Thrasher MD - 12/09/2024 HISTORY: 69-year-old male with hypertension, obstructive sleep apnea, and atrial fibrillation (status repeated DCCV and post ablation x 2 - 2015, 2017) who is undergoing evaluation for left atrial appendage closure device. Measurements in preparation for left atrial appendage occlusion device placement. COMPARISON: None TECHNIQUE: Heart CT performed during administration of 118 mL of Optiray 350, intravenously per pulmonary vein protocol. Images were transferred to an independent workstation for additional 3D post-processing. FINDINGS: Left atrial appendage: Ostium: * Area 6.67 cm squared, * Circumference 9.51 cm, * Diameter 32.5 x 26.7 mm. Landing Zone * Area 4.97 cm squared, * Circumference 8.44 cm, * Diameter 28.4 x 22.2 mm. Left atrial appendage depth: 15 mm Left atrial appendage length: 51 mm Left atrial appendage shape: Chicken wing On initial imaging, there is slow flow resulting in incomplete opacification of the left atrial appendage. On 82nd delayed imaging, the left atrial appendage become well-opacified and there is No evidence of left atrial appendage thrombus. Left atrial diameter (atrial diastole): 65 mm Interatrial septum measures 8.9 mm thick and is free of device or thrombus. Esophagus lies immediately posterior to the Left Inferior pulmonary vein. Other findings: Noncalcified, fissural lymph node (less than 6 mm). No areas of high-grade stenosis in the left or right coronary systems. Calcification of the thoracic aorta. Mild thickening of the esophagus. IMPRESSION: 1. Left atrial appendage measurements for placement of occlusion device as described. 2. No evidence of left atrial appendage thrombus. Dictated by: Cindy Cervantes M.D. The radiology attending physician has personally reviewed this study, and had reviewed and/or edited this written report and agrees with it. Electronically signed by: José Antonio Thrasher M.D., MPH us Mauricio Henry MD IMG CT PROCEDURES Final Result * Differential, auto (11/14/2024 12:28 PM CDT) Neutrophil abs 2.28 1.50 - 6.50 K/cumm Comment:Testing performed by : [address] [address] Imm gran abs 0.01 0.00 - 0.10 K/cumm [facility] Comment:Testing performed by : [address], [place]., [address] Lymphocyte abs 0.83 0.80 - 3.30 K/cumm [facility] Comment:Testing performed by : [address] [address] Monocyte abs 0.57 0.20 - 0.80 K/cumm [facility] Comment:Testing performed by : [address] [address] Eosinophil abs 0.16 0.00 - 0.50 K/cumm [facility] Comment:Testing performed by : [address] [address] Basophil abs 0.04 0.00 - 0.10 K/cumm [facility] Comment:Testing performed by : [address] [address] Neutrophil pct 58.6 % [facility] Comment: Interpretive Data Percent cell count reference ranges are not reported, since discordance with absolute values may lead to misinterpretation of CBC data. Current Interpretive Data was last revised on 2017. Testing performed by: [address] [address] Imm gran pct 0.3 % [facility] Comment: Interpretive Data Percent cell count reference ranges are not reported, since discordance with absolute values may lead to misinterpretation of CBC data. Current Interpretive Data was last revised on 2017. Testing performed by: [address] [address] Lymphocyte pct 21.3 % [facility] Comment: Interpretive Data Percent cell count reference ranges are not reported, since discordance with absolute values may lead to misinterpretation of CBC data. Current Interpretive Data was last revised on 2017. Testing performed by: [address] [address] Monocyte pct 14.7 % [facility] Comment: Interpretive Data Percent cell count reference ranges are not reported, since discordance with absolute values may lead to misinterpretation of CBC data. Current Interpretive Data was last revised on 2017. Testing performed by: [address] [address] Eosinophil pct 4.1 % [facility] Comment: Interpretive Data Percent cell count reference ranges are not reported, since discordance with absolute values may lead to misinterpretation of CBC data. Current Interpretive Data was last revised on 2017. Testing performed by: [address] [address] Basophil pct 1.0 % [facility] Comment: Interpretive Data Percent cell count reference ranges are not reported, since discordance with absolute values may lead to misinterpretation of CBC data. Current Interpretive Data was last revised on 2017. Testing performed by: [address] [address] Blood 11/14/2024 12:2 8 PM CDT 11/14/2024 12:28 PM CDT us Tom Lewis DO LAB BLOOD ORDERABLES Final R esult [facility] [address] [facility] Department [place] [address] * (ABNORMAL) Iron profile w/ IBC (11/14/2024 12:28 PM CDT) Iron 204(H) 50 - 150 mcg/dL Comment:Testing performed by : [address] [address] TIBC 412(H) 250 - 400 mcg/dL [facility] Comment:Testing performed by : [address] [address] Transferrin saturation 50 20 - 50 % [facility] Comment:Testing performed by : [address] [address] Blood 11/14/2024 12:2 8 PM CDT 11/14/2024 1:54 PM CDT us Tom Lewis DO LAB BLOOD ORDERABLES Final R esult [facility] [address] [facility] Department [place] [address] * (ABNORMAL) CBC with auto differential (11/14/2024 12:28 PM CDT) WBC 3.89 3.80 - 9.90 K/cumm Comment:Testing performed by : [address] [address] Hgb 12.3(L) 13.0 - 17.5 g/dL [facility] Comment:Testing performed by : [address] [address] Hct 40.6 38.9 - 50.3 % [facility] Comment:Testing performed by : [address] [address] Plt 150 150 - 400 K/cumm [facility] Comment:Testing performed by : [address] [address] MPV 8.8(L) 9.1 - 12.3 fL [facility] Comment:Testing performed by : [address] [address] RBC 5.19 4.30 - 5.80 M/cumm [facility] Comment:Testing performed by : [address] [address] MCV 78.2(L) 81.3 - 96.4 fL [facility] Comment:Testing performed by : [address] [address] MCH 23.7(L) 27.1 - 33.3 pg [facility] Comment:Testing performed by : [address] [address] MCHC 30.3(L) 32.3 - 35.7 g/dL [facility] Comment:Testing performed by : [address] [address] RDW CV 23.5(H) 11.1 - 14.9 % [facility] Comment:Testing performed by : [address] [address] RDW SD 65.6(H) 35.7 - 48.1 fL [facility] Comment:Testing performed by : [address] [address] NRBC abs 0.00 0.00 - 0.01 K/cumm [facility] Comment:Testing performed by : [address] [address] ANC Prelim 2.28 1.50 - 6.50 K/cumm [facility] Comment: Interpretive Data The rapid ANC is a preliminary automated count and may vary from the final ANC (Neut Abs) reported in the WBC differential that follows. Current interpretive data was last revised 2024. Testing performed by: [address] [address] Blood 11/14/2024 12:2 8 PM CDT 11/14/2024 12:28 PM CDT us Tom Lewis DO LAB BLOOD ORDERABLES Final R esult [facility] [address] [facility] Department [place] [address] * Ferritin (11/14/2024 12:28 PM CDT) [facility] Ferritin 32 30 - 400 ng/mL Comment:Testing performed by : [address], [address] Blood 11/14/2024 12:2 8 PM CDT 11/14/2024 1:54 PM CDT us Tom Lewis DO LAB BLOOD ORDERABLES Final R esult [facility] [address] [facility] Department [place] [address] * Differential, auto (10/17/2024 12:11 PM CDT) Neutrophil abs 1.5 1.5 - 6.5 K/cumm Comment:Testing performed by : [address] [address] Imm gran abs 0.0 0.0 - 0.1 K/cumm [facility] Comment:Testing performed by : [address] [address] Lymphocyte abs 1.0 0.8 - 3.3 K/cumm [facility] Comment:Testing performed by : [address] [address] Monocyte abs 0.5 0.2 - 0.8 K/cumm [facility] Comment:Testing performed by : [address] [address] Eosinophil abs 0.2 0.0 - 0.5 K/cumm [facility] Comment:Testing performed by : [address] [address] Basophil abs 0.0 0.0 - 0.1 K/cumm [facility] Comment:Testing performed by : [address] [address] Neutrophil pct 45.8 % [facility] Comment: Interpretive Data Percent cell count reference ranges are not reported, since discordance with absolute values may lead to misinterpretation of CBC data. Current Interpretive Data was last revised on 2017. Testing performed by: [address] [address] Imm gran pct 0.3 % [facility] Comment: Interpretive Data Percent cell count reference ranges are not reported, since discordance with absolute values may lead to misinterpretation of CBC data. Current Interpretive Data was last revised on 2017. Testing performed by: [address] [address] Lymphocyte pct 31.0 % [facility] Comment: Interpretive Data Percent cell count reference ranges are not reported, since discordance with absolute values may lead to misinterpretation of CBC data. Current Interpretive Data was last revised on 2017. Testing performed by: [address] [address] Monocyte pct 15.8 % [facility] Comment: Interpretive Data Percent cell count reference ranges are not reported, since discordance with absolute values may lead to misinterpretation of CBC data. Current Interpretive Data was last revised on 2017. Testing performed by: [address] [address] Eosinophil pct 5.9 % [facility] Comment: Interpretive Data Percent cell count reference ranges are not reported, since discordance with absolute values may lead to misinterpretation of CBC data. Current Interpretive Data was last revised on 2017. Testing performed by: [address] [address] Basophil pct 1.2 % [facility] Comment: Interpretive Data Percent cell count reference ranges are not reported, since discordance with absolute values may lead to misinterpretation of CBC data. Current Interpretive Data was last revised on 2017. Testing performed by: [address] [address] Blood 10/17/2024 12:1 1 PM CDT 10/17/2024 12:12 PM CDT us Tom Lewis DO LAB BLOOD ORDERABLES Final R esult [facility] [address] [facility] Department [place] [address] * (ABNORMAL) CBC with auto differential (10/17/2024 12:11 PM CDT) WBC 3.2(L) 3.8 - 9.9 K/cumm Comment:Testing performed by : [address] [address] Hgb 10.3(L) 13.0 - 17.5 g/dL [facility] Comment:Testing performed by : [address] [address] Hct 36.1(L) 38.9 - 50.3 % [facility] Comment:Testing performed by : [address] [address] Plt 192 150 - 400 K/cumm [facility] Comment:Testing performed by : [address] [address] MPV 9.2 9.1 - 12.3 fL [facility] Comment:Testing performed by : [address], [address] RBC 5.12 4.30 - 5.80 M/cumm [facility] Comment:Testing performed by : [address] [address] MCV 70.5(L) 81.3 - 96.4 fL [facility] Comment:Testing performed by : [address] [address] MCH 20.1(L) 27.1 - 33.3 pg [facility] Comment:Testing performed by : [address] [address] MCHC 28.5(L) 32.3 - 35.7 g/dL [facility] Comment:Testing performed by : [address] [address] RDW CV 21.3(H) 11.1 - 14.9 % [facility] Comment:Testing performed by : [address] [address] RDW SD 52.5(H) 35.7 - 48.1 fL [facility] Comment:Testing performed by : [address] [address] NRBC abs 0.00 0.00 - 0.01 K/cumm [facility] Comment:Testing performed by : [address], [address] Blood 10/17/2024 12:1 1 PM CDT 10/17/2024 12:12 PM CDT us Tom Lewis DO LAB BLOOD ORDERABLES Final R esult [facility] [address] [facility] Department [place] [address] * COLONOSCOPY (10/12/2020 3:51 PM CDT) Anatomical Region Laterality Modality Other Narrative Procedure Note Dharmesh Paul MD PhD - 10/12/2020 3:51 PM CDT ENDOSCOPY LAB Patient Name: Olegario Sheffield Procedure Date: 10/12/2020 3:51 PM Date of : 1955 Admit Type: Outpatient Age: 65 Gender: Male Attending MD: Dharmesh Paul MD,PHD Room: [facility] ENDOSCOPY ROOM 03 Note Status: Finalized Procedure: Colonoscopy Indications: Iron deficiency anemia Providers: Dharmesh Paul MD, PHD Referring MD: Julio Lockhart.N.P. Medicines: Monitored Anesthesia Care Complications: No immediate [...] The scope was passed under direct vision.The [id number] was introduced through the anusand advanced to [...] inthe days following this procedure, please call [facility] at [phone] or [phone] to speak to my visitor use assistant. After hours and weekends, please call [phone] and ask for the GI fellow inventory control planner.Please tell them that Dr. Paul did your [...] Most Recently Relevant to Health Maintenance Insurance [facility] [employer] Address: [address] [address] [place] [address] [facility] [employer] [facility] Address: [address] [address] [place] [address] Advance Directives For more information, please contact: [phone] * Full Code (Latest Code Status on File) Date Activated Date Inactivated Comments 10/12/2020 2:15 PM 10/12/2020 9:37 PM * Full Code Date Activated Date Inactivated Comments 05/02/2018 5:10 PM 05/03/2018 3:03 PM Care Teams Automatic Chief Relationship Specialty Start Date End Date Ariana Macario NP [address] [facility] [address] [place] [address] PCP - General Nurse Practitioner 07/05/24 Tom Lewis DO [address] [place] [address] MEDICAL ONCOLOGY, [facility] [address] [place] [address] Medical Oncologist/Hematologi Hematology and Oncology 08/26/20 Dharmesh Paul MD PhD [address] [place] [address] Referring Physician Gastroenterology 12/31/20 Yony Hill MD [address] [place], [place] [id number] Consulting Physician Cardiology 04/14/22 Ramin Franco MD [address] [place] [address] Referring Physician Gastroenterology 06/03/24 Agustin Stroud MD [address] [facility] [address] [place] [address] Consulting Physician Cardiothoracic Surgery 12/10/24
--- OUTSIDE RECORDS SUMMARY | 2025-01-02 12:27 | XMS_ITS | Clinical Summary ---
Author Organization [facility] Building C Address [address] [place] [address] Care Team Providers Care Sewer And Inspector Name Role Phone Joshua Tom Navarrete DO Unavailable [phone] Dharmesh Paul MD PhD Unavailable [phone] Yony Hill MD Unavailable [phone] Ramin Franco MD Unavailable + Ariana Macario NP Primary Care Provider [phone] Agustin Stroud MD Unavailable [phone] Allergies Active Allergy Reactions Criticality Noted Date [...] disease. 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 I added low-dose amlodipine to his regimen. Assessment & Plan (09/18/2017 12:55 PM NURSE WOUND): Risk factor for stroke. Remains anticoagulated. Assessment & Plan (03/06/2017 1:17 PM CDT): Risk factor for stroke. Remains anticoagulated.. Anticoagulation management encounter 03/06/2017 Assessment & Plan (11/15/2019 3:23 PM CDT): I recommended that the patient remain anticoagulated for thromboprophylaxis. He is presently tolerating Xarelto without difficulty. Assessment & Plan (06/18/2018 3:18 PM NURSE WOUND): The patient has a [id number] score of 1 (annualized risk of stroke 1.2 %). I recommended that the patient remain anticoagulated for thromboprophylaxis. Assessment & Plan (09/18/2017 12:55 PM NURSE WOUND): He remains anticoagulated on Xarelto 20 mg [...] expectantly. Assessment & Plan (09/18/2017 12:59 PM NURSE WOUND): He is post ablation of his atrial [...] (08/29/2019): Added automatically from request for surgery [id number] On amiodarone therapy 08/21/20192023 Encounters Date Type Department Care Team Description 12/19/2024 11:45 AM CDT Office Visit [facility] Oncology [address] [place] [address] [address] [place] [phone] Tom Lewis DO Iron deficiency anemia, unspecified iron deficiency anemia type (Primary Dx) 12/19/2024 11:15 AM CDT Lab [address] [address] Iron deficiency anemia, unspecified iron deficiency anemia type 12/10/2024 Documentation Cardiovascular and Thoracic Surgery [address] [place] [address] Meaghan Desai 12/09/2024 9:10 AM CDT Anesthesia Event [facility] [address] [place] [phone] Roderick Graham MD Strand, Sarah B., MD 12/09/2024 7:56 AM CDT - 12/09/2024 11:59 PM CDT Hospital Encounter [facility] [address] [place] [phone] Yony Castro MD Persistent atrial fibrillation (HCC) Discharge Disposition: Discharge to home or self care 12/09/2024 6:08 AM CDT - 12/09/2024 11:59 PM CDT Hospital Encounter [facility] - Imaging [address] [place] [phone] Persistent atrial fibrillation (HCC) Discharge Disposition: Discharge to home or self care 11/14/2024 12:45 PM CDT Infusion [address] [phone] Iron deficiency anemia due to chronic blood loss (Primary Dx); Iron deficiency anemia, unspecified iron deficiency anemia type 11/14/2024 12:15 PM CDT Lab [facility] at [address] [address] Iron deficiency anemia, unspecified iron deficiency anemia type 10/31/2024 Orders Only [facility] Medical [facility] Cardiology [address] [place] [address] ProviderMurali MD 10/30/2024 11:45 AM CDT Office Visit [facility] Cardiology at [address] [place] [phone] Yony Hill MD Persistent atrial fibrillation (HCC) (Primary Dx) 10/30/2024 Telephone [facility] [address] [place] [phone] Yony Hill MD [facility] Scheduling 10/17/2024 12:30 PM CDT Infusion [facility] at [address] [place] [phone] Iron deficiency anemia due to chronic blood loss (Primary Dx); Iron deficiency anemia, unspecified iron deficiency anemia type 10/17/2024 12:00 PM CDT Lab [facility] at [address] [address] Iron deficiency anemia, unspecified iron deficiency anemia type from Last 3 Months Immunizations Immunization Administration Dates Next Due Influenza, Unspecified 04/12/2023 Pfizer SARS-CoV-2 Monovalent Vaccination (12+ Yrs) PURPLE 11/04/2020,10/14/2020 Surgical History Surgery Date Site/Laterality Comments HERNIA REPAIR Bilateral UMBILICAL HERNIA REPAIR 07/31/2005 - 07/30/2006 COLONOSCOPY 07/31/2020 - 07/30/2021 Medical History Medical History Date Comments Hypertension Paroxysmal A-fib (HCC) s/p multi ple cardioversions, ablation 2015, 2017, 09/2019 PVC (premature [...] on file Legal Sex Male 12:26 PM NURSE WOUND Gender Identity Not on file Sexual Orientation [...] 12/09/2024 8:26 AM CDT Plan of Treatment Health Maintenance Due Date Last Done Comments Hepatitis C Screening 1955 Prostate Cancer Screening-PSA 1955 DTaP/Tdap/Td Vaccine (1 - Tdap) 1968 Hepatitis B Screening 1975 Pneumococcal vaccine 65+ (1 of 2 - PCV) 1976 Zoster Vaccine (1 of 2) 1976 Depression Screening 03/27/2019 03/27/2018 Covid-19 Vaccine (3 - Pfizer risk series) 12/02/2020 11/04/2020, 10/14/2020 Well Visit 65+ 2022 Influenza Vaccine (Season Ended) 2025 04/12/20 23 Fall Risk Assessment 12/09/2025 12/09/2024, 03/27/20 18 Colon Cancer Screening-Colonoscopy 10/12/20302020 Colon Cancer Screening-CT Colonography Discontinued Colon Cancer Screening-DNA Stool Discontinued 10/13/19 Colon Cancer Screening-FIT Discontinued 10/12/2020 Colon Cancer Screening-Sigmoidoscopy Discontinued 09/28 Medical Devices Implanted Type Area Intermediate Card Tender Device Identifier Shelf Expiration Date Model / Serial / Lot [employer] [id number] Vascade 6/7fr Bioabsorbable Vascular System Compression Collagen - [id number] - [id number] Implanted:Qty: 1 on 09/30/2019 by José Antonio Shah MD at [facility] Collagen N/A: Vein [employer] 05/08/2021 [id number] [id number] / [id number] / [id number] 09A [employer] [id number] System 6-12fr Mvp Venous Closure Vascade - [id number] - [id number] Implanted:Qty: 1 on 09/30/2019 by José Antonio Shah MD at [facility] Collagen N/A: Vein [employer] 09/16/2021 [id number] [id number] / [id number] 17A / [id number] 17A [employer] [id number] System 6-12fr Mvp Venous Closure Vascade - [id number] - [id number] Implanted:Qty: 1 on 09/30/2019 by José Antonio Shah MD at [facility] Collagen N/A: Vein [employer] 09/16/2021 [id number] [id number] / [id number] 17A / [id number] 17A [employer] [id number] System 6-12fr Mvp Venous Closure Vascade - [id number] - [id number] Implanted:Qty: 1 on 09/30/2019 by José Antonio Shah MD at [facility] Collagen N/A: Vein [employer] 09/16/2021 800-612C- 10U / [id number] 17A / [id number] 17A Procedures Procedure Name Priority Date/Time Associated [...] was last reviewed 2021. Testing performed by: [facility], [address] [place] [address], [place]., [address] Blood 12/19/2024 11:0 3 AM CDT 12/19/2024 11:15 AM CDT Tom Lewis DO LAB BLOOD ORDERABLES Final R esult [facility] [address] [place] [address] [place] [address] * Differential, auto (12/19/2024 11:03 AM CDT) Neutrophil abs 2.91 1.50 - 6.50 K/cumm Comment:Testing performed by : [address] [address] Imm gran abs 0.01 0.00 - 0.10 K/cumm HECTOR Comment:Testing performed by : [address] [address] Lymphocyte abs 0.84 0.80 - 3.30 K/cumm HECTOR Comment:Testing performed by : [address] [address] Monocyte abs 0.63 0.20 - 0.80 K/cumm [facility] Comment:Testing performed by : [address] [address] Eosinophil abs 0.18 0.00 - 0.50 K/cumm HECTOR Comment:Testing performed by : [address] [address] Basophil abs 0.04 0.00 - 0.10 K/cumm [facility] Comment:Testing performed by : [address] [address] Neutrophil pct 63.1 % [facility] Comment: Interpretive Data Percent cell count reference ranges are not reported, since discordance with absolute values may lead to misinterpretation of CBC data. Current Interpretive Data was last revised on 2017. Testing performed by: [address] [address] Imm gran pct 0.2 % [facility] Comment: Interpretive Data Percent cell count reference ranges are not reported, since discordance with absolute values may lead to misinterpretation of CBC data. Current Interpretive Data was last revised on 2017. Testing performed by: [address] [address] Lymphocyte pct 18.2 % [facility] Comment: Interpretive Data Percent cell count reference ranges are not reported, since discordance with absolute values may lead to misinterpretation of CBC data. Current Interpretive Data was last revised on 2017. Testing performed by: [address] [address] Monocyte pct 13.7 % [facility]OR Comment: Interpretive Data Percent cell count reference ranges are not reported, since discordance with absolute values may lead to misinterpretation of CBC data. Current Interpretive Data was last revised on 2017. Testing performed by: [address] [address] Eosinophil pct 3.9 % [facility] Comment: Interpretive Data Percent cell count reference ranges are not reported, since discordance with absolute values may lead to misinterpretation of CBC data. Current Interpretive Data was last revised on 2017. Testing performed by: [address] [address] Basophil pct 0.9 % [facility] Comment: Interpretive Data Percent cell count reference ranges are not reported, since discordance with absolute values may lead to misinterpretation of CBC data. Current Interpretive Data was last revised on 2017. Testing performed by: [address] [address] Blood 12/19/2024 11:0 3 AM CDT 12/19/2024 11:15 AM CDT us Tom Lewis DO LAB BLOOD ORDERABLES Final R esult [facility] [address] [facility] [place] [address] * (ABNORMAL) Iron profile w/ IBC (12/19/2024 11:03 AM CDT) Iron 58 50 - 150 mcg/dL Comment:Testing performed by : [address] [address] TIBC 373 250 - 400 mcg/dL [facility] Comment:Testing performed by : [address] [address] Transferrin saturation 16(L) 20 - 50 % [facility] Comment:Testing performed by : [address] [address] Blood 12/19/2024 11:0 3 AM CDT 12/19/2024 12:43 PM CDT Tom Lewis DO LAB BLOOD ORDERABLES Final R esult [facility] [address] [facility] Department [place] [address] * (ABNORMAL) CBC with auto differential (12/19/2024 11:03 AM CDT) WBC 4.61 3.80 - 9.90 K/cumm Comment:Testing performed by : [address] [address] Hgb 13.9 13.0 - 17.5 g/dL [facility] Comment:Testing performed by : [address] [address] Hct 42.0 38.9 - 50.3 % [facility] Comment:Testing performed by : [address] [address] Plt 148(L) 150 - 400 K/cumm [facility] Comment:Testing performed by : [address] [address] MPV 9.4 9.1 - 12.3 fL [facility] Comment:Testing performed by : [address] [address] RBC 5.11 4.30 - 5.80 M/cumm [facility] Comment:Testing performed by : [address] [address] MCV 82.2 81.3 - 96.4 fL [facility] Comment:Testing performed by : [address] [address] MCH 27.2 27.1 - 33.3 pg [facility] Comment:Testing performed by : [address] [address] MCHC 33.1 32.3 - 35.7 g/dL [facility] [place] Comment:Testing performed by : [address] [address] RDW CV 17.8(H) 11.1 - 14.9 % [facility]ECTOR Comment:Testing performed by : [address] [address] RDW SD 52.7(H) 35.7 - 48.1 fL [facility] [place] Comment:Testing performed by : [address] [address] NRBC abs 0.00 0.00 - 0.01 K/cumm [facility] Comment:Testing performed by : [address] [address] ANC Prelim 2.91 1.50 - 6.50 K/cumm [facility] Comment: Interpretive Data The rapid ANC is a preliminary automated count and may vary from the final ANC (Neut Abs) reported in the WBC differential that follows. Current interpretive data was last revised 2024. Testing performed by: [address] [address] Blood 12/19/2024 11:0 3 AM CDT 12/19/2024 11:15 AM CDT Tom Lewis DO LAB BLOOD ORDERABLES Final R esult Performing Organization Address [facility] Co de Phone Number [address] [place] [place] [address] * Ferritin (12/19/2024 11:03 AM CDT) [facility] Signature Ferritin 34 30 - 400 ng/mL Comment:Testing performed by : [address] [address] Blood 12/19/2024 11:0 3 AM CDT 12/19/2024 12:43 PM CDT Tom Lewis DO LAB BLOOD ORDERABLES Final R esult Performing Organization Address City/[facility]/ZIP Co de Phone Number SHAJ[address] [place] [address] * Comprehensive metabolic panel (12/19/2024 11:03 AM CDT) Sodium 138 135 - 145 mmol/L Comment:Testing performed by : [address] [address] Potassium, pl 4.4 3.3 - 4.9 mmol/L [facility]OR Comment:Testing performed by : [address] [address] Chloride 101 97 - 110 mmol/L [facility] Comment:Testing performed by : [address], [place]., [address] CO2 28 22 - 32 mmol/L [facility] Comment:Testing performed by : [address], [place]., [address] Anion gap 9 2 - 15 mmol/L [facility] Comment:Testing performed by : [address] [address] BUN 10 6 - 25 mg/dL [facility] Comment:Testing performed by : [address], [place]., [address] Creatinine 0.80 0.80 - 1.30 mg/dL [facility] Comment:Testing performed by : [address] [address] Glucose 141 70 - 199 mg/dL [facility] Comment: Interpretive Data Fasting glucose >/= 126 [...] was last revised 2022. Testing performed by: [address], [place]., [address] Calcium 9.4 8.5 - 10.3 mg/dL [facility] Comment:Testing performed by : [address], [place]., [address] Bilirubin, total 0.8 0.1 - 1.2 mg/dL [facility] Comment:Testing performed by : [address] [address] Protein, pl 6.7 6.5 - 8.5 g/dL [facility] Comment:Testing performed by : [address] [address] Albumin 4.3 3.5 - 5.0 g/dL [facility] Comment:Testing performed by : [address] [address] Alk phos 71 40 - 130 Units/L [facility] Comment:Testing performed by : [address] [address] ALT 32 7 - 55 Units/L [facility] Comment:Testing performed by : [address] [address] AST 26 10 - 50 Units/L [facility] Comment:Testing performed by : [address] [address] Blood 12/19/2024 11:0 3 AM CDT 12/19/2024 11:15 AM CDT Tom Lewis DO LAB BLOOD ORDERABLES Final R esult [facility] [address] [facility] [place] [address] * TRANSESOPHAGEAL ECHO (LISSA) W DOPPLER/CF WO CONTRAST (12/09/2024 9:38 AM CDT) Estimated EF 40 % CONS SCIMAGE Anatomical Region Laterality Modality Echocardiography 12/09/2024 9:01 AM CDT Narrative 12/09/2024 9:00 PM CDT [facility] [address] [place] [address] TRANSESOPHAGEAL ECHOCARDIOGRAM Patient Name: OLEGARIO SHEFFIELD : 1955 (69y 3m) Gender: M Study Date: 12/09/2024 09:01:35 AM Ht(Inch): 76 Wt(Lb): 342.99 BSA: 2.89 Software Quality Assurance Analyst: ST Mathews Provider: DELTAKARENNOÉ MAURICIO BMI: 41.75 BP: 122/81 Ref Provider: MAURICIO [...] Castro MD mobap 12/09/2024 8:59:52 PM CDT Procedure Note Yony Castro MD - 12/09/2024 [address] [address] [place] [address] TRANSESOPHAGEAL ECHOCARDIOGRAM Patient Name: OLEGARIO SHEFFIELD : 1955 (69y 3m) Gender: M Study Date: 12/09/2024 09:01:35 AM Ht(Inch): 76 Wt(Lb): 342.99 BSA: 2.89 Software Quality Assurance Analyst: ST Mathews Provider: MAURICIO HENRY BMI: 41.75 [...] By: Yony ibarra 12/09/2024 8:59:52 PM CDT us Mauricio Henry [...] Thrasher M.D., MPH us Mauricio Henry MD IM CT PROCEDURES Final Result * Differential, auto (11/14/2024 12:28 PM CDT) Neutrophil abs 2.28 1.50 - 6.50 K/cumm Comment:Testing performed by : [facility], [address] [place] [address]., [address] Imm gran abs 0.01 0.00 - 0.10 K/cumm HECTOR Comment:Testing performed by : [address], [place]., [address] Lymphocyte abs 0.83 0.80 - 3.30 K/cumm HECTOR Comment:Testing performed by : [address] [address] Monocyte abs 0.57 0.20 - 0.80 K/cumm HECTOR Comment:Testing performed by : [address], [place]., [address] Eosinophil abs 0.16 0.00 - 0.50 K/cumm [facility] Comment:Testing performed by : [address] [address] Basophil abs 0.04 0.00 - 0.10 K/cumm [facility] Comment:Testing performed by : [address] [address] Neutrophil pct 58.6 % [facility] Comment: Interpretive Data Percent cell count reference ranges are not reported, since discordance with absolute values may lead to misinterpretation of CBC data. Current Interpretive Data was last revised on 2017. Testing performed by: [address] [address] Imm gran pct 0.3 % [facility] Comment: Interpretive Data Percent cell count reference ranges are not reported, since discordance with absolute values may lead to misinterpretation of CBC data. Current Interpretive Data was last revised on 2017. Testing performed by: [address] [address] Lymphocyte pct 21.3 % [facility] Comment: Interpretive Data Percent cell count reference ranges are not reported, since discordance with absolute values may lead to misinterpretation of CBC data. Current Interpretive Data was last revised on 2017. Testing performed by: [address] [address] Monocyte pct 14.7 % [facility] Comment: Interpretive Data Percent cell count reference ranges are not reported, since discordance with absolute values may lead to misinterpretation of CBC data. Current Interpretive Data was last revised on 2017. Testing performed by: [address] [place]., [address] Eosinophil pct 4.1 % [facility]ECTOR Comment: Interpretive Data Percent cell count reference ranges are not reported, since discordance with absolute values may lead to misinterpretation of CBC data. Current Interpretive Data was last revised on 2017. Testing performed by: [address] [address] Basophil pct 1.0 % [facility] Comment: Interpretive Data Percent cell count reference ranges are not reported, since discordance with absolute values may lead to misinterpretation of CBC data. Current Interpretive Data was last revised on 2017. Testing performed by: [address] [address] Blood 11/14/2024 12:2 8 PM CDT 11/14/2024 12:28 PM CDT Tom Lewis LAB BLOOD ORDERABLES Final R UShealthrecordult Performing Organization Address [facility] de Phone Number [facility] [address] [facility] [employer] [place], [place] [id number] * (ABNORMAL) Iron profile w/ IBC (11/14/2024 12:28 PM CDT) Iron 204(H) 50 - 150 mcg/dL Comment:Testing performed by : [address] [address] TIBC 412(H) 250 - 400 mcg/dL [facility] Comment:Testing performed by : [address] [address] Transferrin saturation 50 20 - 50 % HECTOR Comment:Testing performed by : [address] [address] Blood 11/14/2024 12:2 8 PM CDT 11/14/2024 1:54 PM CDT Tom Lewis LAB BLOOD ORDERABLES Final R esult Performing Organization Address [facility] Co de Phone Number [facility] [address] [facility] Department [place] [address] * (ABNORMAL) CBC with auto differential (11/14/2024 12:28 PM CDT) [facility] WBC 3.89 3.80 - 9.90 K/cumm Comment:Testing performed by : [address] [address] Hgb 12.3(L) 13.0 - 17.5 g/dL HECTOR Comment:Testing performed by : [address] [address] Hct 40.6 38.9 - 50.3 % [facility]ECTOR Comment:Testing performed by : [address] [address] Plt 150 150 - 400 K/cumm [facility]ECT[facility] Comment:Testing performed by : [address] [address] MPV 8.8(L) 9.1 - 12.3 fL [facility]ECTOR Comment:Testing performed by : [address], [address] RBC 5.19 4.30 - 5.80 M/cumm HECT[facility] Comment:Testing performed by : [address] [address] MCV 78.2(L) 81.3 - 96.4 fL [facility]ECTOR Comment:Testing performed by : [address] [address] MCH 23.7(L) 27.1 - 33.3 pg HECTOR Comment:Testing performed by : [address] [address] MCHC 30.3(L) 32.3 - 35.7 g/dL [facility]ECTOR Comment:Testing performed by : [address] [address] RDW CV 23.5(H) 11.1 - 14.9 % [facility]ECTOR Comment:Testing performed by : [address] [address] RDW SD 65.6(H) 35.7 - 48.1 fL [facility]ECTOR Comment:Testing performed by : [address] [address] NRBC abs 0.00 0.00 - 0.01 K/cumm [facility] Comment:Testing performed by : [address] [address] ANC Prelim 2.28 1.50 - 6.50 K/cumm [facility]ECT[facility] Comment: Interpretive Data The rapid ANC is a preliminary automated count and may vary from the final ANC (Neut Abs) reported in the WBC differential that follows. Current interpretive data was last revised 2024. Testing performed by: [address] [address] Blood 11/14/2024 12:2 8 PM CDT 11/14/2024 12:28 PM CDT Tom Navarrete Joshua LAB BLOOD ORDERABLES Final R esult Performing Organization Address [facility] Co de Phone Number [address] [place] [place] [address] * Ferritin (11/14/2024 12:28 PM CDT) Ferritin 32 30 - 400 ng/mL Comment:Testing performed by : [address] [address] Blood 11/14/2024 12:2 8 PM CDT 11/14/2024 1:54 PM CDT Tom Landon Joshua LAB BLOOD ORDERABLES Final R esult Performing Organization Address City/[facility] Co de Phone Number [address] [place] [place] [address] * Differential, auto (10/17/2024 12:11 PM CDT) Neutrophil abs 1.5 1.5 - 6.5 K/cumm Comment:Testing performed by : [address] [address] Imm gran abs 0.0 0.0 - 0.1 K/cumm HECTOR Comment:Testing performed by : [facility], [address] [place] [address]., [address] Lymphocyte abs 1.0 0.8 - 3.3 K/cumm HECTOR Comment:Testing performed by : [address] [address] Monocyte abs 0.5 0.2 - 0.8 K/cumm HECTOR Comment:Testing performed by : [address] [address] Eosinophil abs 0.2 0.0 - 0.5 K/cumm [facility] Comment:Testing performed by : [address] [address] Basophil abs 0.0 0.0 - 0.1 K/cumm [facility] Comment:Testing performed by : [address] [address] Neutrophil pct 45.8 % [facility] Comment: Interpretive Data Percent cell count reference ranges are not reported, since discordance with absolute values may lead to misinterpretation of CBC data. Current Interpretive Data was last revised on 2017. Testing performed by: [address] [address] Imm gran pct 0.3 % [facility] Comment: Interpretive Data Percent cell count reference ranges are not reported, since discordance with absolute values may lead to misinterpretation of CBC data. Current Interpretive Data was last revised on 2017. Testing performed by: [address] [address] Lymphocyte pct 31.0 % [facility] Comment: Interpretive Data Percent cell count reference ranges are not reported, since discordance with absolute values may lead to misinterpretation of CBC data. Current Interpretive Data was last revised on 2017. Testing performed by: [address] [address] Monocyte pct 15.8 % [facility] Comment: Interpretive Data Percent cell count reference ranges are not reported, since discordance with absolute values may lead to misinterpretation of CBC data. Current Interpretive Data was last revised on 2017. Testing performed by: [address] [place]., [address] Eosinophil pct 5.9 % [facility] Comment: Interpretive Data Percent cell count reference ranges are not reported, since discordance with absolute values may lead to misinterpretation of CBC data. Current Interpretive Data was last revised on 2017. Testing performed by: [address] [address] Basophil pct 1.2 % [facility] Comment: Interpretive Data Percent cell count reference ranges are not reported, since discordance with absolute values may lead to misinterpretation of CBC data. Current Interpretive Data was last revised on 2017. Testing performed by: [address] [address] Blood 10/17/2024 12:1 1 PM CDT 10/17/2024 12:12 PM CDT Tom Lewis DO LAB BLOOD ORDERABLES Final R esult [facility] [place] [address] * (ABNORMAL) CBC with auto differential (10/17/2024 12:11 PM CDT) WBC 3.2(L) 3.8 - 9.9 K/cumm Comment:Testing performed by : [address] [address] Hgb 10.3(L) 13.0 - 17.5 g/dL [facility] Comment:Testing performed by : [address] [address] Hct 36.1(L) 38.9 - 50.3 % [facility] Comment:Testing performed by : [address] [address] Plt 192 150 - 400 K/cumm [facility] Comment:Testing performed by : [address] [address] MPV 9.2 9.1 - 12.3 fL [facility] Comment:Testing performed by : [address] [address] RBC 5.12 4.30 - 5.80 M/cumm [facility] Comment:Testing performed by : [facility], [address] [place] [address]., [address] MCV 70.5(L) 81.3 - 96.4 fL [facility]ECTOR Comment:Testing performed by : [address], [address] MCH 20.1(L) 27.1 - 33.3 pg [facility]ECTOR Comment:Testing performed by : [address], [address] MCHC 28.5(L) 32.3 - 35.7 g/dL [facility]ECTOR Comment:Testing performed by : [address], [address] RDW CV 21.3(H) 11.1 - 14.9 % [facility]ECTOR Comment:Testing performed by : [address], [address] RDW SD 52.5(H) 35.7 - 48.1 fL [facility]ECT[facility] Comment:Testing performed by : [address], [address] NRBC abs 0.00 0.00 - 0.01 K/cumm [facility]ECTOR Comment:Testing performed by : [address], [address] Blood 10/17/2024 12:1 1 PM CDT 10/17/2024 12:12 PM CDT Tom Lewis DO LAB BLOOD ORDERABLES Final R esult [facility] [address] [facility] [place] [address] * COLONOSCOPY (10/12/2020 3:51 PM CDT) Anatomical Region Laterality Modality Other Narrative Procedure Note Dharmesh Paul MD PhD - 10/12/2020 3:51 PM CDT ENDOSCOPY LAB Patient Name: Olegario Sheffield Procedure Date: 10/12/2020 3:51 PM Date of : 1955 Admit Type: Outpatient Age: 65 Gender: Male Attending MD: Dharmesh Paul MD,PHD Room: [facility] ENDOSCOPY ROOM 03 Note Status: Finalized Procedure: Colonoscopy Indications: Iron deficiency anemia Providers: Dharmesh Paul MD, PHD Referring MD: Julio Lockhart.NKaran Medicines: Monitored Anesthesia Care Complications: No immediate [...] The scope was passed under direct vision.The [id number] was introduced through the anusand advanced to [...] following this procedure, please call gene at [phone] or [phone] to speak to my acquisitions assistant. After hours and weekends, please call [phone] and ask for the GI fellow content development specialist.Please tell them that Dr. Paul did your procedure and that you were instructed to have the fellow call me orthe physician covering for me to discuss yourcondition. If you have an urgent problem, [facility] and have the ER doctor call myoffice during the day or the GI fellow after hours and weekends. Attending Participation: I personally performed the entire procedure. Electronically signed by Dharmesh Paul MD. 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 Relationship Specialty Start Date End Date Ariana Macario NP [address] [facility] [address] [place] [address] PCP - General Nurse Practitioner 07/05/24 Tom Lewis DO [facility] MEDICAL ONCOLOGY, [facility] [address] [place] [address] Medical Oncologist/Hematologi Hematology and Oncology 08/26/20 Dharmesh Paul MD PhD [facility] [address] [place] [address] Referring Physician Gastroenterology 12/31/20 Yony Hill MD [address] [place] [address] Consulting Physician Cardiology 04/14/22 Ramin Franco MD [address] [place] [address] Referring Physician Gastroenterology 06/03/24 Agustin Stroud MD [address] [place] [address] Consulting Physician Cardiothoracic Surgery 12/10/24
== END 2025-01-02 11:20 | disposition home or self-care (01) ==
PROVIDERS: PCP Nurse Practitioner Family; Visit Provider Nurse Practitioner Family
DX: M43.06 Spondylolysis, lumbar region (principal); M47.816 Spondylosis without myelopathy or radiculopathy, lumbar region; M51.360 Other intervertebral disc degeneration, lumbar region with discogenic back pain only
CPT/HCPCS: 72100